=== PATIENT | male | born 1950 | race Caucasian/White ===

== ENCOUNTER → 2019-03-26 08:13 | Outpatient (BNVA) | payer BC, SELFPAY | PROVIDERS: Family Provider Nurse Practitioner Family; PCP Nurse Practitioner Family; Visit Provider Nurse Practitioner Family | DX: E87.1 Hypo-osmolality and hyponatremia (principal) | CPT/HCPCS: 84295 ==

== ENCOUNTER → 2019-04-05 07:48 | Outpatient (BNVA) | payer BC, SELFPAY | PROVIDERS: Family Provider Nurse Practitioner Family; PCP Nurse Practitioner Family; Visit Provider Anesthesiology | DX: M51.16 Intervertebral disc disorders with radiculopathy, lumbar region (principal); M48.061 Spinal stenosis, lumbar region without neurogenic claudication; M25.519 Pain in unspecified shoulder; M25.551 Pain in right hip | CPT/HCPCS: 62323; 77003; J1040; J2001; J3490 ==

== ENCOUNTER → 2019-05-03 12:40 | Outpatient (BNVA) | payer BC, SELFPAY | PROVIDERS: PCP Nurse Practitioner Family; Visit Provider Nurse Practitioner | DX: G89.29 Other chronic pain (principal); M54.41 Lumbago with sciatica, right side; Z79.891 Long term (current) use of opiate analgesic | CPT/HCPCS: 80053; 85025; 87493; 99212; 99213 ==

== ENCOUNTER → 2019-05-04 13:41 | Outpatient (BNVA) | payer BC, SELFPAY | PROVIDERS: Visit Provider Nurse Practitioner Family | DX: R19.7 Diarrhea, unspecified (principal); M48.061 Spinal stenosis, lumbar region without neurogenic claudication; M51.16 Intervertebral disc disorders with radiculopathy, lumbar region; I10 Essential (primary) hypertension; L30.9 Dermatitis, unspecified | CPT/HCPCS: 82270; 87505 ==

== ENCOUNTER 2019-05-18 12:59 | Outpatient (CLI) | payer BC, SELFPAY ==
[2019-05-18] MEDS: iohexol 300 mg/mL 50 mL Btl PO (13:56)
[2019-05-18] MEDS: iohexol 300 mg/mL 100 mL Btl IV (14:23)
--- NOTE | 2019-05-18 14:30 | CT_ITS ---
WS: [id number] CT ABDOMEN AND PELVIS WITH CONTRAST HISTORY: ABDOMINAL PAIN TECHNIQUE: Imaging performed of the abdomen and pelvis with IV contrast. Single phase imaging of the abdomen. Coronal and sagittal reformats are submitted. All CT scans at [facility] use at least one of these dose optimization techniques: automated exposure control; mA and/or kV adjustment per patient size (includes targeted exams where dose is matched to clinical indication); or iterativ e reconstruction. IV CONTRAST: Omnipaque 300; 95 mL IV. Oral contrast: Yes. DLP: 1224.16 mGycm COMPARISON: None available. Lower thorax: Lung bases are clear. Heart is normal size. Small hiatal hernia. Liver/biliary system: Normal size with no intrahepatic dilatation. Gallbladder: Normal. No gallstones or wall thickening. No pericholecystic fluid. Pancreas: Normal. Spleen: Normal. Adrenal glands: Normal. Right kidney: Normal. Left kidney: Normal. Aorta: Moderate calcification in aorta. No aneurysm. Lymphadenopathy: None. Free fluid: None. GI tract: Normal appendix. There is no constipation. No wall thickening or inflammatory changes. Ther e are a few diverticula in the descending and sigmoid colon with no acute diverticulitis. High densit y foci within the RIGHT colon may be medicinal tablets. Abdominal wall: Unremarkable abdominal wall. No hernia. Pelvis: Urinary bladder is well distended. There is mild diffuse thickening of the bladder wall but n o asymmetry. May be due to partial outlet obstruction. Prostate gland is only slightly enlarged. Bones: Moderate degenerative disc disease at L1-2, L3-4, L4-5. No fracture. Mild RIGHT convex curvatu re the lumbar spine. CT/CT abdomen pelvis w con* [id number] IMPRESSION: 1. No acute abdominal or pelvic abnormalities are identified. 2. Mild constipation. Mild distal diverticulosis without acute diverticulitis. 3. Partially calcified aorta.
== END 2019-05-18 13:00 | disposition home or self-care (01) ==
LOC: RADWPI 13:04
PROVIDERS: PCP Nurse Practitioner Family; Visit Provider Nurse Practitioner Family
DX: K59.00 Constipation, unspecified (principal); K57.90 Diverticulosis of intestine, part unspecified, without perforation or abscess without bleeding; I70.0 Atherosclerosis of aorta; R10.9 Unspecified abdominal pain
CPT/HCPCS: 74177; Q9967

== ENCOUNTER 2019-05-18 14:46 | Outpatient (CLI) | payer BC, SELFPAY ==
--- NOTE | 2019-05-18 15:15 | MR_ITS ---
WS: [id number] MRI LUMBAR SPINE NONCONTRAST TECHNIQUE: Sagittal T1, T2 and STIR imaging. Axial T1 and T2 imaging. CLINICAL INFORMATION: Numbness rt. foot followed by weakness in rt. leg COMPARISON: MRI August 23, 2017. FINDINGS: Mild lumbar curve. No acute compression. Multilevel degenerative disease with mild disc bulging throu ghout the lumbar spine. Prior postoperative changes left hemilaminectomy L4-5. S-shaped thoracolumbar scoliosis. Small disc protrusion T12-L1 with slight effacement of ventral thecal sac. Mild bilateral T12-L1 foraminal narrowing right greater than left. L1-L2: Mild disc bulging and osteophytic ridging. Mild central canal stenosis. Mild facet arthropathy . Moderate left and mild right foraminal narrowing. L2-L3: Mild annular bulging with slight effacement of ventral thecal sac. Moderate facet arthropathy. Spinal canal is patent. Foramen are patent. L3-L4: Mild disc bulging and osteophytic ridging with narrowing of the left subarticular recess. Mode rate facet arthropathy. Moderate left and no significant right foraminal narrowing. Mild central radha l stenosis. L4-L5: Small central disc osteophyte protrusion. Mild central canal stenosis. Narrowing of the subart icular recess bilaterally. Moderate facet arthropathy. Moderate right and mild left foraminal narrowi ng. L5-S1: L5 is partially sacralized. Spinal canal and foramen are patent. Visualized pelvic bony structures: Normal. Paravertebral soft tissues: Normal. MR/MR lumbar spine wo con* [id number] IMPRESSION: 1. Lumbar scoliosis. No acute compression fractures. 2. Mild central canal stenosis L1-2 and L3-4 unchanged. 3. Mild to moderate bony foraminal narrowing worse at left L1-2, left L3-4, an d right L4-5. 4. Narrowing of subarticular recess bilaterally L3-4 with central disc osteoph yte protrusion and mild central canal stenosis. 5. Stable disc osteophyte protrusion L4-5 with narrowing of the subarticular r ecess bilaterally and encroachment traversing L5 nerve roots is unchanged. 6. No significant interval changes since 2018
== END 2019-05-18 14:47 | disposition home or self-care (01) ==
LOC: RADSHAW 14:47
PROVIDERS: PCP Nurse Practitioner Family; Visit Provider Nurse Practitioner
DX: M54.41 Lumbago with sciatica, right side (principal); G89.29 Other chronic pain; M41.86 Other forms of scoliosis, lumbar region; M48.061 Spinal stenosis, lumbar region without neurogenic claudication; M25.78 Osteophyte, vertebrae; M51.26 Other intervertebral disc displacement, lumbar region
CPT/HCPCS: 72148

== ENCOUNTER 2019-06-18 08:05 | Outpatient (CLI) | payer BC, SELFPAY ==
--- NOTE | 2019-06-18 08:17 | XR_ITS ---
WS: [id number] LATERAL LUMBAR SPINE: 3 view. Lateral radiographs are performed in upright neutral, flexion and extension to the patient's toleranc e. HISTORY: Low back pain COMPARISON: 08/23/2017 Advanced degenerative disc disease at L3-4, L4-5 and L1-2. Endplate osteophytes. There is slight retr olisthesis of the lumbar vertebral bodies from L1 to L4. With flexion and extension no instability. S imilar findings as compared to the prior examination. XR/XR lumbar spine f/e only [id number] IMPRESSION: 1. Advanced degenerative spondylosis throughout the lumbar spine. 2. No lumbar spine instability.
--- NOTE | 2019-06-18 08:17 | MR_ITS ---
WS: [id number] MRI LUMBAR SPINE POSTCONTRAST HISTORY: Low back pain COMPARISON: Noncontrast lumbar spine 05/18/2019, 08/23/2017 TECHNIQUE: Sagittal and axial multisequence imaging is submitted. Postcontrast sequences only to be r ead in conjunction with the noncontrast from 05/18/2019. Prior LEFT hemilaminectomy defect at L4-5. S-shaped thoracolumbar scoliosis. Degenerative disc diseas e throughout the lumbar spine as indicated on the prior examination. No discitis or osteomyelitis. There is mild enhancement within the endplates throughout the lumbar sp ine, predominantly anterior and corresponds to areas of decreased signal on the T1 sequence. This cor responds to areas of edema and is probably reactive. No fluid or enhancement within the disc. At the L4-5 level is a LEFT hemilaminectomy defect. There is a small central disc protrusion and oste ophyte. No definite enhancement. Mild central and subarticular recess stenosis. Moderate RIGHT and mi ld LEFT foraminal stenosis. MR/MR lumbar spine w con [id number] IMPRESSION: 1. Status post LEFT hemilaminectomy defect at L4-5. There is a cyst or small c entral disc protrusion and osteophyte. No significant encroachment or narrowing . 2. Mild central and subarticular recess and bilateral foraminal stenosis at do lly osteophytes and ligamentum flavum disease. 3. No discitis or osteomyelitis.
== END 2019-06-18 08:06 | disposition home or self-care (01) ==
LOC: RADWPI 08:09
PROVIDERS: PCP Nurse Practitioner Family; Visit Provider Licensed Practical Nurse
DX: M54.5 Low back pain (principal); M47.816 Spondylosis without myelopathy or radiculopathy, lumbar region; M48.061 Spinal stenosis, lumbar region without neurogenic claudication
CPT/HCPCS: 72120; 72149; A9579

== ENCOUNTER → 2019-07-24 10:57 | Outpatient (BNVA) | payer BC, SELFPAY | PROVIDERS: PCP Nurse Practitioner Family; Visit Provider Nurse Practitioner Family | DX: R19.7 Diarrhea, unspecified (principal) | CPT/HCPCS: 85025 ==

== ENCOUNTER → 2019-09-13 13:26 | Outpatient (BNVA) | payer BC, SELFPAY | PROVIDERS: PCP Nurse Practitioner Family; Visit Provider Anesthesiology | DX: M51.16 Intervertebral disc disorders with radiculopathy, lumbar region (principal); M54.9 Dorsalgia, unspecified; M96.1 Postlaminectomy syndrome, not elsewhere classified; Z98.890 Other specified postprocedural states | CPT/HCPCS: 62323; J1040; J3490 ==

== ENCOUNTER → 2019-09-20 11:33 | Outpatient (BNVA) | payer BC, SELFPAY | PROVIDERS: PCP Nurse Practitioner Family; Visit Provider Nurse Practitioner Family | DX: R19.7 Diarrhea, unspecified (principal); F41.9 Anxiety disorder, unspecified; F32.9 Major depressive disorder, single episode, unspecified; G47.00 Insomnia, unspecified; I10 Essential (primary) hypertension; K57.92 Diverticulitis of intestine, part unspecified, without perforation or abscess without bleeding; E78.5 Hyperlipidemia, unspecified; Z68.29 Body mass index [BMI] 29.0-29.9, adult | CPT/HCPCS: 80053; 80061; 83036; 85025 ==

== ENCOUNTER → 2019-10-15 08:51 | Outpatient (BNVA) | payer BC, SELFPAY | PROVIDERS: PCP Nurse Practitioner Family; Visit Provider Internal Medicine | DX: E87.1 Hypo-osmolality and hyponatremia (principal); K52.9 Noninfective gastroenteritis and colitis, unspecified; I10 Essential (primary) hypertension | CPT/HCPCS: 99203 ==

== ENCOUNTER → 2019-10-17 08:01 | Outpatient (BNVA) | payer BC, SELFPAY | PROVIDERS: PCP Nurse Practitioner Family; Visit Provider Internal Medicine | DX: E87.1 Hypo-osmolality and hyponatremia (principal) | CPT/HCPCS: 80048; 82533; 84443 ==

== ENCOUNTER → 2019-10-24 08:23 | Outpatient (BNVA) | payer BC, SELFPAY | PROVIDERS: PCP Nurse Practitioner Family; Visit Provider Anesthesiology | DX: M51.16 Intervertebral disc disorders with radiculopathy, lumbar region (principal); M47.816 Spondylosis without myelopathy or radiculopathy, lumbar region; M48.061 Spinal stenosis, lumbar region without neurogenic claudication; M54.9 Dorsalgia, unspecified; M96.1 Postlaminectomy syndrome, not elsewhere classified; Z98.890 Other specified postprocedural states; Z79.891 Long term (current) use of opiate analgesic | CPT/HCPCS: 99212; 99213 ==

== ENCOUNTER → 2020-03-28 11:55 | Outpatient (BNVA) | payer BC, SELFPAY | PROVIDERS: PCP Nurse Practitioner Family; Visit Provider Nurse Practitioner Family | DX: E87.1 Hypo-osmolality and hyponatremia (principal); J32.9 Chronic sinusitis, unspecified; J01.00 Acute maxillary sinusitis, unspecified | CPT/HCPCS: 87071; 87880 ==

== ENCOUNTER → 2020-05-09 11:52 | Outpatient (BNVA) | payer BC, SELFPAY | PROVIDERS: PCP Nurse Practitioner Family; Visit Provider Nurse Practitioner Family | DX: I10 Essential (primary) hypertension (principal); Z13.6 Encounter for screening for cardiovascular disorders | CPT/HCPCS: 80053; 80061; 82947; 83036; 84443; 85025 ==

== ENCOUNTER → 2020-05-15 10:01 | Outpatient (BNVA) | payer BC, SELFPAY | PROVIDERS: PCP Nurse Practitioner Family; Visit Provider Anesthesiology | DX: M51.16 Intervertebral disc disorders with radiculopathy, lumbar region (principal); M51.36 Other intervertebral disc degeneration, lumbar region; M47.816 Spondylosis without myelopathy or radiculopathy, lumbar region; M48.061 Spinal stenosis, lumbar region without neurogenic claudication; M54.9 Dorsalgia, unspecified; M96.1 Postlaminectomy syndrome, not elsewhere classified; Z98.890 Other specified postprocedural states | CPT/HCPCS: 62323; J1040; J3490 ==

== ENCOUNTER → 2020-06-13 13:45 | Outpatient (BNVA) | payer BC, SELFPAY | PROVIDERS: PCP Nurse Practitioner Family; Visit Provider Anesthesiology | DX: M48.061 Spinal stenosis, lumbar region without neurogenic claudication (principal); M51.16 Intervertebral disc disorders with radiculopathy, lumbar region; M47.816 Spondylosis without myelopathy or radiculopathy, lumbar region; M51.36 Other intervertebral disc degeneration, lumbar region; M54.9 Dorsalgia, unspecified; M96.1 Postlaminectomy syndrome, not elsewhere classified; Z98.890 Other specified postprocedural states; Z79.891 Long term (current) use of opiate analgesic | CPT/HCPCS: 99212 ==

== ENCOUNTER → 2020-07-10 10:30 | Outpatient (BNVA) | payer BC, SELFPAY | PROVIDERS: PCP Nurse Practitioner Family; Visit Provider Nurse Practitioner Family | DX: R63.5 Abnormal weight gain (principal); I10 Essential (primary) hypertension | CPT/HCPCS: 80053; 82306; 82607; 84443; 85025 ==

== ENCOUNTER → 2020-08-28 11:27 | Outpatient (BNVA) | payer BC, SELFPAY | PROVIDERS: PCP Nurse Practitioner Family; Visit Provider Nurse Practitioner Family | DX: R11.0 Nausea (principal); R63.0 Anorexia; I10 Essential (primary) hypertension; Z68.32 Body mass index [BMI] 32.0-32.9, adult | CPT/HCPCS: 80053; 85025 ==

== ENCOUNTER 2020-09-26 09:29 | Outpatient (CLI) | payer BC, SELFPAY ==
--- NOTE | 2020-09-26 10:00 | NM_ITS ---
WS: [id number] NUCLEAR MEDICINE HIDA SCAN WITH GALLBLADDER EJECTION FRACTION HISTORY: R10.11 - Right upper quadrant pain COMPARISON: None available. TECHNIQUE: The patient was intravenously injected with 5.1 mCi of TC99m Mebrofenin. Immediate imaging over the right upper quadrant was followed by 5 minute image and additional images for a total of 60 minutes. Normal uptake of radiotracer throughout the liver. Activity identified in the gallbladder at 5 minutes and well distended by 60 minutes. Activity in the proximal small bowel was seen by 30 minutes. Good washout of the radiotracer from the liver by 60 minutes. The patient then drank 8 ounces of Ensure Plus. Ejection fraction at 60 minutes was 93%. Normal GB ej ection fraction is 35-75%. Post fatty meal symptoms: None. NM/NM hepatobiliary w phar* [id number] IMPRESSION: 1. Normal HIDA scan. 2. Normal gallbladder ejection fraction.
== END 2020-09-26 09:30 | disposition home or self-care (01) ==
LOC: RAD 09:34
PROVIDERS: PCP Nurse Practitioner Family; Visit Provider Nurse Practitioner Family
DX: R10.11 Right upper quadrant pain (principal)
CPT/HCPCS: 78227; A9537

== ENCOUNTER → 2020-10-30 09:57 | Outpatient (BNVA) | payer BC, SELFPAY | PROVIDERS: PCP Nurse Practitioner Family; Visit Provider Anesthesiology | DX: G89.29 Other chronic pain (principal); M48.061 Spinal stenosis, lumbar region without neurogenic claudication; M51.16 Intervertebral disc disorders with radiculopathy, lumbar region; M51.36 Other intervertebral disc degeneration, lumbar region; M96.1 Postlaminectomy syndrome, not elsewhere classified | CPT/HCPCS: 62323; J1040; J3490 ==

== ENCOUNTER 2020-12-16 08:28 | Outpatient (CLI) | payer BC, SELFPAY ==
--- NOTE | 2020-12-16 08:45 | MR_ITS ---
WS: [id number] MRI LUMBAR SPINE NONCONTRAST HISTORY: M54.5 - Low back pain COMPARISON: 06/18/2019 TECHNIQUE: Sagittal and axial multisequence imaging is submitted. 2 to 3 mm retrolisthesis of T12, L1 and L3. Advanced degenerative disc disease throughout the lumbar spine. Most significant narrowing at L3-4 and L4-5. Endplates T12, L1, L4 and L5. No acute fractures. Conus terminates normally at L1-2 disc level. T12-L1: RIGHT foraminal disc protrusion seen only on the sagittal sequence. L1-L2: Diffuse annular disc bulging and osteophytic ridging. Moderate bilateral facet joint hypertrop hy and ligamentum flavum hypertrophy. Mild central, bilateral subarticular and foraminal stenosis. Sl ightly greater stenosis on the LEFT. No progression since the prior study. L2-L3: Mild annular disc bulging and osteophytic ridging with mild ligamentum flavum and facet arthri tis. No significant stenosis. L3-L4: Diffuse annular disc bulging and osteophytic ridging. Moderate size LEFT paracentral disc prot rusion. Disc and osteophyte contributing to mild central stenosis with deformity of the LEFT lateral thecal sac. Moderate LEFT subarticular recess and foraminal narrowing. Mild RIGHT foraminal narrowing . L4-L5: Moderate annular disc bulge with a focal moderate size central disc protrusion contacting and slightly displacing the thecal sac. Mild contact on the traversing L5 nerve roots. There is also oste ophytic ridging with ligamentum flavum and facet arthritis. Facet arthritis greater on the RIGHT. Mod erate bilateral subarticular and RIGHT foraminal stenosis. Mild LEFT foraminal stenosis. No change. L5-S1: Mild facet joint arthritis. MR/MR lumbar spine wo con* [id number] IMPRESSION: 1. Mild progression of degenerative disc disease and spondylitic changes since 06/18/2019. 2. LEFT paracentral disc protrusion at L3-4 with additional disc and facet dis ease contributing to moderate LEFT subarticular foraminal stenosis. 3. Moderate size central disc protrusion at L4-5 with contact on the traversin g L5 nerve roots. Mild central stenosis at L4-5 with moderate bilateral subarti cular and RIGHT foraminal stenosis. 4. Mild central, bilateral subarticular foraminal stenosis at L1-2.
== END 2020-12-16 08:29 | disposition home or self-care (01) ==
PROVIDERS: PCP Nurse Practitioner Family; Visit Provider Nurse Practitioner Family
DX: G89.29 Other chronic pain (principal); M51.36 Other intervertebral disc degeneration, lumbar region; M51.26 Other intervertebral disc displacement, lumbar region
CPT/HCPCS: 72110; 72148

== ENCOUNTER → 2021-01-16 00:01 | Outpatient (BNVA) | payer BC, SELFPAY | PROVIDERS: PCP Nurse Practitioner Family; Visit Provider Orthopaedic Surgery | DX: Z20.822 Contact with and (suspected) exposure to COVID-19 (principal) | CPT/HCPCS: 87635 ==

== ENCOUNTER 2021-01-23 08:29 | Day surgery (SDC) | payer BC, SELFPAY ==
--- NOTE | 2021-01-20 11:25 | ECG_ITS ---
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 Measurements Intervals Lee Rate: 93 P: 60 IA: 160 QRS: -19 QRSD: 99 T: 21 QT: 328 QTc: 409 Interpretive Statements SINUS RHYTHM WITH OCCASIONAL VENTRICULAR PREMATURE COMPLEXES MINIMAL VOLTAGE CRITERIA FOR LVH, CONSIDER NORMAL VARIANT [MEETS CRITERIA IN ONE OF: R(aVL), S(V1), R(V5), R(V5/V6)+S(V1)] No previous ECG available for comparison Electronically Signed On 01-21-2021 7:38:25 ASSISTED LIVING CARE MANAGER by Sandy Estevez M.D. [id number]
[2021-01-20 11:44] VITALS: BMI 33.2
--- NOTE | 2021-01-20 11:58 | ANES.PREANE2 ---
Pre-Anesthetic Assessment Pre-Anesthetic Assessment: Height/Weight: Height 1.75 m Weight 102.058 kg Proposed Procedure: Operation Date: 01/23/21 09:35 Proposed Procedures p Lumbar Spine Decompression [id number] M48.062(Not Applicable) - Julian Byers, DO Was Beta Rosa taken within 24 hours: Yes Was Clonidine taken within 24 hours: N/A Social: Social History: No tobacco Exam: Pre-Anes Outpt Exam: alert, oriented x 3, clear to auscultation bilaterally and regular rate & rhythm Airway: Submandibular: WNL Cervical ROM: WNL MP: 2 Dentition: False History/ROS: No significant history except as noted and No significant complaints CV/HEM: CV/HEM: HTN GI: GI: GERD (Well-controlled.) Metabolic: Metabolic: Hyperlipidemia and Morbid obesity Comments: BMI 33 Anesthetic Plan: ASA status: 3 Anesthesia: Anesthesia Evaluation and General Risk of > 500 ml blood loss (7ml/kg in children): No PFSH Anesthesia PFSH: Medical History Chronic low back pain Degenerative disc disease, lumbar Diverticulosis DJD (degenerative joint disease), lumbar Hip pain, right History of colon polyps Hyperlipidemia Hypertension Internal hemorrhoids Intervertebral disc disorder with radiculopathy of lumbar region Opioid contract exists Shoulder pain Thoracogenic scoliosis Surgical History History of carpal tunnel surgery History of vasectomy Status post hemilaminotomy 05/21/2015 Dr. Jennifer Madden. Left L3-L4, L4-L5 hemilaminotomy, dissectomy/foraminotomy Family History Father Heart disease Social History Smoking and tobacco status: former smoker (25 years ) Second hand smoke exposure: No Alcohol intake: current Alcohol intake frequency: holidays/special occasions only Lives independently: Yes Household members: spouse Marital status: service: No Current occupational status: retired History of recent travel: No Current gender identity: Male Special danita needs: No Data Anesthesia Cardiac Studies: No Data to Display
[2021-01-23] VITALS (7 sets, daily range): BP systolic 141–158; BP diastolic 87–97; PULSE 68–94; RESP 15–20; TEMP 36.2–36.9; O2SAT 92–99
--- NOTE | 2021-01-23 | SCC_ITS ---
Procedure Done: 1. Right L3/4 laminectomy with partial facetectomy 2. Right L4/5 laminectomy with partial facetectomy 24.4 seconds of fluoroscopic guidance, for a cumulative dose of 18.00 mGy, was provided to Dr. Byers by the radiology department. C-arm images of the lumbar spine were saved for the patient's permanent record. [facility]
--- NOTE | 2021-01-23 | XR_ITS ---
WS: [id number] Lumbar spine, C-arm fluoroscopy, 01/23/2021 Clinical Data: lumbar decompression Comparison: None. Findings: Dr. Byers performed a lumbar decompression. XR/XR lumbar spine 2-3V* [id number] Impression: Lumbar decompression.
--- NOTE | 2021-01-23 09:13 | P.ANESUD_ITS ---
Pre-Anesthetic Update Pre-Anesthetic Assessment: Date of Surgery/Procedure: 01/23/21 Preop Natasha gnosis: Lumbar stenosis Proposed Procedure: Operation Date: 01/23/21 09:50 Proposed Procedures p Lumbar Spine Decompression [id number] M48.062(Not Applicable) - Julian Byers, DO Any changes to Pre-Anesthetic Assessment?: No Last Intake: Intake Last Liquid Date 01/22/21 Last Liquid Time 19:00 Last Solid Date 01/22/21 Last Solid Time 19:00 Vitals: Temperature 98.4 F 01/23/21 08:43 Temperature Source Tympanic 01/23/21 08:43 Pulse Rate 68 01/23/21 08:43 Pulse Rhythm 01/23/21 08:45 Pulse Strength 3+ Normal 01/23/21 08:45 Respiratory Rate 18 01/23/21 08:43 Blood Pressure 141/87 01/23/21 08:43 Blood Pressure Myla n 105 01/23/21 08:43 Pulse Oximetry 96 01/23/21 08:43 Oxygen Delivery Me thod 01/23/21 08:45 Exam: Pre-Anes Outpt Exam: alert, oriented x 3, clear to auscultation bilaterally and regular rate & rhythm Cardiac Studies: No Data to Display
[2021-01-23] MEDS: sodium chloride 0.9% 1,000 ML 30 ML IV (09:15)
--- NOTE | 2021-01-23 09:21 | P.HP_ITS ---
Providers/Chief Complaint Primary Care Provider: SHREE Ackerman Chief Complaint: lumbar decompession History of Present Illness Marcos Marino is a 70 year old male low back pain that radiates into his right hip with no known injury. He is here today with his . He states he has tried epidural injections over the last 3 years with the last injection on 10/30/20 lasting 3 weeks. He feels the last two injections increased his pain. He noted improvement in his pain after his spine surgery in 2016. He is unable to walk any distance without pain. Chief Complaint: low back Onset: years Duration: years Characteristics: stabbing pain Severity: 05/21 Location: low back Radiating symptoms: right hip Aggravating factors: walking, standing Alleviating factors: ibuprofen with minimal relief Neuro deficits: denies numbness, tingling, weakness, incontinence of bowel/bladder, saddle anesthesia. Prior tx: 05/21/15 L3-L4, L4-L5 hemilaminotomy/discectomy/foraminotomy surgery with Dr. Madden,lumbar epidrual injections with relief for 3 weeks last injection on 10/30/20. Review of Systems Narrative: General ROS: negative for weight changes, fever ENT ROS: negative for nasal congestion, drainage or bleeding, sore throat, dysphagia or ear pain Eyes: PERRL Hematological and Lymphatic ROS: negative for swollen glands or abnormal bleeding Endocrine ROS: negative for polyuria/polydpsia or new changes in weight Respiratory ROS: negative for cough, shortness of breath, or wheezing Cardiovascular ROS: negative for chest pain or dyspnea on exertion Gastrointestinal ROS: negative for reflux, abdominal pain, change in bowel habits, or black or bloody stools Musculoskeletal ROS: negative for back pain, neck pain, or joint pain or swelling except for current problem Neurological ROS: negative for TIA or stoke symptoms Skin: no rashes Medications/Allergies Home Medications Medication Instructions Recorded Confirmed Last Taken Type aspirin 81 mg tablet,delayed 81 mg PO DAILY tab 03/27/19 01/23/21 01/15/21 History release multivitamin 1 tab PO QAM 03/27/19 01/23/21 01/20/21 History triamcinolone acetonide 0.1 % 1 applic TOPICAL BID #80 gm 05/03/19 01/20/21 Unknown Rx topical cream diphenoxylate-atropine 2.5 1 tab PO TID PRN #30 tab 11/28/19 01/23/21 Unknown Rx mg-0.025 mg tablet metoprolol tartrate 50 mg tablet 50 mg PO BID #180 tab 08/20/20 01/23/21 01/23/21 Rx sodium chloride 1 gram tablet See Rx Instructions .ROUTE 09/29/20 01/23/21 01/22/21 Rx .COMPLEX #90 tab ondansetron HCl 4 mg tablet See Rx Instructions .ROUTE 11/19/20 01/20/21 Unknown Rx .COMPLEX #30 tab pantoprazole 40 mg tablet,delayed See Rx Instructions .ROUTE 11/19/20 01/23/21 Unknown Rx release .COMPLEX #30 tab budesonide 3 mg PO DAILY 01/20/21 01/23/21 01/23/21 History amlodipine [Norvasc] 10 mg PO DAILY 01/23/21 01/23/21 01/22/21 History atorvastatin 20 mg PO DAILY 01/23/21 01/23/21 01/22/21 History buspirone 10 mg PO DAILY 01/23/21 01/23/21 01/23/21 History lisinopril 40 mg PO DAILY 01/23/21 01/23/21 01/22/21 History Allergies Allergy/AdvReac Type Severity Reaction Status Date / Time No Known Allergies Allergy Verified 01/23/21 08:34 PFSH Acute PFSH: Medical History Chronic low back pain Degenerative disc disease, lumbar Diverticulosis DJD (degenerative joint disease), lumbar Hip pain, right History of colon polyps Hyperlipidemia Hypertension Internal hemorrhoids Intervertebral disc disorder with radiculopathy of lumbar region Opioid contract exists Shoulder pain Thoracogenic scoliosis Surgical History History of carpal tunnel surgery History of vasectomy Status post hemilaminotomy 05/21/2015 Dr. Jennifer Madden. Left L3-L4, L4-L5 hemilaminotomy, dissectomy/foraminotomy Family History Father Heart disease Social History Smoking and tobacco status: former smoker (25 years ) Second hand smoke exposure: No Alcohol intake: current Alcohol intake frequency: holidays/special occasions only Lives independently: Yes Household members: spouse Marital status: service: No Current occupational status: retired History of recent travel: No Current gender identity: Male Special danita needs: No Vitals/I&O/Wt Last Vital Signs Temp 98.4 F 01/23/21 08:43 Pulse 68 01/23/21 08:43 Resp 18 01/23/21 08:43 BP 141/87 01/23/21 08:43 Pulse Ox 96 01/23/21 08:43 Physical Exam Narrative: EXAM NARRATIVE: CONSTITUTIONAL: The patient is a normal appearing [] in no apparent distress. GENERAL: Patient in no acute distress. CARDIAC: Regular rate and rhythm. CHEST: Normal inspiratory effort, normal respiratory rate. ABDOMEN: Soft and nontender. SKIN: Clear, warm and intact. NEURO?PSYCH: The patient is alert and oriented to person, place and time. Sensorv /SILT Motor StrengthShoulder abduction C5 5/5Wrist extension C6 5/5Elbow extension C7 5/5Hand Graphic Design Intern C8 5/5Finger abduction T15/5 Radial/ Ulnar/ Median n intact LowerSensory (SILT)Motor StrengthHin flexion L2/3Ant/inner thigh 5/5Hip adduction L2/3 5/5Knee extension L4 Lat thigh, 5/5Toe dorsiflexion L5 5/5Ankle dorsiflexion L5/ C12Qlwzphj flexion S1 5/5 DTRBleeps 2+Triceps 2+Brachioradialis 2+Patellar 2+Achilles 2+ MUSCULOSKELETAL: [] UPPEREXTREMITIES: The patient had full active ROM in fingers, wrist, elbow, and shoulder. The patient demonstrated ability to fully flex/extend/abduct/adduct fingers, make ok sign, cross 2nd/3rd digits, extend 1st digit fully.. Radial pulse 2+, CR<2 seconds. LOWER EXTREMITIES: Pt has full, active ROM of toes, ankle, knee, and hip. Dorsalis pedis/posterior tibialis pulses 2+, CR<2 seconds. SPINE: Skin warm, dry, intact. Data : 01/23/21 08:59 A&P Assessment and plan (1) Lumbar stenosis with neurogenic claudication: Right L3/4 and L4/5 MIS decompression Status: Acute Attestations Medical Necessity Statement*: failed conservative tx Coding Level of Care Code Acute Planned Giving Officer for Chg Fwd Diagnoses Lumbar stenosis with neurogenic claudication M48.062
--- NOTE | 2021-01-23 09:23 | W.PM.OPSUD ---
Surgery/Procedure H&P Update DATE OF PROCEDURE: January 23, 2021 DATE H&P PERFORMED: 01/23/21 H&P UPDATE INFORMATION: I have reviewed H&P completed within last 30 days PREOP DIAGNOSIS: Lumbar stenosis PLANNED PROCEDURE: Operation Date: 01/23/21 09:50 Proposed Procedures p Lumbar Spine Decompression [id number] M48.062(Not Applicable) - Julian Byers DO
[2021-01-23 09:57] LABS: Anion Gap 13.7 (5-19); Blood Urea Nitrogen 12 mg/dL (8-23); Calcium 8.9 mg/dL (8.5-10.5); Carbon Dioxide 29 mmol/L (22-29); Chloride 91 mmol/L (98-107); Glomerular Filtration Rate 83.9 mL/min (90-130); Glucose 92 mg/dL (65-115); Osmolality Calculated 269 mOsm/kg (285-295); Potassium 3.7 mmol/L (3.5-5.1); Sodium 130 mmol/L (136-145)
--- NOTE | 2021-01-23 11:00 | P.OP_ITS ---
Operative Report Date of procedure: January 23, 2021 Pre-op Diagnosis: Lumbar stenosis with neurogenic claudication Post-op diagnosis: same Procedure Done: 1. Right L3/4 laminectomy with partial facetectomy 2. Right L4/5 laminectomy with partial facetectomy Surgeon: Julian Byers Ironing Machine Operator: Jose Alfredo Escobedo Ironing Machine Operator: The neurosurgical nurse practitioner, Jose Alfredo Escobedo, NEGAR was needed for his expertise under the microscope. He was important and necessary throughout the procedure to complete in a safe and timely manner. He assisted with patient positioning prepping and draping tissue retraction suctioning of the operative field protection of the dural sac and tissue closure Anesthesia: General Estimated blood loss (mL): 5 Condition: stable Disposition: PACU Procedure: Patient is brought to the operative suite. After undergoing anesthesia they are placed in the prone position. All areas of impingement are well padded. Patient is then prepped and draped in the normal sterile fashion. A skin incision is made over the L3/4 level. This is confirmed under c-arm guidance. A series of dilators are passed and the tubular retractor is docked on the L3 lamina. A bovie is used to clear the soft tissue off the lamina and the L 3/4 facet joint. A high speed alfonzo is then used to perform the laminectomy and take down the medial aspect of the L 3/4 facet joint. A kerrison rongeure was then used to take down the remaining lamina and smooth the edge of the laminectomy up to the point where the ligamentum flavum attaches. Attention was then brought to the medial aspect of the facet joint. The remai trudy medial aspect of the superior and inferior aspect of the facet joint were taken down with the kerrison from the pedicle of L3 to L 4. The facet joint had significant hypertrophy. Attention was then brought to the Ligamentum Flavum. The ligament was taken down from the lamina of L3 to L4 and out medially to the remaining facet joint. The ligament was thick. The dura was then exposed. The dura was in good repair. The L3 nerve was then traced with a curette out the L3/4 foramen and found to be adequately decompressed. The L4 nerve was traced with a curette around the L4 pedicle. The lateral recess was opened with a kerrison helping to further decompress the L4 nerve. A skin incision is made over the L4/5 level. This is confirmed under c-arm guidance. A series of dilators are passed and the tubular retractor is docked on the L4 lamina. A bovie is used to clear the soft tissue off the lamina and the L 4/5 facet joint. A high speed alfonzo is then used to perform the laminecto my and take down the medial aspect of the L 4/5 facet joint. A kerrison rongeure was then used to take down the remaining lamina and smooth the edge of the laminectomy up to the point where the ligamentum flavum attaches. Attention was then brought to the medial aspect of the facet joint. The remaining medial aspect of the superior and inferior aspect of the facet joint were taken down with the kerrison from the pedicle of L4 to L 5. The facet joint had significant hypertrophy. Attention was then brought to the Ligamentum Flavum. The ligament was taken down from the lamina of L4 to L5 and out medially to the remaining facet joint. The ligament was thick. The dura was then exposed. The dura was in good repair. The L4 nerve was then traced with a curette out the L4/5 foramen and found to be adequately decompressed. The L5 nerve was traced with a curette around the L5 pedicle. The lateral recess was opened with a kerrison helping to further decompress the L5 nerve. Wound is then irrigated copiously with saline and surgiflo is used to stop any bleeding. The tubular retractor is removed and the wound is closed with vicryl and monocryl suture. Glue is then used to protect the wound. A sterile dressing is then placed. Patient was then placed in the supine position and transferred to the PACU in stable condition.
[2021-01-23] MEDS: HYDROcodone-acetaminophen 5-325 mg Tablet 1 TAB PO (12:07)
== END 2021-01-23 12:18 | disposition home or self-care (01) ==
PROVIDERS: PCP Nurse Practitioner Family; Visit Provider Orthopaedic Surgery
PROC: (CPT 63005; principal; 2021-01-23 09:50)
DX: M48.062 Spinal stenosis, lumbar region with neurogenic claudication (principal); G89.29 Other chronic pain; I10 Essential (primary) hypertension; M54.50 Low back pain, unspecified; M51.36 Other intervertebral disc degeneration, lumbar region; Z79.82 Long term (current) use of aspirin
CPT/HCPCS: 63047; 63048; 72100; 76000; 80048; 93005; J0690; J1100; J2405; J2704; J2710; J3010; J3490; J7030

== ENCOUNTER → 2021-02-23 10:19 | Outpatient (BNVA) | payer BC, SELFPAY | PROVIDERS: PCP Nurse Practitioner Family; Visit Provider Nurse Practitioner Family | DX: I10 Essential (primary) hypertension (principal); K52.9 Noninfective gastroenteritis and colitis, unspecified; K50.90 Crohn's disease, unspecified, without complications; R79.89 Other specified abnormal findings of blood chemistry | CPT/HCPCS: 80053; 80061; 82607; 83036; 84439; 84443; 85025 ==

== ENCOUNTER 2021-03-10 10:59 | Outpatient (RCR) | payer BC, SELFPAY | END 2021-03-13 23:59 | disposition home or self-care (01) | LOC: TPT 10:59 | PROVIDERS: PCP Nurse Practitioner Family; Referring Provider Orthopaedic Surgery; Visit Provider Orthopaedic Surgery | DX: M48.061 Spinal stenosis, lumbar region without neurogenic claudication (principal) | CPT/HCPCS: 97110; 97163 ==

== ENCOUNTER 2021-03-14 06:00 | Outpatient (RCR) | payer BC, SELFPAY | END 2021-04-13 23:59 | disposition home or self-care (01) | LOC: TPT 06:00 | PROVIDERS: PCP Nurse Practitioner Family; Referring Provider Orthopaedic Surgery; Visit Provider Orthopaedic Surgery | DX: Z47.89 Encounter for other orthopedic aftercare (principal) | CPT/HCPCS: 97110 ==

== ENCOUNTER 2021-03-23 14:28 | Outpatient (CLI) | payer BC, SELFPAY ==
[2021-03-28 18:32] LABS: Pancreatic Elastase-1 472 mcg/g
== END 2021-03-23 14:29 | disposition home or self-care (01) ==
PROVIDERS: PCP Nurse Practitioner Family; Visit Provider Internal Medicine Gastroenterology
DX: K52.9 Noninfective gastroenteritis and colitis, unspecified (principal); K51.90 Ulcerative colitis, unspecified, without complications
CPT/HCPCS: 82710; 83520; 87506

== ENCOUNTER 2021-04-14 06:00 | Outpatient (RCR) | payer BC, SELFPAY | END 2021-04-24 23:59 | disposition home or self-care (01) | LOC: TPT 06:00 | PROVIDERS: PCP Nurse Practitioner Family; Referring Provider Orthopaedic Surgery; Visit Provider Orthopaedic Surgery | DX: M48.061 Spinal stenosis, lumbar region without neurogenic claudication (principal) | CPT/HCPCS: 97110; 97164 ==

== ENCOUNTER → 2021-09-30 15:05 | Outpatient (BNVA) | payer BC, SELFPAY | PROVIDERS: PCP Nurse Practitioner Family; Visit Provider Emergency Medicine | DX: M25.532 Pain in left wrist (principal); M19.042 Primary osteoarthritis, left hand | CPT/HCPCS: 73110 ==

== ENCOUNTER → 2021-10-01 11:49 | Outpatient (BNVA) | payer BC, SELFPAY | PROVIDERS: PCP Nurse Practitioner Family; Visit Provider Nurse Practitioner Family | DX: R79.89 Other specified abnormal findings of blood chemistry (principal); E78.5 Hyperlipidemia, unspecified; E87.1 Hypo-osmolality and hyponatremia; F41.9 Anxiety disorder, unspecified; F32.9 Major depressive disorder, single episode, unspecified; I10 Essential (primary) hypertension; M25.531 Pain in right wrist | CPT/HCPCS: 80053; 84550 ==

== ENCOUNTER → 2021-10-21 08:37 | Outpatient (BNVA) | payer BC, SELFPAY | PROVIDERS: PCP Nurse Practitioner Family; Visit Provider Nurse Practitioner Family | DX: M25.531 Pain in right wrist (principal); R73.9 Hyperglycemia, unspecified; R79.89 Other specified abnormal findings of blood chemistry; E87.1 Hypo-osmolality and hyponatremia; E78.5 Hyperlipidemia, unspecified; I10 Essential (primary) hypertension | CPT/HCPCS: 80053; 80061; 83036; 84439; 84443; 84550; 85025; G0103 ==

== ENCOUNTER → 2021-11-19 09:08 | Outpatient (BNVA) | payer BC, SELFPAY | PROVIDERS: PCP Nurse Practitioner Family; Visit Provider Family Medicine | DX: M48.062 Spinal stenosis, lumbar region with neurogenic claudication (principal); R79.89 Other specified abnormal findings of blood chemistry | CPT/HCPCS: 80053; 86705; 86706; 86709; 86803; 87340 ==

== ENCOUNTER → 2021-12-31 09:06 | Outpatient (BNVA) | payer BC, SELFPAY | PROVIDERS: PCP Nurse Practitioner Family; Visit Provider Nurse Practitioner Family | DX: E87.1 Hypo-osmolality and hyponatremia (principal) | CPT/HCPCS: 80048 ==

== ENCOUNTER → 2022-06-15 14:10 | Outpatient (BNVA) | payer BC, SELFPAY | PROVIDERS: PCP Nurse Practitioner Family; Visit Provider Physician Assistant | DX: M51.36 Other intervertebral disc degeneration, lumbar region (principal); M48.062 Spinal stenosis, lumbar region with neurogenic claudication | CPT/HCPCS: 72110 ==

== ENCOUNTER 2022-07-07 13:26 | Outpatient (CLI) | payer BC, SELFPAY ==
--- NOTE | 2022-07-07 13:45 | MR_ITS ---
WS: [id number] MRI LUMBAR SPINE NONCONTRAST HISTORY: fall COMPARISON: 12/16/2020 TECHNIQUE: Sagittal and axial multisequence imaging is submitted. Retrolisthesis of T12 and L1. No marrow edema or fracture. Advanced degenerative disc disease and spo ndylitic changes. No fracture. Marrow edema in the adjacent endplates of T12 and L1. Conus terminates normally at L1-2 disc level. T12-L1: Diffuse annular disc bulging and osteophytic ridging. Central, bilateral subarticular recess and foraminal stenosis. Similar to the prior study. L1-L2: Diffuse annular disc bulging and osteophytic ridging with facet arthritis. Greater facet joint arthritis on the LEFT. Mild central, bilateral subarticular recess and foraminal stenosis. L2-L3: Diffuse annular disc bulging slightly greater to the RIGHT. Ligamentum flavum and facet arthri tis. Mild central, bilateral subarticular recess and foraminal stenosis. L3-L4: Diffuse annular disc bulging with osteophytic ridging. LEFT paracentral disc protrusion contac ting and displacing the thecal sac. Mild central with moderate bilateral subarticular recess and fora shaggy stenosis. Greater contact on the traversing LEFT L4 nerve root. L4-L5: Marked annular disc bulging with osteophytic ridging and facet disease. Central disc protrusio n. Mild central with moderate bilateral subarticular recess and foraminal stenosis. L5-S1: Bilateral facet joint arthritis. No high-grade stenosis. Paravertebral soft tissues are unchanged. Atherosclerosis aorta. MR/MR lumbar spine wo con* [id number] IMPRESSION: 1. Mild progression of degenerative disc and facet disease throughout the lumb ar spine since 2020. 2. LEFT paracentral disc protrusion at L3-4 is reidentified. This protrusion c ontacts the traversing LEFT L4 nerve root. There is mild central with moderate bilateral subarticular recess and foraminal stenosis at L3-4 which is mildly pr ogressed. 3. Central disc protrusion at L4-5 with moderate bilateral subarticular recess and foraminal stenosis. Mild progression since the prior study. 4. Mild central, bilateral subarticular recess and foraminal stenosis at T12-L 1, L1-2 and L2-3. 5. No acute fracture. Small amount of marrow edema in the adjacent endplates o f T12 and L1.
== END 2022-07-07 13:27 | disposition home or self-care (01) ==
LOC: RAD 13:33
PROVIDERS: PCP Nurse Practitioner Family; Visit Provider Physician Assistant
DX: M48.062 Spinal stenosis, lumbar region with neurogenic claudication (principal); M47.816 Spondylosis without myelopathy or radiculopathy, lumbar region; M51.26 Other intervertebral disc displacement, lumbar region; W18.30XA Fall on same level, unspecified, initial encounter; Y93.9 Activity, unspecified; Y92.9 Unspecified place or not applicable; Y99.9 Unspecified external cause status
CPT/HCPCS: 72148

== ENCOUNTER → 2022-07-15 11:48 | Outpatient (BNVA) | payer BC, SELFPAY | PROVIDERS: PCP Nurse Practitioner Family; Visit Provider Nurse Practitioner Family | DX: R73.9 Hyperglycemia, unspecified (principal) | CPT/HCPCS: 80053; 80061; 81000; 82306; 82607; 83036; 83735; 84443; 85025; G0103 ==

== ENCOUNTER 2022-07-16 16:23 | Observation (INO) | payer BC, SELFPAY ==
[2022-07-16] VITALS (7 sets, daily range): BP systolic 120–150; BP diastolic 77–103; PULSE 61–77; RESP 18; TEMP 36.7; O2SAT 94–97; BMI 31.8
--- NOTE | 2022-07-16 19:31 | USR_ITS ---
PROCEDURE INFORMATION: Exam: US Abdomen, Limited; Right Upper Quadrant Exam date and time: 07/16/2022 9:40 PM Age: 71 years old Clinical indication: Abdominal pain; Acute; Additional info: Ruq, PT is jaundiced, eval ruq and epigastric TECHNIQUE: Imaging protocol: Real time ultrasound of the abdomen with image documentation. Limited exam focused on the right upper quadrant. COMPARISON: US abdomen limited [id number] 01/20/2017 7:26 AM FINDINGS: Liver: Liver is 19 cm, echogenic. No focal liver mass is noted. Gallbladder: The gallbladder contains sludge. It also contains a tiny 9 mm polyp. No gallbladder wall thickening. Biliary ducts: No evidence of intrahepatic biliary dilation. No CBD dilation. Pancreas: The pancreas is not well seen due to overlying bowel gas. It shows no focal abnormality, however. Right kidney: Unremarkable. No solid renal mass or hydronephrosis. Intraperitoneal space: Ubfy-ve-hdiuines free fluid. US/US abdomen limited [id number] IMPRESSION: 1. Gallbladder sludge and a subcentimeter polyp with no strong sonographic evidence of cholelithiasis or cholecystitis. 2. Large and fatty liver. 3. Ubbq-es-eysadbmx ascites.
--- NOTE | 2022-07-16 19:52 | W.ED.RECABL ---
HPI - Recheck/Abnormal Lab/Rx General: Chief Complaint: Recheck/Abnormal Lab/Rx Stated Complaint: abnormal labs Time Seen by Provider: 07/16/22 18:40 Source: patient and family Mode of arrival: ambulatory (With cane) Limitations: no limitations History of Present Illness: Patient presents emergency department today accompanied by his for evaluation treatment of abnormal labs. Patient states he was at his primary care doctor yesterday for his normal yearly examination. He had been having various symptoms-primarily fatigue and concentrated urine that was brought up yesterday. Patient's chart review also indicates he had been having lower blood pressure readings with some lightheadedness and he began weaning himself off of his blood pressure medications. Patient states as of yesterday, his primary care doctor encouraged him to take half of a metoprolol pill in the morning and at night-he is to hold his other blood pressure medications. Patient also has not had his levothyroxine since January. He states there was some sort of mixup at the pharmacy and he received 1 month of the medication back in December but has not had any since. Patient states he was told he had various abnormal labs but, they were very concerned regarding his liver tests and wanted him to come to the emergency department. states the patient does go through times of binge drinking. She reports he will drink heavily for a few months at a time. Patient reports when he drinks, he will have 15-18 beers a day during these times. Patient has not had a binging episode for approximately 3 weeks. Patient reports random vomiting without specific abdominal pains. He reports feeling bloated and has had hardly any appetite for quite some time. He has not noticed any skin rash or skin itching. He has not noticed any change in his stooling but, feels like his urination is extremely concentrated, malodorous, and is urinating quite frequently at night, but not very often through the day. Review of Systems General: Reports: 10 or more systems reviewed and unremarkable except in HPI and below PFSH ED PFSH: Medical History Chronic low back pain Degenerative disc disease, lumbar Diverticulosis DJD (degenerative joint disease), lumbar Hip pain, right History of colon polyps Hyperlipidemia Hypertension Internal hemorrhoids Intervertebral disc disorder with radiculopathy of lumbar region Motion sickness Opioid contract exists Shoulder pain Thoracogenic scoliosis Surgical History History of carpal tunnel surgery History of vasectomy Status post hemilaminotomy 05/21/2015 Dr. Jennifer Madden. Left L3-L4, L4-L5 hemilaminotomy, dissectomy/foraminotomy Family History Father Heart disease Social History Smoking and tobacco status: former smoker Second hand smoke exposure: No Alcohol intake: current Alcohol intake frequency: holidays/special occasions only Substance/Drug Use: never Caregiver/support person: Yes (spouse) Lives independently: Yes Household members: spouse Marital status: service: No Current occupational status: retired Current gender identity: Male Special danita needs: No Physical Exam Const: COMMON NORMALS: no acute distress, patient oriented x3 and alert HENMT: COMMON NORMALS: normocephalic, atraumatic, hearing grossly normal bilaterally and moist oral mucous membranes HEAD & SCALP: normocephalic and atraumatic Eye: COMMON NORMALS: Equal, round and reactive pupils present and EOMs intact bilaterally PUPIL: Yes Equal, round and reactive pupils present OTHER: Patient has yellowing of the conjunctivea bilaterally Neck/C-Spine: COMMON NORMALS: full ROM and no JVD Lymph: LYMPHATIC: no lymphadenopathy noted Resp: COMMON NORMALS: normal respiratory effort, No retractions, No use of accessory muscles and clear to auscultation bilaterally AUSCULTATION: clear to auscultation bilaterally Cardio: COMMON NORMALS: no JVD, regular rate and regular rhythm RATE: regular rate RHYTHM: regular rhythm GI: OTHER: Abdomen appears bloated and is somewhat firm but, nontender on palpation in the right upper quadrant or the epigastric region. Quiet bowel sounds throughout. : COMMON NORMALS: Yes no CVA tenderness BLADDER/KIDNEY EXAM: Yes no CVA tenderness Back/Pelvis: COMMON NORMALS: no CVA tenderness, no thoracic nor lumbar tenderness and thoraco-lumbar ROM normal Extremity: COMMON NORMALS: normal to inspection, full ROM and capillary refill normal Neuro: COMMON NORMALS: patient oriented x3 SENSORIUM/ORIENTATION: Yes alert Psych: COMMON NORMALS: mental status grossly normal, Normal thought process present, cooperative, normal affect and activity/motor behavior normal THOUGHT PROCESS: Normal thought process present Skin: COMMON NORMALS: no rashes or lesions noted and no wounds NARRATIVE SKIN EXAM: Patient has obvious yellowing of the head and face-patient is shaved bald and scalp is visible. GENERAL SKIN EXAM: no rashes or lesions noted Course Vital Signs: Vital signs: Vital Signs Temperature 98.0 F 07/16/22 16:47 Pulse Rate 61 07/17/22 00:11 Respiratory Rate 18 07/17/22 00:11 Blood Pressure 160/98 07/17/22 00:11 Pulse Oximetry 96 07/17/22 00:11 Oxygen Delivery Me thod Room Air 07/17/22 00:11 MDM - Recheck/Abnormal Lab/Rx Medical Decision Making Patient presented to the emergency department today after being requested to present due to abnormal lab work from his primary care office yesterday. Patient has multiple abnormal labs however, the most concerning are his elevated bilirubin levels. I was able to tell patient was jaundiced upon while walking into his room however, patient and did not notice any yellowing over the last several weeks. Patient's abdomen is bloated but was nontender. Patient does not have any acute nausea or vomiting but has had random vomiting in the past. Patient has had some issues with his blood pressure and, while he was here has had some lower and some much higher blood pressure readings. However, they have seemed to even out and appears stable at this time. Patient's ultrasound and CT examination are concerning for enlarged and fatty liver with noticeable ascites. He does have what could be gallbladder sludge but, no signs of any biliary dilatation. I did discuss the case with Dr. Beckford throughout the patient's evaluation. At this point, due to the elevated bilirubin levels and ascites, patient would benefit from inpatient evaluation. Dr. Beckford reached out to the hospitalist services (Dr Puentes) who agreed to visit the patient at bedside and admit here. Patient was notified of his results and our concerns including the recommendation for inpatient admission. Patient and agreed. We will defer care to hospitalist services at this time for further evaluation and intervention. Differential Diagnosis Unlikely encounter for medication refill (Elevated LFTs, elevated bilirubin, cholecystitis, pancreatic mass, pancreatitis, multiple abnormal laboratory tests) Lab Data 07/16/22 18:59 07/16/22 18:59 Radiology Impressions Abdomen Ultrasound 07/16/22 19:31 IMPRESSION: 1. Gallbladder sludge and a subcentimeter polyp with no strong sonographic evidence of cholelithiasis or cholecystitis. 2. Large and fatty liver. 3. Tzug-pc-kpjyzthb ascites. Abdomen/Pelvis CT 07/16/22 22:16 IMPRESSION: 1. Large and fatty liver with mild ascites throughout. 2. No evidence of biliary dilation. 3. No small bowel obstruction, abscess or free air. 4. Numerous chronic findings above. Tiny gallstone versus gallbladder polyp or sludge. Laboratory Results WBC 12.2 10^3/uL (4.0-10.0) H 07/16/22 18:59 RBC 4.02 10^6/uL (4.1-5.3) L 07/16/22 18:59 Hgb 13.7 g/dL (11.7-16.6) 07/16/22 18:59 Hct 39.9 % (42.0-52.0) L 07/16/22 18:59 MCV 99.3 fl (80-94) H 07/16/22 18:59 MCH 34.1 pg (28.0-34.0) H 07/16/22 18:59 MCHC 34.3 g/dL (30.0-36.0) 07/16/22 18:59 RDW 16.1 % (12.1-15.1) H 07/16/22 18:59 Plt Count 359 10^3/cmm (130-400) 07/16/22 18:59 MPV 10.7 fL (7.4-10.4) H 07/16/22 18:59 Neut % (Auto) 74.0 % 07/16/22 18:59 Lymph % (Auto) 13.1 % 07/16/22 18:59 [place] % (Auto) 8.5 % 07/16/22 18:59 Eos % (Auto) 1.7 % 07/16/22 18:59 Baso % (Auto) 0.8 % 07/16/22 18:59 Neut # (Auto) 9.00 10^3/uL (1.8-7.7) H 07/16/22 18:59 Lymph # (Auto) 1.6 10^3/uL (0.8-4.8) 07/16/22 18:59 [place] # (Auto) 1.0 10^3/uL (0.2-0.9) H 07/16/22 18:59 Eos # (Auto) 0.2 10^3/uL (0.0-0.8) 07/16/22 18:59 Baso # (Auto) 0.1 10^3/uL (0.0-0.1) 07/16/22 18:59 Nucleated RBC % (auto) 0 % 07/16/22 18:59 Nucleated RBCs # 0.0 /100WBC 07/16/22 18:59 ESR 16 mm/hr (0-10) H 07/16/22 18:59 PT 15.10 SECONDS (12.1-14.9) H 07/16/22 20:13 INR 1.15 (0.8-1.2) 07/16/22 20:13 Sodium 127 mmol/L (136-145) L 07/16/22 18:59 Potassium 4.1 mmol/L (3.5-5.1) 07/16/22 18:59 Chloride 88 mmol/L (98-107) L 07/16/22 18:59 Carbon Dioxide 31 mmol/L (22-29) H 07/16/22 18:59 Anion Gap 12.1 (5-19) 07/16/22 18:59 BUN 11 mg/dL (8-23) 07/16/22 18:59 Creatinine 0.6 mg/dL (0.7-1.2) L 07/16/22 18:59 GFR Calculation 133.6 mL/min (90-130) H 07/16/22 18:59 Glucose 97 mg/dL (65-115) 07/16/22 18:59 Calculated Osmolality 263 mOsm/kg (285-295) L 07/16/22 18:59 Calcium 8.1 mg/dL (8.5-10.5) L 07/16/22 18:59 Total Bilirubin 5.4 mg/dL (0.15-1.2) H 07/16/22 18:59 AST 139 U/L (0-40) H 07/16/22 18:59 ALT 72 U/L (0-41) H 07/16/22 18:59 Alkaline Phosphatase 369 U/L (40-130) H 07/16/22 18:59 C-Reactive Protein 73.6 mg/L (0.0-4.9) H 07/16/22 18:59 Total Protein 5.9 g/dL (6.6-8.7) L 07/16/22 18:59 Albumin 3.0 g/dL (3.5-5.2) L 07/16/22 18:59 Globulin 2.9 g/dL (1.3-4.6) 07/16/22 18:59 Lipase 12 U/L (13-60) L 07/16/22 18:59 Free T4 1.52 ng/dL (0.82-1.77) 07/16/22 18:59 Urine Color Val (Yellow) 07/16/22 19:37 Urine Appearance Clear (CLEAR) 07/16/22 19:37 Urine pH 6 (5-7) 07/16/22 19:37 Ur Specific [place] 1.015 (1.005-1.030) 07/16/22 19:37 Urine Protein Trace (Negative) 07/16/22 19:37 Urine Glucose (UA) Norm (Normal) 07/16/22 19:37 Urine Ketones 1+ (Negative) H 07/16/22 19:37 Urine Blood Neg (Negative) 07/16/22 19:37 Urine Nitrate Negative (Negative) 07/16/22 19:37 Urine Bilirubin 1+ (Negative) H 07/16/22 19:37 Urine Urobilinogen 12 mg/dL (Negative) H 07/16/22 19:37 Ur Leukocyte Esterase Trace (Negative) H 07/16/22 19:37 Urine RBC 0-4 /hpf (0-2) H 07/16/22 19:37 Urine WBC 5-10 /hpf (0-5) H 07/16/22 19:37 Ur Squamous Epith Cells 0-4 /hpf (0-5) H 07/16/22 19:37 Amorphous Sediment Not Reportable 07/16/22 19:37 Urine Bacteria Trace /hpf (NONE) 07/16/22 19:37 Urine Mucus 4+ /hpf 07/16/22 19:37 Acetaminophen < 5.0 ug/mL (10-30) L 07/16/22 23:41 Ethyl Alcohol < 10 mg/dL (0-10) 07/16/22 23:41 Hepatitis A IgM Ab Non-reactive (Nonreactive) 07/16/22 18:59 Hep Bs Antigen Non-reactive (Nonreactive) 07/16/22 18:59 Hep Bs Antibody 3.5 (11.5-1000) L 07/16/22 18:59 Hep B Core Total Ab Non-reactive (Nonreactive) 07/16/22 18:59 Hepatitis C Antibody Non-reactive (Nonreactive) 07/16/22 18:59 Discharge Plan Discharge Patient Disposition: Admitted As Inpatient Clinical Impression: Elevated LFTs, Ascites, Elevated bilirubin, Jaundice, Fatty infiltration of liver, Hepatomegaly Condition: Stable Coding Level of Care Code ED Staff Home Therapy Rn for Abe Nguyen
[2022-07-16 19:56] LABS: Basophils # 0.1 10^3/uL (0.0-0.1); Basophils % 0.8 %; Eosinophils # 0.2 10^3/uL (0.0-0.8); Eosinophils % 1.7 %; Hematocrit 39.9 % (42.0-52.0); Hemoglobin 13.7 g/dL (11.7-16.6); Lymphocytes # 1.6 10^3/uL (0.8-4.8); Lymphocytes % 13.1 %; Mean Corpuscular HGB Conc 34.3 g/dL (30.0-36.0); Mean Corpuscular Hemoglobin 34.1 pg (28.0-34.0); Mean Corpuscular Volume 99.3 fl (80-94); Mean Platelet Volume 10.7 fL (7.4-10.4); Monocytes % 8.5 %; Nucleated Red Blood Cells % 0 %; Platelet Count 359 10^3/cmm (130-400); Red Blood Count 4.02 10^6/uL (4.1-5.3); Red Cell Distribution Width 16.1 % (12.1-15.1); White Blood Count 12.2 10^3/uL (4.0-10.0)
[2022-07-16 20:05] LABS: Erythrocyte Sedimentation Rate 16 mm/hr (0-10)
[2022-07-16 20:15] LABS: Alanine Aminotransferase 72 U/L (0-41); Alkaline Phosphatase 369 U/L (40-130); Anion Gap 12.1 (5-19); Aspartate Amino Transferase 139 U/L (0-40); Blood Urea Nitrogen 11 mg/dL (8-23); C Reactive Protein 73.6 mg/L (0.0-4.9); Calcium 8.1 mg/dL (8.5-10.5); Carbon Dioxide 31 mmol/L (22-29); Chloride 88 mmol/L (98-107); Globulin 2.9 g/dL (1.3-4.6); Glomerular Filtration Rate 133.6 mL/min (90-130); Glucose 97 mg/dL (65-115); Lipase 12 U/L (13-60); Osmolality Calculated 263 mOsm/kg (285-295); Potassium 4.1 mmol/L (3.5-5.1); Sodium 127 mmol/L (136-145); Total Bilirubin 5.4 mg/dL (0.15-1.2); Total Protein 5.9 g/dL (6.6-8.7)
[2022-07-16 20:19] LABS: Add Urine Culture? No; Add Urine Microscopic? YES; Bacteria Urine TRACE /hpf; Bilirubin Urine 1+ (Negative); Blood Urine Neg (Negative); Glucose Urine UA Norm (Normal); Ketones Urine 1+ (Negative); Leukocyte Esterase Urine Trace (Negative); Mucus Urine 4+ /hpf; Nitrate Urine Negative (Negative); Protein Urine Trace (Negative); RBC Urine 0-4 /hpf (0-2); Specific Gravity, Urine 1.015 (1.005-1.030); Squamous Epithelial Cell Urine 0-4 /hpf (0-5); Urine Appearance Clear (CLEAR); Urine Color Amber (Yellow); Urobilinogen Urine 12 mg/dL (Negative); pH Urine 6 (5-7)
[2022-07-16 20:55] LABS: INR 1.15 (0.8-1.2)
[2022-07-16] MEDS: sodium chloride 0.9% 1,000 ML 999 ML IV (20:55)
[2022-07-16 21:45] LABS: Free T4 Free Thyroxine 1.52 ng/dL (0.82-1.77)
[2022-07-16 21:51] LABS: Hepatitis A Antibody IgM Non-Reactive (Nonreactive); Hepatitis B Core AB, Total Non-Reactive (Nonreactive); Hepatitis B Surface AB 3.5 (11.5-1000); Hepatitis B Surface Antigen Non-Reactive (Nonreactive); Hepatitis C Virus Antibody Non-Reactive (Nonreactive)
--- NOTE | 2022-07-16 22:16 | CTR_ITS ---
PROCEDURE INFORMATION: Exam: CT Abdomen And Pelvis With Contrast Exam date and time: 07/16/2022 10:41 PM Age: 71 years old Clinical indication: Other: Jaundice, elevated liver enzymes; Additional info: Jaundice, elevated bili, urobili, ast/alt, HX of alcohol TECHNIQUE: Imaging protocol: Computed tomography of the abdomen and pelvis with contrast. Radiation optimization: All CT scans at this facility use at least one of these dose optimization techniques: automated exposure control; mA and/or kV adjustment per patient size (includes targeted exams where dose is matched to clinical indication); or iterative reconstruction. Contrast material: OMNI 350; Contrast volume: 100 ml; Contrast route: INTRAVENOUS (IV); REPORTING DATA: Count of CT and Cardiac NM exams in prior 12 months: This patient has received 0 known CTs and 0 known cardiac nuclear medicine studies in the 12 months prior to the current study. COMPARISON: CT abdomen pelvis w con* [id number] 05/18/2019 2:20 PM RADIATION DOSE METRICS: Total DLP (mGy-cm): 1051.27 FINDINGS: Lungs: Mild areas of bilateral mid to lower lung atelectasis or scarring. Diaphragm: Very small hiatal hernia. Liver: Liver is large and fatty. Gallbladder and bile ducts: Tiny gallbladder stone or polyp on series 4, image 38 Pancreas: Atrophic pancreas with no enhancing mass. Spleen: The spleen is not enlarged. No suspicious enhancing mass is noted. Adrenal glands: Normal. No mass. Kidneys and ureters: No solid renal mass or hydronephrosis. Stomach and bowel: Moderate sigmoid diverticulosis. Appendix: No evidence of appendicitis. Intraperitoneal space: Mild free fluid. Mild diffuse mesenteric edema. Mild pelvic free fluid. Vasculature: Advanced diffuse vascular calcification noted. No AAA. Lymph nodes: No enlarged lymph nodes. Urinary bladder: Unremarkable as visualized. Reproductive: Prostate is large. Bones/joints: No acute fracture. Moderate spine DJD. Soft tissues: Partially assessed gynecomastia. CT/CT abdomen pelvis w con* [id number] IMPRESSION: 1. Large and fatty liver with mild ascites throughout. 2. No evidence of biliary dilation. 3. No small bowel obstruction, abscess or free air. 4. Numerous chronic findings above. Tiny gallstone versus gallbladder polyp or sludge.
[2022-07-16] MEDS: iohexol 350 mg/mL 500 mL Btl (per mL) IV (22:53)
[2022-07-16 23:58] LABS: Acetaminophen < 5.0 ug/mL (10-30); Alcohol Level < 10 mg/dL (0-10)
[2022-07-17] VITALS (9 sets, daily range): BP systolic 121–160; BP diastolic 84–98; PULSE 61–103; RESP 15–18; TEMP 36.5–36.9; O2SAT 93–96; BMI 31.7
--- NOTE | 2022-07-17 01:13 | PM.HP ---
Providers/Chief Complaint Primary Care Provider: SHREE Ackerman Chief Complaint: abnormal labs History of Present Illness Marcos Marino is a 71 year old male with a past medical history of hypothyroidism, hypertension, Crohn's disease, who presents to [facility] due to concerns for hyperbilirubinemia on his outpatient labs, and jaundiced appearance. Patient tells me that for the last few days he has felt tired and fatigued, no fevers, no chills. No abdominal pain, no diarrhea, he does report indigestion. No fevers, no chills, no weight loss. No night sweats. Denies any cough, no shortness of breath, no chest pain, no neck pain, headache, no blurry vision, no dysuria. Denies history of IV drug use, denies a history of hepatitis. Denies any recent stressors. He does report a history of alcoholism, binge drinking alcohol, he describes it as he will drink alcohol for 3 months and then quit for 6 months, and that 3 months he can drink up to 12 cans of beer a day, last time he did this was 3 weeks ago, no history of alcohol withdrawal, Review of Systems Const: Reports: fatigue and malaise; Denies: fever(s) or chills Eyes: Denies: change in vision Card: Denies: chest pain Resp: Denies: dyspnea GI: Denies: abdominal pain : Denies: flank pain or difficulty urinating Musc: Denies: neck pain Medications/Allergies Home Medications Medication Instructions Recorded Confirmed Last Taken Type aspirin 81 mg tablet,delayed 81 mg PO DAILY 03/27/19 07/15/22 01/15/21 History release multivitamin (Multiple Vitamins 1 tab PO QAM 03/27/19 07/15/22 01/20/21 History tablet) triamcinolone acetonide 0.1 % 1 applic topical BID #80 grams 10/01/21 07/15/22 Unknown Rx topical cream sodium chloride 1 gram tablet See Rx Instructions .Route 10/20/21 07/15/22 Unknown Rx .COMPLEX #90 tabs cyclobenzaprine 5 mg tablet 5 mg PO TID PRN muscle spasm #60 11/05/21 07/15/22 Unknown Rx tabs levothyroxine 25 mcg tablet 25 mcg PO DAILY #90 tabs 11/05/21 07/15/22 Unknown Rx atorvastatin 20 mg tablet See Rx Instructions .Route 02/08/22 07/15/22 Unknown Rx .COMPLEX #90 tabs lisinopril 40 mg tablet See Rx Instructions .Route 03/09/22 07/15/22 Unknown Rx .COMPLEX #90 tabs buspirone 10 mg tablet See Rx Instructions .Route 06/07/22 07/15/22 Unknown Rx .COMPLEX #60 tabs tramadol 50 mg tablet 50 mg PO Q8H PRN pain #42 tabs 07/13/22 07/15/22 Unknown Rx intraoperative neuromonitoring #1 ea 07/15/22 Unknown Rx amlodipine 5 mg tablet See Rx Instructions .Route 07/16/22 Unknown Rx .COMPLEX #90 tabs metoprolol tartrate 50 mg tablet See Rx Instructions .Route 07/16/22 Unknown Rx .COMPLEX #180 tabs Allergies Allergy/AdvReac Type Severity Reaction Status Date / Time No Known Allergies Allergy Verified 07/15/22 08:32 PFSH Acute PFSH: Medical History Chronic low back pain Degenerative disc disease, lumbar Diverticulosis DJD (degenerative joint disease), lumbar Hip pain, right History of colon polyps Hyperlipidemia Hypertension Internal hemorrhoids Intervertebral disc disorder with radiculopathy of lumbar region Motion sickness Opioid contract exists Shoulder pain Thoracogenic scoliosis Surgical History History of carpal tunnel surgery History of vasectomy Status post hemilaminotomy 05/21/2015 Dr. Jennifer Madden. Left L3-L4, L4-L5 hemilaminotomy, dissectomy/foraminotomy Family History Father Heart disease Social History Smoking and tobacco status: former smoker Second hand smoke exposure: No Alcohol intake: current Alcohol intake frequency: holidays/special occasions only Substance/Drug Use: never Caregiver/support person: Yes (spouse) Lives independently: Yes Household members: spouse Marital status: service: No Current occupational status: retired Current gender identity: Male Special danita needs: No Vitals/I&O/Wt Last Vital Signs Temp 98.0 F 07/16/22 16:47 Pulse 61 07/17/22 00:11 Resp 18 07/17/22 00:11 BP 160/98 07/17/22 00:11 Pulse Ox 96 07/17/22 00:11 O2 Del Method Room Air 07/17/22 00:11 Weight last 48 hrs Weight 97.976 kg Physical Exam Const: COMMON NORMALS: no acute distress and patient oriented x3 OTHER: Scleral icterus, jaundiced appearance HENMT: COMMON NORMALS: normocephalic HEAD & SCALP: normocephalic Eye: COMMON NORMALS: Equal, round and reactive pupils present and EOMs intact bilaterally Neck/C-Spine: COMMON NORMALS: no JVD Resp: COMMON NORMALS: normal respiratory effort, No retractions, No use of accessory muscles and clear to auscultation bilaterally AUSCULTATION: clear to auscultation bilaterally Cardio: COMMON NORMALS: no JVD, regular rate, regular rhythm, S1 normal heart sound present and S2 normal heart sound present RATE: regular rate RHYTHM: regular rhythm HEART SOUNDS: S1 normal heart sound present and S2 normal heart sound present GI: COMMON NORMALS: Normal to inspection, nondistended, normoactive bowel sounds present, Soft to palpation and non-tender PALPATION: Yes Soft to palpation and Yes No hepatosplenomegaly present : COMMON NORMALS: Yes no CVA tenderness Extremity: COMMON NORMALS: no calf tenderness and no pedal edema Neuro: COMMON NORMALS: patient oriented x3, CN's II-XII intact bilaterally, moves all extremities and no focal motor deficits Psych: COMMON NORMALS: mental status grossly normal Data 07/16/22 18:59 07/16/22 18:59 A&P Assessment and plan (1) Elevated bilirubin: (2) Jaundice: (3) Hyponatremia: (4) Elevated LFTs: Plan Patient with hyperbilirubinemia elevated alk phos, transaminitis -Does have history of alcoholism, certainly alcohol could be playing a role -CT scan, no intra or extrahepatic biliary dilatation, does have sludge in the gallbladder -No recent stressors -We will order GGT, fractionated bilirubin, monitor bilirubin trend -If bilirubin trend continues to increase, will do an MRCP for possible biliary stricture, or stone -We will hydrate him if it improves then certainly can discharge him home have him 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
[2022-07-17] MEDS: metoprolol tartrate 50 mg Tablet PO ×2 (02:17→09:07)
[2022-07-17] MEDS: enoxaparin 40 mg/0.4 mL Syringe SUBCUT (02:58)
[2022-07-17] MEDS: sodium chloride 0.9% 1,000 ML 75 ML IV (02:59)
[2022-07-17 03:48] LABS: Basophils # 0.1 10^3/uL (0.0-0.1); Basophils % 0.7 %; Eosinophils # 0.4 10^3/uL (0.0-0.8); Eosinophils % 2.9 %; Lymphocytes % 7.3 %; Mean Corpuscular HGB Conc 34.2 g/dL (30.0-36.0); Mean Corpuscular Volume 99.5 fl (80-94); Mean Platelet Volume 10.1 fL (7.4-10.4); Monocytes # 1.2 10^3/uL (0.2-0.9); Monocytes % 8.5 %; Neutrophils # 10.78 10^3/uL (1.8-7.7); Neutrophils % 79.1 %; Nucleated Red Blood Cells % 0 %; Platelet Count 305 10^3/cmm (130-400); Red Blood Count 3.82 10^6/uL (4.1-5.3); Red Cell Distribution Width 16.2 % (12.1-15.1); White Blood Count 13.6 10^3/uL (4.0-10.0)
[2022-07-17 04:04] LABS: Lactic Sepsis W/Reflex 1.7 mmol/L (0.5-2.2)
[2022-07-17 04:11] LABS: Alanine Aminotransferase 66 U/L (0-41); Albumin Level 2.6 g/dL (3.5-5.2); Alkaline Phosphatase 362 U/L (40-130); Anion Gap 10.4 (5-19); Aspartate Amino Transferase 140 U/L (0-40); Blood Urea Nitrogen 10 mg/dL (8-23); Calcium 7.9 mg/dL (8.5-10.5); Carbon Dioxide 29 mmol/L (22-29); Chloride 92 mmol/L (98-107); Globulin 2.2 g/dL (1.3-4.6); Glomerular Filtration Rate 111.8 mL/min (90-130); Glucose 116 mg/dL (65-115); Osmolality Calculated 266 mOsm/kg (285-295); Potassium 3.4 mmol/L (3.5-5.1); Sodium 128 mmol/L (136-145); Total Bilirubin 4.8 mg/dL (0.15-1.2); Total Protein 4.8 g/dL (6.6-8.7)
[2022-07-17 04:13] LABS: HIV 1 & 2 Antibody Non-Reactive (Non-Reactiv); HIV 1 & 2 Antigen Non-Reactive (Non-Reactiv); Procalcitonin 0.42 ng/mL (0-0.5)
[2022-07-17 04:24] LABS: Amylase 53 U/L (28-100); Chol HDL Ratio 10.24 mg/dL (1.0-5.00); Cholesterol 174 mg/dL (0-200); HDL Cholesterol 17 mg/dL (60-100); LDL Cholesterol Calculated 138 mg/dL (50-129); LDL HDL Ratio 8.12 RATIO (0.00-3.22); Total Bilirubin 4.8 mg/dL (0.15-1.2); Triglycerides 96 mg/dL (0-150)
[2022-07-17 04:48] LABS: Gamma Glutamyl Transferase 673 U/L (8-61)
[2022-07-17 06:09] LABS: Amphetamines Screen Urine Negative (Negative); Barbiturates Screen Urine Negative (Negative); Benzodiazepines Screen Urine Negative (Negative); Cocaine Screen Urine Negative (Negative); Opiate Screen Urine Negative (Negative); PCP Screen Urine Negative (Negative); THC Screen Urine Negative (Negative)
[2022-07-17] MEDS: BuSPIRONE 10 mg Tablet PO (09:06)
[2022-07-17] MEDS: aspirin 81 mg EC Tablet PO (09:07)
[2022-07-17] MEDS: amlodipine 5 mg Tablet PO (09:07)
[2022-07-17] MEDS: levothyroxine 25 mcg Tablet PO (09:07)
[2022-07-17 14:02] LABS: Alanine Aminotransferase 64 U/L (0-41); Albumin Level 2.6 g/dL (3.5-5.2); Alkaline Phosphatase 346 U/L (40-130); Anion Gap 10.7 (5-19); Aspartate Amino Transferase 129 U/L (0-40); Blood Urea Nitrogen 7 mg/dL (8-23); Calcium 7.7 mg/dL (8.5-10.5); Carbon Dioxide 29 mmol/L (22-29); Chloride 95 mmol/L (98-107); Globulin 2.9 g/dL (1.3-4.6); Glomerular Filtration Rate 133.6 mL/min (90-130); Glucose 115 mg/dL (65-115); Osmolality Calculated 271 mOsm/kg (285-295); Potassium 3.7 mmol/L (3.5-5.1); Sodium 131 mmol/L (136-145); Total Bilirubin 4.7 mg/dL (0.15-1.2); Total Protein 5.5 g/dL (6.6-8.7)
--- NOTE | 2022-07-17 14:19 | P.DS_ITS ---
Discharge Providers Date of Admission: 07/17/22 02:40 Date of Discharge: July 17, 2022 Attending Provider at Admission: Joseph Puentes MD Attending Provider at Discharge: Chidi Nunes MD Primary Care Provider: SHREE Ackerman Diagnoses at Discharge Discharge Diagnosis (1) Elevated bilirubin: Status: Acute (2) Jaundice: Status: Acute (3) Hyponatremia: Status: Acute (4) Elevated LFTs: Status: Acute Reason for Visit Reason for Visit: abnormal labs Brief History: Marcos Marino is a 71 year old male with a past medical history of hypothyroidism, hypertension, Crohn's disease, who presents to [facility] due to concerns for hyperbilirubinemia on his outpatient labs, and jaundiced appearance.? Patient tells me that for the last few days he has felt tired and fatigued, no fevers, no chills.? No abdominal pain, no diarrhea, he does report indigestion.? No fevers, no chills, no weight loss.? No night sweats.? Denies any cough, no shortness of breath, no chest pain, no neck pain, headache, no blurry vision, no dysuria.? Denies history of IV drug use, denies a history of hepatitis.? Denies any recent stressors.? He does report a history of alcoholism, binge drinking alcohol, he describes it as he will drink alcohol for 3 months and then quit for 6 months, and that 3 months he can drink up to 12 cans of beer a day, last time he did this was 3 weeks ago, no history of alcohol withdrawal, Hospital Course Hospital Course Admitted for elevated bilirubin and LFT's. pt has hx of alcohol use disorder, hypothyroidism, HTN, and crohns disease. was placed on IVF. Pt was able to tolerate diet well. no abdominal pain, blurry vision, confusion, SOB, CP, [place]. No Hx of hepatitis. LFT's slowly improved during hospital stay. Pt did not endourse any abdominal pain, nausea, emesis, diarrhea during hospital admission. states he feels fine. Initially decision was made to hold MRCP if values improved. Since they have improved pt desires to have this managed out patient. Agreed to refrain from alcohol use, fatty food intake and to f/u with PCP in 3 days for re peat blood work. 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 [facility] Physical Exam Const: COMMON NORMALS: no acute distress and patient oriented x3 OTHER: Scleral icterus, jaundiced appearance HENMT: COMMON NORMALS: normocephalic HEAD & SCALP: normocephalic Eye: COMMON NORMALS: Equal, round and reactive pupils present and EOMs intact bilaterally PUPIL: Yes Equal, round and reactive pupils present Neck/C-Spine: COMMON NORMALS: no JVD Resp: COMMON NORMALS: normal respiratory effort, No retractions, No use of accessory muscles and clear to auscultation bilaterally AUSCULTATION: clear to auscultation bilaterally Cardio: COMMON NORMALS: no JVD, regular rate, regular rhythm, S1 normal heart sound present and S2 normal heart sound present RATE: regular rate RHYTHM: regular rhythm HEART SOUNDS: S1 normal heart sound present and S2 normal heart sound present GI: COMMON NORMALS: Normal to inspection, nondistended, normoactive bowel sounds present, Soft to palpation, non-tender and No hepatosplenomegaly present PALPATION: Yes Soft to palpation and Yes No hepatosplenomegaly present : COMMON NORMALS: Yes no CVA tenderness BLADDER/KIDNEY EXAM: Yes no CVA tenderness Back/Pelvis: COMMON NORMALS: no CVA tenderness Extremity: COMMON NORMALS: no calf tenderness and no pedal edema Neuro: COMMON NORMALS: patient oriented x3, CN's II-XII intact bilaterally, moves all extremities and no focal motor deficits Psych: COMMON NORMALS: mental status grossly normal Discharge Data Studies Completed and Pending Completed Studies During Hospitalization Category Date Time Status CT abdomen pelvis w con* [id number] Stat Cat Scan 07/16/22 22:16 Completed US abdomen limited [id number] Stat Ultrasound 07/16/22 19:31 Completed Pending at discharge Category Date Time Status AMA [Mitochondrial AB Screen] Stat Lab 07/17/22 03:32 Received JAVIER Profile Rheumatology Stat Lab 07/17/22 03:32 Received Complete Blood Count w/Auto AM LABS Lab 07/18/22 04:00 Ordered Comprehensive Metabolic Panel AM LABS Lab 07/18/22 04:00 Ordered T3 Total Stat Lab 07/16/22 19:31 Ordered T4, Thyroxine, Total Stat Lab 07/16/22 19:31 Ordered Radiology Impressions Abdomen Ultrasound 07/16/22 19:31 IMPRESSION: 1. Gallbladder sludge and a subcentimeter polyp with no strong sonographic evidence of cholelithiasis or cholecystitis. 2. Large and fatty liver. 3. Mlic-hq-glawvpwe ascites. Abdomen/Pelvis CT 07/16/22 22:16 IMPRESSION: 1. Large and fatty liver with mild ascites throughout. 2. No evidence of biliary dilation. 3. No small bowel obstruction, abscess or free air. 4. Numerous chronic findings above. Tiny gallstone versus gallbladder polyp or sludge. Laboratory Results WBC 13.6 10^3/uL (4.0-10.0) H 07/17/22 03:32 RBC 3.82 10^6/uL (4.1-5.3) L 07/17/22 03:32 Hgb 13.0 g/dL (11.7-16.6) 07/17/22 03:32 Hct 38.0 % (42.0-52.0) L 07/17/22 03:32 MCV 99.5 fl (80-94) H 07/17/22 03:32 MCH 34.0 pg (28.0-34.0) 07/17/22 03:32 MCHC 34.2 g/dL (30.0-36.0) 07/17/22 03:32 RDW 16.2 % (12.1-15.1) H 07/17/22 03:32 Plt Count 305 10^3/cmm (130-400) 07/17/22 03:32 MPV 10.1 fL (7.4-10.4) 07/17/22 03:32 Neut % (Auto) 79.1 % 07/17/22 03:32 Lymph % (Auto) 7.3 % 07/17/22 03:32 [place] % (Auto) 8.5 % 07/17/22 03:32 Eos % (Auto) 2.9 % 07/17/22 03:32 Baso % (Auto) 0.7 % 07/17/22 03:32 Neut # (Auto) 10.78 10^3/uL (1.8-7.7) H 07/17/22 03:32 Lymph # (Auto) 1.0 10^3/uL (0.8-4.8) 07/17/22 03:32 [place] # (Auto) 1.2 10^3/uL (0.2-0.9) H 07/17/22 03:32 Eos # (Auto) 0.4 10^3/uL (0.0-0.8) 07/17/22 03:32 Baso # (Auto) 0.1 10^3/uL (0.0-0.1) 07/17/22 03:32 Nucleated RBC % (auto) 0 % 07/17/22 03:32 Nucleated RBCs # 0.0 /100WBC 07/17/22 03:32 ESR 16 mm/hr (0-10) H 07/16/22 18:59 PT 15.10 SECONDS (12.1-14.9) H 07/16/22 20:13 INR 1.15 (0.8-1.2) 07/16/22 20:13 Sodium 131 mmol/L (136-145) L 07/17/22 13:20 Potassium 3.7 mmol/L (3.5-5.1) 07/17/22 13:20 Chloride 95 mmol/L (98-107) L 07/17/22 13:20 Carbon Dioxide 29 mmol/L (22-29) 07/17/22 13:20 Anion Gap 10.7 (5-19) 07/17/22 13:20 BUN 7 mg/dL (8-23) L 07/17/22 13:20 Creatinine 0.6 mg/dL (0.7-1.2) L 07/17/22 13:20 GFR Calculation 133.6 mL/min (90-130) H 07/17/22 13:20 Glucose 115 mg/dL (65-115) 07/17/22 13:20 Calculated Osmolality 271 mOsm/kg (285-295) L 07/17/22 13:20 Lactic Acid 1.7 mmol/L (0.5-2.2) 07/17/22 03:32 Calcium 7.7 mg/dL (8.5-10.5) L 07/17/22 13:20 Total Bilirubin 4.7 mg/dL (0.15-1.2) H 07/17/22 13:20 Direct Bilirubin 3.80 mg/dL (0.00-0.30) H 07/17/22 03:32 Indirect Bilirubin 1.00 07/17/22 03:32 GGT 673 U/L (8-61) H 07/17/22 03:32 AST 129 U/L (0-40) H 07/17/22 13:20 ALT 64 U/L (0-41) H 07/17/22 13:20 Alkaline Phosphatase 346 U/L (40-130) H 07/17/22 13:20 C-Reactive Protein 73.6 mg/L (0.0-4.9) H 07/16/22 18:59 Total Protein 5.5 g/dL (6.6-8.7) L 07/17/22 13:20 Albumin 2.6 g/dL (3.5-5.2) L 07/17/22 13:20 Globulin 2.9 g/dL (1.3-4.6) 07/17/22 13:20 Triglycerides 96 mg/dL (0-150) 07/17/22 03:32 Cholesterol 174 mg/dL (0-200) 07/17/22 03:32 LDL Cholesterol, Calc 138 mg/dL (50-129) H 07/17/22 03:32 HDL Cholesterol 17 mg/dL (60-100) L 07/17/22 03:32 LDL/HDL Ratio 8.12 RATIO (0.00-3.22) H 07/17/22 03:32 Cholesterol/HDL Ratio 10.24 mg/dL (1.0-5.00) H 07/17/22 03:32 Amylase 53 U/L (28-100) 07/17/22 03:32 Lipase 12 U/L (13-60) L 07/16/22 18:59 Procalcitonin 0.42 ng/mL (0-0.5) 07/17/22 03:32 TSH 11.20 uIU/mL (0.27-4.20) H 07/17/22 03:32 Free T4 1.52 ng/dL (0.82-1.77) 07/16/22 18:59 Urine Color Val (Yellow) 07/16/22 19:37 Urine Appearance Clear (CLEAR) 07/16/22 19:37 Urine pH 6 (5-7) 07/16/22 19:37 Ur Specific [place] 1.015 (1.005-1.030) 07/16/22 19:37 Urine Protein Trace (Negative) 07/16/22 19:37 Urine Glucose (UA) Norm (Normal) 07/16/22 19:37 Urine Ketones 1+ (Negative) H 07/16/22 19:37 Urine Blood Neg (Negative) 07/16/22 19:37 Urine Nitrate Negative (Negative) 07/16/22 19:37 Urine Bilirubin 1+ (Negative) H 07/16/22 19:37 Urine Urobilinogen 12 mg/dL (Negative) H 07/16/22 19:37 Ur Leukocyte Esterase Trace (Negative) H 07/16/22 19:37 Urine RBC 0-4 /hpf (0-2) H 07/16/22 19:37 Urine WBC 5-10 /hpf (0-5) H 07/16/22 19:37 Ur Squamous Epith Cells 0-4 /hpf (0-5) H 07/16/22 19:37 Amorphous Sediment Not Reportable 07/16/22 19:37 Urine Bacteria Trace /hpf (NONE) 07/16/22 19:37 Urine Mucus 4+ /hpf 07/16/22 19:37 Urine Opiates Screen Negative ng/mL (Negative) 07/17/22 Unknown Acetaminophen < 5.0 ug/mL (10-30) L 07/16/22 23:41 Ur Barbiturates Screen Negative ng/mL (Negative) 07/17/22 Unknown Ur Phencyclidine Scrn Negative ng/mL (Negative) 07/17/22 Unknown Ur Amphetamines Screen Negative ng/mL (Negative) 07/17/22 Unknown U Benzodiazepines Scrn Negative ng/mL (Negative) 07/17/22 Unknown Urine Cocaine Screen Negative ng/mL (Negative) 07/17/22 Unknown U Marijuana (THC) Screen Negative ng/mL (Negative) 07/17/22 Unknown Ethyl Alcohol < 10 mg/dL (0-10) 07/16/22 23:41 Hepatitis A IgM Ab Non-reactive (Nonreactive) 07/16/22 18:59 Hep Bs Antigen Non-reactive (Nonreactive) 07/16/22 18:59 Hep Bs Antibody 3.5 (11.5-1000) L 07/16/22 18:59 Hep B Core Total Ab Non-reactive (Nonreactive) 07/16/22 18:59 Hepatitis C Antibody Non-reactive (Nonreactive) 07/16/22 18:59 HIV 1&2 Ab & HIV 1 Ag Non-reactive (Non-Reactiv) 07/17/22 03:32 HIV 1&2 Antibody Non-reactive (Non-Reactiv) 07/17/22 03:32 Vitals Last Vital Signs Temp 97.8 F 07/17/22 12:00 Pulse 76 07/17/22 12:00 Resp 15 07/17/22 12:00 BP 144/87 07/17/22 08:06 Pulse Ox 94 07/17/22 12:00 O2 Del Method Room Air 07/17/22 12:00 Discharge Plan Discharge Patient Disposition: Home Condition: Stable Prescriptions: New amlodipine 5 mg Tablet 5 mg PO DAILY Qty: 30 0RF metoprolol tartrate 50 mg Tablet 50 mg PO BID Qty: 60 0RF Continued aspirin 81 mg tablet,delayed release (DR/EC) 81 mg PO DAILY multivitamin [Multiple Vitamins] Tablet 1 tab PO QAM triamcinolone acetonide 0.1 % cream 1 applic TOPICAL BID Qty: 80 0RF cyclobenzaprine 5 mg tablet 5 mg PO TID PRN (Reason: muscle spasm) Qty: 60 1RF Rx Instructions: one tab by mouth every 8 hours as needed for muscle spasm levothyroxine 25 mcg tablet 25 mcg PO DAILY Qty: 90 0RF tramadol 50 mg tablet 50 mg PO Q8H PRN (Reason: pain) Qty: 42 0RF sodium chloride 1 gram tablet See Rx Instructions .ROUTE .COMPLEX Qty: 90 0RF Dose Instruction: Take 1 tablet by mouth once daily Rx Instructions: Take 1 tablet by mouth once daily atorvastatin 20 mg tablet See Rx Instructions .ROUTE .COMPLEX Qty: 90 1RF Dose Instruction: Take 1 tablet by mouth once daily Rx Instructions: Take 1 tablet by mouth once daily buspirone 10 mg tablet See Rx Instructions .ROUTE .COMPLEX Qty: 60 0RF Dose Instruction: Take 1 tablet by mouth twice daily Rx Instructions: Take 1 tablet by mouth twice daily Discontinued (DME) intraoperative neuromonitoring See Rx Instructions .ROUTE .MEDSUPPLY Qty: 1 0RF Rx Instructions: As directed metoprolol tartrate 50 mg tablet 25 mg PO BID Discharge Orders: Discharge Order (Routine); Ordered 07/17/22 Ordered By: Chidi Nunes Referrals: Radha Desai FNP [Primary Care Provider] - 1-3 days (f/u LFT's and bilibrubin will need [facility] hepatology) Discharge Diet: Cardiac Discharge Activity: Resume usual activity Patient Instructions: Opioid Safety Discharge Attestations Time Spent in Discharge Care*: greater than 30 min Quality Metrics Clinical Quality Measures [ No reported AMI, CVA or VTE this stay] Coding Level of Care Code 02987 Diagnoses Elevated bilirubin R17 Jaundice R17 Hyponatremia E87.1 Elevated LFTs R79.89
[2022-07-20 00:30] LABS: T4 Total 8.9 mcg/dL (4.9-10.5)
[2022-07-20 00:54] LABS: T3 Total 90 ng/dL (76-181)
[2022-07-20 14:29] LABS: ANA SCREEN, IFA NEGATIVE (NEGATIVE)
[2022-07-20 16:49] LABS: CENTROMERE B ANTIBODY <1.0 NEG AI (<1.0 NEG); JO-1 ANTIBODY <1.0 NEG AI (<1.0 NEG); RNP ANTIBODY <1.0 NEG AI (<1.0 NEG); SCL-70 ANTIBODY <1.0 NEG AI (<1.0 NEG); SJOGREN'S ANTIBODY (SS-A) <1.0 NEG AI (<1.0 NEG); SM ANTIBODY <1.0 NEG AI (<1.0 NEG); SS-B <1.0 NEG AI (<1.0 NEG)
[2022-07-20 17:10] LABS: THYROID PEROXIDASE ANTIBODIES 55 IU/mL (<9)
[2022-07-21 13:19] LABS: COMPLEMENT COMPONENT C3C 188 mg/dL (82-185); COMPLEMENT COMPONENT C4C 43 mg/dL (15-53)
[2022-07-21 14:24] LABS: COMPLEMENT, TOTAL (CH50) 33 U/mL (31-60)
[2022-07-22 14:44] LABS: DNA AB (DS) CRITHIDIA,IFA NEGATIVE (NEGATIVE)
== END 2022-07-17 15:15 | disposition home or self-care (01) ==
LOC: ER 07-17 00:22 → MEDSURG 07-17 06:36
PROVIDERS: Emergency Medicine; Admitting Provider Family Medicine; Emergency Provider Physician Assistant; PCP Nurse Practitioner Family; Visit Provider Family Medicine
DX: R18.8 Other ascites (principal); K76.0 Fatty (change of) liver, not elsewhere classified; E80.6 Other disorders of bilirubin metabolism; E87.1 Hypo-osmolality and hyponatremia; R74.01 Elevation of levels of liver transaminase levels; R79.89 Other specified abnormal findings of blood chemistry; I10 Essential (primary) hypertension; E78.5 Hyperlipidemia, unspecified; E03.9 Hypothyroidism, unspecified; Z79.899 Other long term (current) drug therapy; Z79.82 Long term (current) use of aspirin; Z87.891 Personal history of nicotine dependence
CPT/HCPCS: 36415; 74177; 76705; 80053; 80061; 80306; 80307; 81001; 82150; 82247; 82248; 82977; 83516; 83605; 83690; 84145; 84436; 84439; 84443; 84480; 85025; 85610; 85651; 86140; 86160; 86162; 86235; 86255; 86376; 86705; 86706; 86709; 86803; 87340; 87806; 94664; 96372; 99285; G0378; J1650; J7030; Q9967

== ENCOUNTER → 2022-07-19 11:20 | Outpatient (BNVA) | payer BC, SELFPAY | PROVIDERS: PCP Nurse Practitioner Family; Visit Provider Nurse Practitioner Family | DX: R17 Unspecified jaundice (principal) | CPT/HCPCS: 80053; 82247; 82248; 85025 ==

== ENCOUNTER → 2022-08-03 12:42 | Outpatient (BNVA) | payer BC, SELFPAY | PROVIDERS: PCP Nurse Practitioner Family; Visit Provider Nurse Practitioner Family | DX: R17 Unspecified jaundice (principal) | CPT/HCPCS: 80048; 80076; 85025 ==

== ENCOUNTER → 2022-09-13 11:02 | Outpatient (BNVA) | payer BC, SELFPAY | PROVIDERS: PCP Nurse Practitioner Family; Visit Provider Nurse Practitioner Family | DX: R79.89 Other specified abnormal findings of blood chemistry (principal); E03.9 Hypothyroidism, unspecified | CPT/HCPCS: 80053; 84443; 85025 ==

== ENCOUNTER → 2022-09-30 10:20 | Outpatient (BNVA) | payer BC, SELFPAY | PROVIDERS: PCP Nurse Practitioner Family; Visit Provider Nurse Practitioner Family | DX: I10 Essential (primary) hypertension (principal) | CPT/HCPCS: 80053; 80061; 81000; 85025 ==

== ENCOUNTER 2022-11-01 13:52 | Inpatient (IN) | payer BC, SELFPAY ==
[2022-10-29 11:41] VITALS: BMI 30.4
[2022-11-01] VITALS (23 sets, daily range): BP systolic 103–129; BP diastolic 66–92; PULSE 63–97; RESP 14–18; TEMP 35.8–36.1; O2SAT 98–100
--- NOTE | 2022-11-01 | XR_ITS ---
WS: [id number] EXAMINATION: XR lumbar spine 2-3V* [id number] L-SPINE : Postoperative extensive spinal fusion. REASON FOR EXAM: OR pic. T10 to the pelvis instrumented fusion COMPARISON: None available. ORDER DATE: 11/01/2022 12:00 AM FINDINGS: Surgical instrumentation for spinal fusion is demonstrated with continuous melisa and pedicle screws ext ending from the T9 level through the upper sacrum with trans sacroiliac joint screws bilaterally also present. There appears to be normal vertebral alignment. IMPRESSION: Postoperative spinal fusion change as noted above.
[2022-11-01] MEDS: sodium chloride 0.9% 1,000 ML 30 ML IV (09:35)
[2022-11-01] MEDS: methadone 10 mg Tablet PO (09:35)
[2022-11-01] MEDS: ceFAZolin 2,000 MG in sodium chloride 0.9% (plus) 50 ML 100 MG IV ×2 (10:05→17:59)
[2022-11-01] MEDS: heparin, porcine 1,000 unit/mL INJ 10 mL 6000 UNIT XX (10:40)
[2022-11-01] MEDS: vancomycin 1,000 MG SDV 1000 MG (10:40)
[2022-11-01] MEDS: lidocaine-epi 1% 20 mL INJ (10:40)
--- NOTE | 2022-11-01 11:08 | ANES.PREANE2 ---
Pre-Anesthetic Assessment Height/Weight: Height 1.73 m Weight 90.718 kg Temp Pulse Resp BP Pulse Ox O2 Del Method 97.0 F L 63 18 125/83 99 Room Air 11/01/22 09:19 11/01/22 09:19 11/01/22 09:19 11/01/22 09:19 11/01/22 09:19 11/01/22 09:19 Preop Diagnosis: DDD lumbar, lumbar stenosis with neurogenic claudication Operation Date: 11/01/22 10:20 Proposed Procedures p B13-[place] si joint fusion, L5/S1 PLIF and decompression 3-s1,T10 90590,L1 10248,L2 39605, L3 63216,L4 19780, L5/S1 04606,cage 97326, instrumentation 92719, Si joint fusion 45151, lumbo pelvis fixation 21120, Lumbar stenosis with neurogenic claudication M48.062(Not Applicable) - Julian Byers, Familial anesthetic complications: none Was Beta Rosa taken within 24 hours: N/A Was Clonidine taken within 24 hours: N/A Last intake: Intake Last Liquid Date 10/31/22 Last Liquid Time 22:30 Last Solid Date 10/31/22 Last Solid Time 20:00 Social No alcohol and No tobacco Exam alert, oriented x 3, clear to auscultation bilaterally and regular rate & rhythm Airway Submandibular: within normal limits Cervical ROM: within normal limits Mallampati: Class I Dentition: false GI Crohn's Metabolic Morbid Obesity and Thyroid Disease [facility] [place] Lower Back Pain and Osteoarthritis/DJD Neuropsych Anxiety and Depression Anesthetic Plan ASA status: 3 Anesthesia: General Other: Discussed a.line and transfusion Medications/Allergies Home Medications Medication Instructions Recorded Confirmed Last Taken Type aspirin 81 mg tablet,delayed 81 mg PO DAILY 03/27/19 10/29/22 10/24/22 History release multivitamin (Multiple Vitamins 1 tab PO QAM 03/27/19 11/01/22 10/31/22 History tablet) triamcinolone acetonide 0.1 % 1 applic topical BID #80 grams 10/01/21 11/01/22 Unknown Rx topical cream cyclobenzaprine 5 mg tablet 5 mg PO TID PRN muscle spasm #60 11/05/21 11/01/22 3 Weeks Ago Rx tabs ~10/11/22 ondansetron 4 mg disintegrating See Rx Instructions .Route 08/12/22 11/01/22 1 Week Ago Rx tablet .COMPLEX #30 tabs ~10/25/22 buspirone 10 mg tablet See Rx Instructions .Route 09/30/22 11/01/22 10/31/22 Rx .COMPLEX #180 tabs levothyroxine 50 mcg tablet 50 mcg PO DAILY #90 tabs 09/30/22 11/01/22 11/01/22 Rx metoprolol tartrate 50 mg tablet 50 mg PO BID #180 tabs 09/30/22 11/01/22 11/01/22 Rx ezetimibe 10 mg tablet (Zetia) 10 mg PO DAILY #90 tabs 10/05/22 10/29/22 10/29/22 Rx Intraoperative Neurophysiological #1 ea 10/25/22 10/25/22 Unknown Rx Testing sodium chloride 1,000 mg soluble See Rx Instructions .Route 10/25/22 11/01/22 10/31/22 Rx tablet .COMPLEX #90 tabs lisinopril 40 mg tablet 40 mg PO DAILY 10/29/22 11/01/22 10/31/22 History Allergies Allergy/AdvReac Type Severity Reaction Status Date / Time tramadol Allergy Intermediate ADR-delirious, Verified 10/29/22 11:37 shakes, fainting Current Medications Generic Name Dose Route Start Last Admin Trade Name Freq PRN Reason Stop Dose Admin Sodium Chloride 1,000 mls @ 30 mls/hr 11/01/22 09:15 11/01/22 09:35 Sodium Chloride 0.9% IV 11/02/22 09:14 30 mls/hr .Q24H TEREZA Administration PFSH Anesthesia Medical History Chronic low back pain Degenerative disc disease, lumbar Diverticulosis DJD (degenerative joint disease), lumbar Hip pain, right History of colon polyps Hyperlipidemia Hypertension Hyponatremia Internal hemorrhoids Intervertebral disc disorder with radiculopathy of lumbar region Motion sickness Opioid contract exists Shoulder pain Thoracogenic scoliosis Surgical History History of carpal tunnel surgery History of vasectomy Status post hemilaminotomy 05/21/2015 Dr. Jennifer Madden. Left L3-L4, L4-L5 hemilaminotomy, dissectomy/foraminotomy Family History Father Heart disease Denies family history of Clotting disorder Anesthesia complication Bleeding disorder Social History Smoking and tobacco status: former smoker Quit status (tobacco): has quit using tobacco Former quit date comment: more than 25 years ago Second hand smoke exposure: No Alcohol intake: former Former alcohol use details: none for 6 weeks Substance/Drug Use: current Substance/Drug use frequency: few times a month Other substance/drug use details: uses this for pain Caregiver/support person: Yes (spouse) Lives independently: Yes Household members: spouse Marital status: service: No Current occupational status: retired Current gender identity: Male Special danita needs: No Data Anesthesia Cardiac Studies: No Data to Display
[2022-11-01 12:55] LABS: Hematocrit 38.8 % (42.0-52.0); Hemoglobin 12.8 g/dL (11.7-16.6)
[2022-11-01 13:48] LABS: Hematocrit 34.2 % (42.0-52.0); Hemoglobin 11.3 g/dL (11.7-16.6)
--- NOTE | 2022-11-01 14:39 | P.OP_ITS ---
Operative Report Date of procedure: November 01, 2022 Pre-op diagnosis: Preop Diagnosis DDD lumbar, lumbar stenosis with neurogenic claudication Post-op diagnosis: same Procedure done: 1.? T10 to pelvis posterior fusion 2. T10 to S1 instrumentation 3. Lumbopelvic instrumentation 4. Right open SI joint fusion 5. Left open SI joint fusion 6. L3/4 laminectmy with partial facetectomies 7. L4/5 laminectomy with partial facetectomy 8. L5/S1 laminectomy with partial factectomy 9. computer navigation/ stereotactic of spine 10. Bone marrow aspirate right iiac crest 11. Use of autograft 12. use of allograft Surgeon: Julian Byers Senior Training Specialist: Jose Alfredo Escobedo Senior Training Specialist: The machine operator assistant, Jose Alfredo Escobedo, PAC was needed for his expertise under the microscope. He was important and necessary throughout the procedure to complete in a safe and timely manner. He assisted with patient positioning prepping and draping tissue retraction suctioning of the operative field protection of the dural sac and tissue closure Estimated blood loss (mL): 2,500 Procedure: 1.? T10 to pelvis posterior fusion 2. T10 to S1 instrumentation 3. Lumbopelvic instrumentation 4. Right open SI joint fusion 5. Left open SI joint fusion 6. L3/4 laminectmy with partial facetectomies 7. L4/5 laminectomy with partial facetectomy 8. L5/S1 laminectomy with partial factectomy 9. computer navigation/ stereotactic of spine 10. Bone marrow aspirate right iiac crest 11. Use of autograft 12. use of allograft Patient is brought to the operative suite.? After undergoing anesthesia, the patient had neuro monitoring attached.? Patient was then placed in the prone position on the Cullen table.? All areas of impingement were well-padded.? Patient was then prepped and draped in the normal sterile fashion.? ?Skin incision was then made over the [id number].? Subperiosteal dissection was made out to the transverse processes of T10, T11, T12, L1, L2, L3 and L4 and L5 and out to the sacral ala's and dissecting out the sacroiliac joints.? The [employer] bone marrow aspirate kit was used to aspirate bone marrow aspirate from the right iliac crest.? This was done by using the sharp probe to open up the bone.? Aspiration was performed and then the blunt probe was then used to dissect down to through the bone tunnel.? An aspirating well drawn back a millimeter approximately 20 cc of bone marrow aspirate was used.? And mixed with the allograft and autograft bone that will be used. Extension was brought to placing the pins for the computer navigation fiducial.? This was done by placing 2 iliac crest pins in the right side.? These pins were later removed within the case.? Skin incision made in 2 pins were placed fiducial was attached to these 2 pins.? And then the C-arm was brought in and spun around the patient and the information from the C-arm was then loaded into the computer through the fiducials.? And later used to place the pedicle screws. The technique for placing the pedicle screws was to use a drill followed by the gearshift probe linked to computer navigation.? Followed by the ball probe to feel the superior inferior medial lateral dukes of the pedicles.? Then placement of the screws linked to computer navigation.? Was done at each pedicle.? Screws were placed at T10 bilaterally, T11 bilaterally, T12 bilaterally, L1 bilaterally, L2 bilaterally, L 3 bilaterally and L4? bilaterally, L5 bilaterally and S1 bilaterally. Extension was brought to placing the iliac screws.? This was done by using the gearshift linked to computer navigation gearshift was placed just distal to the S1 foramen and lateral.? Was driven through the sacral ala across the iliosacral joint and into the iliac crest.? This was done bilaterally.? And then a 80 mm 9.5 mm iliac screw was placed on the left and a 80 mm 9.5 mm iliac screw was placed on the right. Next attention was brought to doing the open SI joint fusions on both the right and the left side.? This was done by identifying the SI joint scraping out the SI joint and packing it with bone graft as well as passing a wire across to the iliac joint that has bone graft capabilities the wire was then drilled and bone graft was packed into this hole and then the screw which is in sacroiliac screw was brought across the joint fusing the joint.? This was done on both the right and the left sides. Bone graft was placed into the SI joint prior to placing the screw. Next attention was brought to performing the laminectomy of L3.? This was done using the high-speed bur Kerrisons and curettes.? Once the lamina was removed and then attention was brought to performing a Rightpartial facetectomy .? This was done again using the high-speed bur curettes and Kerrisons.? The ligamentum flavum was taken down bilaterally from L3 to L4.? ? ? The L4 nerve was decompressed as it passed around the L4 pedicle.?? The L3 nerve was identified as it traversed through the L3/4 foramen.? ? Next attention was brought to performing the laminectomy ofL4.? This was done using the high-speed bur Kerrisons and curettes.? Once the lamina was removed and then attention was brought to performing a Rightpartial facetectomy .? This was done again using the high-speed bur curettes and Kerrisons.? The ligamentum flavum was taken down bilaterally from L4 to L5.? ? ? The L5 nerve was decompressed as it passed around the L5 pedicle.?? The L4 nerve was identified as it traversed through the L4/5 foramen.? ? Next attention was brought to performing the laminectomy ofL5.? This was done using the high-speed bur Kerrisons and curettes.? Once the lamina was removed a nd then attention was brought to performing a Rightpartial facetectomy .? This was done again using the high-speed bur curettes and Kerrisons.? The ligamentum flavum was taken down bilaterally from L5 to S1.? ? ? The S1 nerve was decompressed as it passed around the S1 pedicle.?? The L5 nerve was identified as it traversed through the L5/S1 foramen.? ? Attention was then brought to attaching the rods to the screws placed in the T10 bilaterally, T11 bilaterally, T12 bilaterally, L1 bilaterally, L2 bilaterally, L3 bilaterally, L4 bilaterally L5 bilaterally S1 bilaterally.? The melisa was also connected to the screws providing the lumbopelvic aspect of the lumbopelvic fixation.? Caps were torqued into position. Locking the construct in place. Wound was copiously irrigated and then attention was brought to decorticating the facets and transverse processes laterally.? Bone that was taken down from the lamina was used along with osteoamp fibers and sponges were packed into the lateral gutters along the facet joints.? This was done bilaterally. Wound was then closed in a layered fashion starting with the thoracolumbar fascia.? 0-vicryl was used the sub cutaneous tissue was closed with 2-0 vicryl and skin with 4-0 monocryl.? Glue was then used to seal the skin and a steril dressing was applied.? Patient was then placed in the supine position. The endotracheal tube was removed and patient was transferred to the PACU in stable condition.
--- NOTE | 2022-11-01 15:43 | PC.NURSE ---
To room at 1512, on vent, not following commands, PERRL, Levo being pushed by MECHANICAL INTEGRITY ENGINEER. No blood to exterior of dressing.
--- NOTE | 2022-11-01 16:05 | PC.NURSE ---
Norepineprine drip quickly titrated to 16 mcg/min. Patient was on push dose pressors from [facility] and transitioned to drip on in the ICU. Blood pressure did not stabilized until uptitration to 16 mcg/min. Dr. Rivas and Dr. Byers notified.
[2022-11-01 16:44] LABS: ABG PCO2 47.4 mmHg (35-45); ABG PH Result 7.21 (7.35-7.45); Alveolar-Arterial Oxygen Gradi 63.9 mmHg (5-10); Base Excess ABG -8.7 mmol/L (-2.0-2.0); Blood Gas Operator Identificat GD; Blood Gas Sample Site Not specified; Blood Gas Sample Type Arterial; Blood Gas Tidal Volume 0.45; Carboxyhemoglobin 1.2 %THgb (0.4-20.1); HCO3 ABG 18.8 mmol/L (22-26); HGB O2 Sat 98.2 % (95-100); Ionized Calcium Level - ABG 1.2 mmol/L (1.1-1.4); Methemoglobin 0.5 % (0.4-1.5); Oxygen Device VENT; Oxygen Saturation ABG 99.8; Total Hemoglobin 9.5 g/dL (14-18)
--- NOTE | 2022-11-01 17:12 | PC.NURSE ---
No belongings brought from surgery.
[2022-11-01] MEDS: dexmedetomidine 400 MCG in sodium chloride 0.9% (100 ml) 100 ML IV (17:38)
--- NOTE | 2022-11-01 17:43 | P.CONIM_ITS ---
Providers/Reason For Consult Consulting Physician/Specialty*: Aggie Rivas MD/ Hospitalist Reason for Consult*: Hypotension post op Requesting Physician: Julian Byers DO Attending Physician: Julian Byers DO Primary Care Provider: SHREE Ackerman History of Present Illness History of Present Illness Marcos Marino is a 71 year old male with a past medical history of hypothyroidism, hypertension, Crohn's disease, who underwent elective T10-L5 S1 laminectomy with partial facetectomy and posterior fusion earlier today with Dr. Byers. He had an estimated blood loss of 2500 cc in the operating room. He developed hypotension and required several pushes of phenylephrine in the operating room. Upon arrival in the ICU he was noted to be hypotensive, started on norepinephrine and subsequently required a second pressor addition with vasopressin. Stat H&H was ordered which showed a hemoglobin drop to 9 from 12 preoperatively. He was left intubated postoperatively due to poor GCS and mentation. ABG Showed pH of 7.21/CO2 47.4/PO2 161/bicarb of 18.8 on FiO2 of 100% and PEEP of 5. Since arrival in the ICU patient has been more alert and awake, he is able to follow all commands. Comfortable on the ventilator currently. O2 requirements have been weaned down, repeat gas is due at 7 PM today. He has received 5 L of IV crystalloids thus far. Review of Systems General: Reports: 10 or more systems reviewed and unremarkable except in HPI and below Const: Denies: fever(s), chills or body aches Eyes: Denies: change in vision, blurry vision or photophobia ENMT: Reports: hoarseness; Denies: throat pain, enlarged tonsils, odynophagia or nasal congestion Card: Denies: chest pain, palpitations, irregular heart rhythm, edema, swelling of feet/ankles, lightheadedness, pre-syncope, dyspnea on exertion or orthopnea Resp: Denies: dyspnea, productive cough, non-productive cough, wheezing, stridor, pain on inspiration, change in phlegm color, hemoptysis or chest congestion GI: Denies: abdominal pain, nausea, vomiting, hematemesis, coffee ground geo sis, dysphagia, heartburn, diarrhea, constipation, GI cramping, change in stool character, hematochezia or melena : Denies: flank pain, dysuria, urinary frequency, urinary urgency, urinary hesitancy or hematuria Musc: Denies: neck pain, back pain, extremity pain, joint swelling, joint warmth or deformity Neuro: Denies: headache(s), numbness in extremities, weakness in extremities, sensory changes, difficulty walking, frequent falls, dizziness, vertigo, behavioral changes, Slurred speech present or seizure-like activity Psych: Denies: anxiety, depression, suicidal ideation or homicidal ideation Endo: Denies: polyuria, polydipsia, tired all the time, cold intolerance or hot flashes Scott/Lymph: Denies: easy bruising or easy bleeding Medications/Allergies Home Medications Medication Instructions Recorded Confirmed Last Taken Type aspirin 81 mg tablet,delayed 81 mg PO DAILY 03/27/19 10/29/22 10/24/22 History release multivitamin (Multiple Vitamins 1 tab PO QAM 03/27/19 11/01/22 10/31/22 History tablet) triamcinolone acetonide 0.1 % 1 applic topical BID #80 grams 10/01/21 11/01/22 Unknown Rx topical cream cyclobenzaprine 5 mg tablet 5 mg PO TID PRN muscle spasm #60 11/05/21 11/01/22 3 Weeks Ago Rx tabs ~10/11/22 ondansetron 4 mg disintegrating See Rx Instructions .Route 08/12/22 11/01/22 1 Week Ago Rx tablet .COMPLEX #30 tabs ~10/25/22 buspirone 10 mg tablet See Rx Instructions .Route 09/30/22 11/01/22 10/31/22 Rx .COMPLEX #180 tabs levothyroxine 50 mcg tablet 50 mcg PO DAILY #90 tabs 09/30/22 11/01/22 11/01/22 Rx metoprolol tartrate 50 mg tablet 50 mg PO BID #180 tabs 09/30/22 11/01/22 11/01/22 Rx ezetimibe 10 mg tablet (Zetia) 10 mg PO DAILY #90 tabs 10/05/22 10/29/22 10/29/22 Rx Intraoperative Neurophysiological #1 ea 10/25/22 10/25/22 Unknown Rx Testing sodium chloride 1,000 mg soluble See Rx Instructions .Route 10/25/22 11/01/22 10/31/22 Rx tablet .COMPLEX #90 tabs lisinopril 40 mg tablet 40 mg PO DAILY 10/29/22 11/01/22 10/31/22 History Allergies Allergy/AdvReac Type Severity Reaction Status Date / Time tramadol Allergy Intermediate ADR-delirious, Verified 10/29/22 11:37 shakes, fainting Current Medications Generic Name Dose Route Start Last Admin Trade Name Arnulfoq PRN Reason Stop Dose Admin Norepinephrine Bitartrate 4 mg 254 mls @ 0 mls/hr 11/01/22 15:45 11/01/22 17:38 / Dextrose IV 18 mcg/min .Q0M TEREZA 68.58 mls/hr Titration Protocol Per Protocol Vasopressin 100 unit/ Sodium 100 mls @ 0 mls/hr 11/01/22 16:00 11/01/22 17:38 Chloride IV 0.06 unit/min .Q0M TEREZA 3.6 mls/hr Titration Protocol Per Protocol Dexmedetomidine HCl 400 mcg/ 104 mls @ 0 mls/hr 11/01/22 17:15 11/01/22 17:38 Sodium Chloride IV 0.1 mcg/kg/hr .Q0M TEREZA 2.36 mls/hr Administration Protocol Per Protocol PFSH Acute PFSH: Medical History Chronic low back pain Degenerative disc disease, lumbar Diverticulosis DJD (degenerative joint disease), lumbar Hip pain, right History of colon polyps Hyperlipidemia Hypertension Hyponatremia Internal hemorrhoids Intervertebral disc disorder with radiculopathy of lumbar region Motion sickness Opioid contract exists Shoulder pain Thoracogenic scoliosis Surgical History History of carpal tunnel surgery History of vasectomy Status post hemilaminotomy 05/21/2015 Dr. Jennifer Madden. Left L3-L4, L4-L5 hemilaminotomy, dissectomy/foraminotomy Family History Father Heart disease Denies family history of Clotting disorder Anesthesia complication Bleeding disorder Social History Smoking and tobacco status: former smoker Quit status (tobacco): has quit using tobacco Former quit date comment: more than 25 years ago Second hand smoke exposure: No Alcohol intake: former Former alcohol use details: none for 6 weeks Substance/Drug Use: current Substance/Drug use frequency: few times a month Other substance/drug use details: uses this for pain Caregiver/support person: Yes (spouse) Lives independently: Yes Household members: spouse Marital status: service: No Current occupational status: retired Current gender identity: Male Special danita needs: No Vitals/I&O/Wt Last Vital Signs Temp 97.0 F L 11/01/22 09:19 Pulse 63 11/01/22 09:19 Resp 16 11/01/22 17:02 BP 125/83 11/01/22 09:19 Pulse Ox 98 11/01/22 17:02 O2 Del Method Room Air 11/01/22 09:19 FiO2 60 11/01/22 17:02 11/01/22 11/01/22 11/01/22 06:59 14:59 22:59 Intake Total 50 / 50 99.548 / 149.548 Output Total 300 / 300 Balance 50 / 50 -200.452 / -150.452 Physical Exam Narrative: General: No acute distress, currently vented HEENT: PERRLA, pupils bilaterally equal and reactive, pallors not present Chest: Normal vesicular breath sounds, no added sounds, equal good air entry bilaterally CVS: S1-S2 regular, no murmurs, no tachycardia, no gallops, no rubs Abdomen: Soft, nontender, no organomegaly, bowel sounds present Neuro: following commands when awake Urinary Catheter Management: Fuller: Cath Placed During This Visit: yes Urinary Catheter Date of Insertion: 11/01/22 Urinary Catheter Time of Insertion: 10:30 Data 11/01/22 16:30 A&P Assessment and plan (1) Status post lumbar laminectomy: (2) Hypotension: (3) Shock circulatory: (4) Acute blood loss anemia: (5) Metabolic acidosis: Plan 71-year-old male status post elective surgery today as described above with postop course complicated by acute blood loss anemia and circulatory shock. Currently patient is noted to be hypotensive for which he is on pressor support with Levophed and vasopressin. ABG is suggestive of acute metabolic acidosis, pH at 18.8 on ABG. Awaiting CMP at this time. Check stat lactate H&H check postoperatively at 9, hemoglobin dropped from 12-9, which may be a reason for his current circulatory shock. Recheck hemoglobin in 2 hours and then check every 4 hours. Patient also has a past medical history of known orthostatic hypotension and per his blood pressure tends to fluctuate however has recently been normotensive in the past few weeks leading up to surgery. Wean down FiO2 as patient is starting to wake up. It appears she was left intubated postoperatively due to poor GCS. At this time patient is awake and alert following commands. He is on 100% FiO2, PO2 on ABG at 161. FiO2 has been weaned down to 40%. We will repeat blood gas in 2 hours after making this change and attempt to extubate if possible Tonight. precedex infusion as goal to possibly extubate, if does not tolerate, then proceed with fentanyl and versed infusion Stress dose steroids with hyrocortisone 100mg iv q6h No rahses or hives to suggest anaphylactic reaction Unlikely sepsis, he is afebrile, received periop ppx appropriately stop toradol given blood loss hold metoprolol further orders dependent on clinical progress Consult Attestations Medical Necessity Statement: per admitting note Critical Care Time: The high probability of a clinically significant, sudden or life threatening deterioration of the patient's [cardiovascular, respiratory, circulatory] system(s) required my full and direct attention, intervention and personal m anagement. The critical care time is as shown. This time is in addition to time spent performing any reported procedures but includes the following: [x] Data and vital sign review and interpretation [x] Patient assessment, examination and intervention [x] Documentation [x] Medication orders and management Critical Care Time (min): 45 Coding Level of Care Code Acute Code for Chg Fwd Diagnoses Status post lumbar laminectomy Z98.890 Hypotension I95.9 Shock circulatory R57.9 Acute blood loss anemia D62 Metabolic acidosis E87.20
--- NOTE | 2022-11-01 17:49 | ANE.PACU2 ---
Inpatient post-anesthesia follow up: Airway intact: Yes (ETT) Vital signs: Temperature 97.0 F Pulse Rate 63 Respiratory Rate 16 Blood Pressure 125/83 Pulse Oximetry 98 Oxygen Delivery Me thod Room Air Oxygen Flow Rate Fraction of Inspir ed Oxygen 60 Hydration adequate: No Nausea and vomiting: No Pain level: 1 Mental status: Altered Additional Comments: Patient slow to wake up, hypotensive (related to volume/blood loss)--left intubated to ICU. Patient requiring pressors to maintain BP, H/H slowly falling.
[2022-11-01] MEDS: sodium bicarbonate 50 MEQ in sodium chloride 0.45% 1,000 ML 100 MEQ IV (18:07)
[2022-11-01] MEDS: hydrocortisone 100 mg/2 mL SDV IVP (18:28)
[2022-11-01 18:29] LABS: ABG PCO2 41.2 mmHg (35-45); ABG PH Result 7.23 (7.35-7.45); Arterial Blood Gas Hematocrit 28.6 % (42-52); Base Excess ABG -9.9 mmol/L (-2.0-2.0); Blood Gas Operator Identificat GD; Blood Gas Sample Site Not specified; Blood Gas Sample Type Arterial; Blood Gas Tidal Volume 0.45; HCO3 ABG 17.1 mmol/L (22-26); Oxygen Device VENT
[2022-11-01 18:39] LABS: Basophils % 0.2 %; Eosinophils % 0.1 %; Hematocrit 28.8 % (42.0-52.0); Lymphocytes # 1.2 10^3/uL (0.8-4.8); Lymphocytes % 7.2 %; Mean Corpuscular HGB Conc 31.3 g/dL (30.0-36.0); Mean Corpuscular Hemoglobin 29.9 pg (28.0-34.0); Mean Corpuscular Volume 95.7 fl (80-94); Mean Platelet Volume 10.7 fL (7.4-10.4); Monocytes # 0.7 10^3/uL (0.2-0.9); Monocytes % 3.8 %; Neutrophils # 14.91 10^3/uL (1.8-7.7); Neutrophils % 87.8 %; Nucleated Red Blood Cells % 0 %; Platelet Count 229 10^3/cmm (130-400); Red Blood Count 3.01 10^6/uL (4.1-5.3); Red Cell Distribution Width 13.4 % (12.1-15.1)
[2022-11-01 19:04] LABS: Alanine Aminotransferase 26 U/L (0-41); Alkaline Phosphatase 84 U/L (40-130); Anion Gap 16.8 (5-19); Aspartate Amino Transferase 40 U/L (0-40); Blood Urea Nitrogen 15 mg/dL (8-23); Calcium 7.7 mg/dL (8.5-10.5); Carbon Dioxide 16 mmol/L (22-29); Chloride 109 mmol/L (98-107); Globulin 1.8 g/dL (1.3-4.6); Glomerular Filtration Rate 66.4 mL/min (90-130); Glucose 213 mg/dL (65-115); Osmolality Calculated 291 mOsm/kg (285-295); Potassium 4.8 mmol/L (3.5-5.1); Sodium 137 mmol/L (136-145); Total Bilirubin 0.4 mg/dL (0.15-1.2); Total Protein 4.8 g/dL (6.6-8.7)
--- NOTE | 2022-11-01 19:11 | PC.NURSE ---
Patient requiring 1:1 RN care when coming back from OR. Patient's blood pressure dropping to 50/40s per Art line with good wave form. Patient requiring Levo and Vaso drip directly from OR. Patient initially wound not wake up to pain. Patient now following all commands and moving all extremities. Patient does have horizontal nystagmus (Dr. Rivas notifed).
[2022-11-01] MEDS: norepinephrine 8 MG in dextrose 5 % 500 ML 68.58 MG IV (19:39)
--- NOTE | 2022-11-01 21:25 | XRR_ITS ---
PROCEDURE INFORMATION: Exam: XR Chest Exam date and time: 11/01/2022 9:48 PM Age: 71 years old Clinical indication: Device placement; Picc; Additional info: Picc line verification TECHNIQUE: Imaging protocol: Radiologic exam of the chest. Views: 1 view. COMPARISON: CT abdomen pelvis w con* [id number] 07/16/2022 10:41 PM FINDINGS: Tubes, catheters and devices: There is an endotracheal tube present, with distal tip 3 cm above the mehrdad. Right-sided PICC line with distal tip overlying SVC. Lungs: Low lung volumes are demonstrated. This causes crowding of the lung markings. Bibasilar atelectasis noted. Upper lungs appear clear. Pleural spaces: No pleural effusion. No pneumothorax. Heart/Mediastinum: No cardiomegaly. Bones/joints: Unremarkable. XR/XR chest 1V portable [id number] IMPRESSION: 1. There is an endotracheal tube present, with distal tip 3 cm above the mehrdad. 2. Right-sided PICC line with distal tip overlying SVC. 3. Low lung volumes are demonstrated. This causes crowding of the lung markings. 4. Bibasilar atelectasis noted. Upper lungs appear clear.
--- NOTE | 2022-11-01 21:49 | PC.NURSE ---
Consulted by house charge for picc placement. Consent obtained by myself and the patient. All risk and benefits discussed. Risk included dvt and infection. RUE scanned with US and brachial vein was the best option. Vein was straight, 4 mm, and free of visible clot. Pt draped in usual sterile fashion. Using real time US lidocaine injected, vein accessed, and picc floated position. Chest xray obtained and waiting confirmation. NO bleeding no hematoma. EBL less then 5 ml. Blood drawn.. Pt arm circumfernce is 32 cm at 10 cm above the ac fossa.
[2022-11-01 22:02] LABS: Lactate (Lactic Acid level) 6.3 mmol/L (0.5-2.2)
[2022-11-02] VITALS (51 sets, daily range): BP systolic 79–137; BP diastolic 54–82; PULSE 56–102; RESP 16–66; TEMP 34.4–36.6; O2SAT 84–100
[2022-11-02] MEDS: hydrocortisone 100 mg/2 mL SDV IVP ×4 (00:21→17:53)
[2022-11-02 00:24] LABS: Hematocrit 28.5 % (42.0-52.0); Hemoglobin 9.2 g/dL (11.7-16.6)
[2022-11-02] MEDS: ondansetron 2 mg/ML SDV 2 mL 4 MG IVP (00:55)
[2022-11-02] MEDS: dexmedetomidine 400 MCG in sodium chloride 0.9% (100 ml) 100 ML 16.51 MCG IV (01:32)
[2022-11-02] MEDS: ceFAZolin 2,000 MG in sodium chloride 0.9% (plus) 50 ML 100 MG IV (01:57)
[2022-11-02] MEDS: norepinephrine 8 MG in dextrose 5 % 500 ML 53.34 MG IV (04:22)
[2022-11-02 05:02] LABS: Basophils # 0.1 10^3/uL (0.0-0.1); Basophils % 0.2 %; Hematocrit 27.5 % (42.0-52.0); Hemoglobin 8.7 g/dL (11.7-16.6); Lymphocytes # 1.7 10^3/uL (0.8-4.8); Lymphocytes % 7.3 %; Mean Corpuscular HGB Conc 31.6 g/dL (30.0-36.0); Mean Corpuscular Hemoglobin 30.1 pg (28.0-34.0); Mean Corpuscular Volume 95.2 fl (80-94); Mean Platelet Volume 11.1 fL (7.4-10.4); Monocytes # 1.3 10^3/uL (0.2-0.9); Monocytes % 5.6 %; Neutrophils # 19.88 10^3/uL (1.8-7.7); Neutrophils % 86.1 %; Nucleated Red Blood Cells % 0 %; Platelet Count 233 10^3/cmm (130-400); Red Blood Count 2.89 10^6/uL (4.1-5.3); Red Cell Distribution Width 13.1 % (12.1-15.1); White Blood Count 23.1 10^3/uL (4.0-10.0)
[2022-11-02 05:27] LABS: Alanine Aminotransferase 34 U/L (0-41); Albumin Level 3.3 g/dL (3.5-5.2); Alkaline Phosphatase 81 U/L (40-130); Anion Gap 20.5 (5-19); Aspartate Amino Transferase 62 U/L (0-40); Blood Urea Nitrogen 20 mg/dL (8-23); Calcium 7.8 mg/dL (8.5-10.5); Carbon Dioxide 16 mmol/L (22-29); Chloride 103 mmol/L (98-107); Globulin 1.9 g/dL (1.3-4.6); Glomerular Filtration Rate 50.2 mL/min (90-130); Glucose 258 mg/dL (65-115); Osmolality Calculated 289 mOsm/kg (285-295); Potassium 5.5 mmol/L (3.5-5.1); Sodium 134 mmol/L (136-145); Total Bilirubin 0.3 mg/dL (0.15-1.2); Total Protein 5.2 g/dL (6.6-8.7)
[2022-11-02 05:36] LABS: Lactate (Lactic Acid level) 8.1 mmol/L (0.5-2.2)
[2022-11-02 07:26] LABS: ABG PCO2 36.7 mmHg (35-45); ABG PH Result 7.19 (7.35-7.45); Base Excess ABG -13.2 mmol/L (-2.0-2.0); Blood Gas Operator Identificat CAK; Blood Gas Sample Site ALINE; Blood Gas Sample Type Arterial; Blood Gas Tidal Volume 0.45; Oxygen Device VENT
--- NOTE | 2022-11-02 07:33 | P.PN_ITS ---
Subjective Subjective: POD 1 Patient remains intubated. Follows commands. Family is present. Vitals/I&O/Wt Last Vital Signs Temp 97.6 F 11/02/22 05:00 Pulse 56 L 11/02/22 06:00 Resp 16 11/02/22 06:00 BP 91/60 11/02/22 06:00 Pulse Ox 99 11/02/22 06:00 O2 Del Method Mechanical Ventilation 11/02/22 06:00 FiO2 50 11/02/22 06:00 11/01/22 11/02/22 11/02/22 22:59 06:59 14:59 Intake Total 326.973 / 376.973 857.498 / 1234.471 Output Total 575 / 575 300 / 875 Balance -248.027 / -198.027 557.498 / 359.471 Physical Exam Narrative: Patient presents alert and oriented x3 with a good general appearance normal mood and affect. Normal coordination normal stability. Mild tenderness around the incisional site with the incision appears clean and dry with Hemovac present . no signs of erythema or drainage. No signs of infection. Patient denies any fevers or chills. 5/5 motor strength both lower extremities with negative straight leg raise bilaterally. Calves are supple no medial thigh tenderness. Pulses are 2+ at the dorsalis pedis and posterior tibial region. Good capillary refill throughout normal sensation light touch both lower extremities. Urinary Catheter Management: Fuller: Cath Placed During This Visit: yes Reason for Continuing Indwelling Catheter: Accurate Measurement of Urinary Output in Critically Ill Patients Urinary Catheter Date of Insertion: 11/01/22 Urinary Catheter Time of Insertion: 10:30 Data 11/02/22 04:38 11/02/22 04:38 Micro: Microbiology 11/02/22 00:00 Blood Culture - Preliminary Blood SPECIMEN COLLECTED 11/02/22 00:00 Blood Culture - Preliminary Blood SPECIMEN COLLECTED A&P Assessment and plan (1) Acute blood loss anemia: Discussed with the family the surgical blood loss. Patient remains hypotensive. We will defer to the medical team for medical management. Patient had a fair amount of blood loss from the surgery. Increased risk of bleeding therefore will continue SCDs for mechanical DVT prophylaxis. Hemovac drain was taken to gravity to slow the blood loss. Abdominal binder for compression. (2) S/P spinal fusion: Attestations Medical Necessity Statement*: Defer to medical team Coding Level of Care Code Acute Code for Chg Fwd Diagnoses Acute blood loss anemia D62 S/P spinal fusion Z98.1
[2022-11-02] MEDS: dexmedetomidine 400 MCG in sodium chloride 0.9% (100 ml) 100 ML 21.23 MCG IV (07:39)
[2022-11-02] MEDS: vancomycin 1,500 MG/300 ML PIGGYBACK 200 MG IV (08:17)
[2022-11-02 08:32] LABS: Anion Gap 19.1 (5-19); Blood Urea Nitrogen 21 mg/dL (8-23); Calcium 7.2 mg/dL (8.5-10.5); Carbon Dioxide 15 mmol/L (22-29); Chloride 100 mmol/L (98-107); Glomerular Filtration Rate 50.2 mL/min (90-130); Glucose 425 mg/dL (65-115); Osmolality Calculated 289 mOsm/kg (285-295); Potassium 5.1 mmol/L (3.5-5.1); Sodium 129 mmol/L (136-145)
[2022-11-02] MEDS: sodium bicarbonate 150 MEQ in dextrose 5% 1,000 ML 100 MEQ IV ×2 (08:38→21:06)
[2022-11-02 08:57] LABS: Lactic Sepsis W/Reflex 6.8 mmol/L (0.5-2.2)
--- NOTE | 2022-11-02 09:14 | XR_ITS ---
WS: [id number] CHEST XRAY TECHNIQUE: Portable chest. CLINICAL INFORMATION: evaluate for pneumonia COMPARISON: 11/01/2022 FINDINGS: Endotracheal tube with tip above the mehrdad. RIGHT PICC line with tip in the SVC. Shallow i nspiration. Distended stomach in the LEFT upper quadrant. Slight lucency under the RIGHT hemidiaphrag m may represent interposed bowel. Free air less likely. Heart: Cardiomegaly. Lungs: Slight bibasilar atelectasis. Lungs are otherwise well aerated. Mild pulmonary vascular conges tion. Bones: Partially visualized postoperative changes lower thoracic and lumbar spine. IMPRESSION: 1. Endotracheal tube with tip above the mehrdad. 2. Air distended stomach in the LEFT upper quadrant. 3. Slight lucency under the RIGHT hemidiaphragm may represent interposed bowel. Free air less likely . This can be further evaluated with CT abdomen/pelvis if indicated. 4. RIGHT PICC line with tip in the SVC. 5. Recent postoperative changes thoracolumbar fusion. Discussed with Aggie Rivas MD at 11/02/2022 10:22 AM.
[2022-11-02 09:39] LABS: Glucose Point of Care 248 mg/dL (70-110)
[2022-11-02] MEDS: insulin lispro 100 unit/1 mL SUBCUT ×5 (09:52→22:20)
[2022-11-02] MEDS: piperacillin-tazobactam 3.375 GM in sodium chloride 0.9% (plus) 50 ML IV ×2 (09:52→17:52)
[2022-11-02 10:00] LABS: Reflex Lactate Order REFLEX LACTIC ORDERD
--- NOTE | 2022-11-02 10:43 | CT_ITS ---
WS: [id number] CT ABDOMEN PELVIS TECHNIQUE: Noncontrast CT of the abdomen and pelvis with coronal and sagittal reformatted images. CLINICAL INFORMATION: evaluate for free air/perfortaion COMPARISON: None. DLP: 1091.[address] scans at [facility] use at least one of these dose optimization techniques: automated e xposure control; mA and/or kV adjustment per patient size (includes targeted exams where dose is matc hed to clinical indication); or iterative reconstruction. FINDINGS: Enteric tube with tip in the stomach. Small bilateral pleural effusions with compressive atelectasis in the lung bases. No free air or bowel perforation. Diffuse transmural wall thickening involving the cecum and RIGHT ascending colon extending into the transverse colon. This involves the hepatic flexu re and splenic flexure. Descending colon has a more normal appearance. More normal-appearing sigmoid colon. Few sigmoid diverticuli. Findings can be seen with infectious inflammatory or ischemic colitis . Fuller catheter. Air-fluid level in the bladder. No significant free fluid in the abdomen or pelvis. N ormal noncontrast liver. Atrophic gallbladder with a few tiny calculi. Fatty atrophy of the pancreas. Adrenal glands are normal. No hydronephrosis in either kidney. Aortic calcification. Normal caliber abdominal aorta. Recent postoperative changes extensive thoracolumbar fusion. Laminectomy defects in the lower lumbar spine. Postoperative changes in the RIGHT lower back and subcutaneous soft tissues. IMPRESSION: 1. Small bilateral pleural effusion with compressive atelectasis in the lung bases. 2. Enteric tube with tip in the stomach. 3. Diffuse wall thickening involving the cecum, ascending colon and transverse colon extending to th e splenic flexure can be seen with infectious, inflammatory or ischemic colitis. LEFT descending colo n has a more normal appearance. No free air or pneumatosis. 4. Fuller catheter in place. 5. Recent extensive postoperative changes pedicle screw fixation lower thoracic and lumbar spine. Message LEFT for Aggie Rivas MD at 11/02/2022 1:57 PM.
[2022-11-02 11:27] LABS: Lactic Acid level (Lactate) 6.5 mmol/L (0.5-2.2)
--- NOTE | 2022-11-02 11:29 | XR_ITS ---
WS: [id number] EXAMINATION: XR chest 1V portable [id number] REASON FOR EXAM: OG tube placement COMPARISON: 11/02/2022 ORDER DATE: 11/02/2022 11:34 AM TECHNIQUE: A single, portable frontal chest x-ray was obtained. X-RAY FINDINGS: FINDINGS: Endotracheal tube with tip above the mehrdad. RIGHT PICC line with tip in the SVC. Shallow inspiration. Enteric tube satisfactorily positioned in the gastric body. Heart: Cardiomegaly. Lungs: Slight bibasilar atelectasis. Lungs are otherwise well aerated. Mild pulmonary vascular congestion. Bones: Partially visualized postoperative changes lower thoracic and lumbar spine. IMPRESSION: 1. Endotracheal tube with tip above the mehrdad. 2. Recently placed enteric tube terminates in the mid gastric body in satisfactory position. 3. Slight lucency under the RIGHT hemidiaphragm may represent interposed bowel. Free air less likely. This can be further evaluated with CT abdomen/pelvis if indicated. 4. RIGHT PICC line with tip in the SVC. 5. Recent postoperative changes thoracolumbar fusion.
--- NOTE | 2022-11-02 11:30 | PC.NURSE ---
OG placed, no complications. Unable to chart assessment at this time due to being in chart.
[2022-11-02 14:30] LABS: Glucose Point of Care 305 mg/dL (70-110)
[2022-11-02 14:47] LABS: Basophils % 0.1 %; Hematocrit 22.4 % (37-53); Lymphocytes # 1.4 10^3/uL (0.8-4.8); Lymphocytes % 7.5 %; Mean Corpuscular HGB Conc 31.7 g/dL (30-55); Mean Corpuscular Hemoglobin 29.8 pg (27-33); Mean Corpuscular Volume 94.1 fl (82-101); Monocytes # 1.2 10^3/uL (0.2-0.9); Monocytes % 6.6 %; Neutrophils # 15.99 10^3/uL (1.8-7.7); Neutrophils % 85.4 %; Nucleated Red Blood Cells % 0 %; Platelet Count 179 10^3/cmm (157-399); Red Blood Count 2.38 10^6/uL (3.85-5.65); Red Cell Distribution Width 13.2 % (12.1-15.1); White Blood Count 18.73 10^3/uL (3.29-11.43)
--- NOTE | 2022-11-02 15:04 | USCV_ITS ---
Marcos Marino Age: 71 Gender: M : 1950 Exam Date: 11/02/2022 16:26 Ordering Phys: Aggie Rivas MD Technologist: NANDINI [place] [facility] [place]: EVAL FOR RWMA BP: 112 / 70 HR: Rhythm: Sinus Technical Quality: Very technically difficult study MEASUREMENTS (Male / Female) Normal Values 2D ECHO LA Width 2.6 cm LA Height 5.1 cm RA Width 2.0 cm RA Height 4.2 cm DOPPLER AV Peak Velocity 203.0 cm/s Right Atrial Pressure 8.0 mmHg FINDINGS Left Ventricle Possibly normal LV size and ejection fraction. Right Ventricle Appears to be of normal size Right Atrium Could not be visualized well Left Atrium Possibly of normal size Mitral Valve Could not be delineated well Aortic Valve Could not be delineated well Tricuspid Valve Could not be delineated well Pulmonic Valve Could not be delineated well Pericardium No pericardial effusion. Aorta Normal aortic annulus size. IVC Inferior vena cava not visualized. CONCLUSIONS Technically difficult study because of the poor ultrasonic windows. Patient is on a vent. Possibly normal LV size and ejection fraction. Possibly normal chamber sizes No pericardial effusion The valve morphology could not be delineated well Dr Stephanie Jarvis MD [facility] (Electronically Signed) Final Date: 02 November 2022 20:50 S
[2022-11-02 15:07] LABS: Alanine Aminotransferase 32 U/L (0-41); Albumin Level 2.8 g/dL (3.5-5.2); Alkaline Phosphatase 68 U/L (40-130); Anion Gap 14.1 (5-19); Aspartate Amino Transferase 49 U/L (0-40); Blood Urea Nitrogen 19 mg/dL (8-23); Calcium 7.1 mg/dL (8.5-10.5); Carbon Dioxide 18 mmol/L (22-29); Chloride 95 mmol/L (98-107); Globulin 1.6 g/dL (1.3-4.6); Osmolality Calculated 284 mOsm/kg (285-295); Potassium 4.1 mmol/L (3.5-5.1); Sodium 123 mmol/L (136-145); Total Bilirubin 0.3 mg/dL (0.15-1.2); Total Protein 4.4 g/dL (6.6-8.7)
[2022-11-02 15:13] LABS: Glucose 554 mg/dL (65-115); Lactate (Lactic Acid level) 4.8 mmol/L (0.5-2.2)
[2022-11-02 15:49] LABS: Troponin T (5th) Once 27 ng/L (0-15)
[2022-11-02 15:52] LABS: ABG PCO2 41.8 mmHg (35-45); Arterial Blood Gas Hematocrit 24.5 % (42-52); Base Excess ABG -5.4 mmol/L (-2.0-2.0); Blood Gas Allen Test Pos; Blood Gas Operator Identificat CAK; Blood Gas Sample Site Radial, right; Blood Gas Sample Type Arterial; Blood Gas Tidal Volume 0.45; HCO3 ABG 20.6 mmol/L (22-26); Oxygen Device VENT; PO2 ABG 68.2 mmHg (80.0-100.0)
[2022-11-02 15:58] LABS: Thyroid Stimulating Hormone 1.15 uIU/mL (0.27-4.20)
[2022-11-02] MEDS: norepinephrine 8 MG in dextrose 5 % 500 ML 45.72 MG IV (16:12)
[2022-11-02] MEDS: sodium chloride 1 gm Tablet PO (16:12)
--- NOTE | 2022-11-02 16:16 | P.CONIM_ITS ---
Providers/Reason For Consult Consulting Physician/Specialty*: General Surgery Reason for Consult*: Ischemic colitis Attending Physician: Julian Byers DO Primary Care Provider: SHREE Ackerman History of Present Illness History of Present Illness Marcos Marino is a 71 year old male who is admitted to the intensive care unit of our hospital due to acute blood loss anemia, hypokalemia and acidosis after spine surgery done yesterday. Per primary team report patient had about 2500 cc of blood loss during his operation, he remained intubated and hypotensive after surgery, requiring Levophed to maintain his blood pressure. Medical ICU team has been working on active resuscitation with blood transfusion and IV fluids, during work-up he was noted to be acidotic with a pH of 7.1-7.2 and he had a lactate level of 6, which later trended down to 4.8. Due to these findings there was a high index of suspicion for possible ischemic colitis and a CT scan of the abdomen and pelvis was done, the same show evidence of colitis affecting the cecum ascending colon and transverse colon up to the splenic flexure. No evidence of free air or any other changes concerning for perforation. I was asked to evaluate the patient due to this finding. On my interview, patient was sedated so he could not tolerate to my assessment, I discussed the case with the family members at the bedside. They have noted that patient has a history of colitis with possible Crohn's disease. Review of Systems Narrative: Review of systems deferred due to patient clinical condition. Medications/Allergies Home Medications Medication Instructions Recorded Confirmed Last Taken Type aspirin 81 mg tablet,delayed 81 mg PO DAILY 03/27/19 10/29/22 10/24/22 History release multivitamin (Multiple Vitamins 1 tab PO QAM 03/27/19 11/01/22 10/31/22 History tablet) triamcinolone acetonide 0.1 % 1 applic topical BID #80 grams 10/01/21 11/01/22 Unknown Rx topical cream cyclobenzaprine 5 mg tablet 5 mg PO TID PRN muscle spasm #60 11/05/21 11/01/22 3 Weeks Ago Rx tabs ~10/11/22 ondansetron 4 mg disintegrating See Rx Instructions .Route 08/12/22 11/01/22 1 Week Ago Rx tablet .COMPLEX #30 tabs ~10/25/22 buspirone 10 mg tablet See Rx Instructions .Route 09/30/22 11/01/22 10/31/22 Rx .COMPLEX #180 tabs levothyroxine 50 mcg tablet 50 mcg PO DAILY #90 tabs 09/30/22 11/01/22 11/01/22 Rx metoprolol tartrate 50 mg tablet 50 mg PO BID #180 tabs 09/30/22 11/01/22 11/01/22 Rx ezetimibe 10 mg tablet (Zetia) 10 mg PO DAILY #90 tabs 10/05/22 10/29/22 10/29/22 Rx Intraoperative Neurophysiological #1 ea 10/25/22 10/25/22 Unknown Rx Testing sodium chloride 1,000 mg soluble See Rx Instructions .Route 10/25/22 11/01/22 10/31/22 Rx tablet .COMPLEX #90 tabs lisinopril 40 mg tablet 40 mg PO DAILY 10/29/22 11/01/22 10/31/22 History Allergies Allergy/AdvReac Type Severity Reaction Status Date / Time tramadol Allergy Intermediate ADR-delirious, Verified 10/29/22 11:37 shakes, fainting Current Medications Generic Name Dose Route Start Last Admin Trade Name Freq PRN Reason Stop Dose Admin Buspirone HCl 10 mg 11/01/22 18:00 11/02/22 09:33 Buspirone 10 Mg Tablet PO Not Given BID TEREZA Docusate Sodium 100 mg 11/01/22 18:00 11/02/22 09:33 Docusate Sodium 100 Mg Capsule PO Not Given BID TEREZA Ezetimibe 10 mg 11/02/22 09:00 11/02/22 09:33 Ezetimibe 10 Mg Tablet PO Not Given DAILY TEREZA Hydrocortisone Sodium Succinate 100 mg 11/01/22 18:00 11/02/22 12:03 Hydrocortisone 100 Mg/2 Ml Sdv IVP 100 mg Q6H TEREZA Administration Midazolam HCl 100 mg/ Sodium 100 mls @ 0 mls/hr 11/01/22 16:00 11/02/22 13:51 Chloride IV 1 mg/hr .Q0M TEREZA 1 mls/hr Titration Protocol Per Protocol Fentanyl 1,000 mcg/ Sodium 100 mls @ 0 mls/hr 11/01/22 16:00 11/02/22 13:38 Chloride IV 100 mcg/hr .Q0M TEREZA 10 mls/hr Administration Protocol Per Protocol Vasopressin 100 unit/ Sodium 100 mls @ 0 mls/hr 11/01/22 16:00 11/02/22 06:16 Chloride IV 0 unit/min .Q0M TEREZA 0 mls/hr Titration Protocol Per Protocol Dexmedetomidine HCl 400 mcg/ 104 mls @ 0 mls/hr 11/01/22 17:15 11/02/22 10:46 Sodium Chloride IV 0 mcg/kg/hr .Q0M TEREZA 0 mls/hr Titration Protocol Per Protocol Norepinephrine Bitartrate 8 mg 508 mls @ 0 mls/hr 11/01/22 18:45 11/02/22 16:12 / Dextrose IV 12 mcg/min .Q0M TEREZA 45.72 mls/hr Administration Protocol Per Protocol Vancomycin/PEG/NADA/Lysine/Water 1,500 mg in 300 mls @ 200 mls/hr 11/02/22 08: 00 11/02/22 10:46 Vancocin IV Infused Q24H TEREZA Infusion Sodium Bicarbonate 150 meq/ 1,150 mls @ 100 mls/hr 11/02/22 08:30 11/02/22 08:38 Dextrose IV 100 mls/hr .[id number] TEREZA Administration Piperacillin Sod/Tazobactam 50 mls @ 12.5 mls/hr 11/02/22 09:30 11/02/22 11:33 Sod 3.375 gm/ Sodium Chloride IV Infused Q8H TEREZA Infusion Protocol As Directed Insulin Human Lispro 0 unit 11/02/22 12:00 11/02/22 12:03 Insulin Lispro 100 Unit/1 Ml SUBCUT 10 unit WM&BEDTIME TEREZA Administration Protocol Insulin Human Lispro 0 unit 11/02/22 09:30 11/02/22 15:35 Insulin Lispro 100 Unit/1 Ml SUBCUT 10 unit Q6H [facility] Administration Protocol Levothyroxine Sodium 50 mcg 11/02/22 09:00 11/02/22 09:33 Levothyroxine 50 Mcg Tablet PO Not Given DAILY [facility] Lisinopril 40 mg 11/02/22 09:00 11/02/22 09:33 Lisinopril 20 Mg Tablet PO Not Given DAILY [facility] Metoprolol Tartrate 50 mg 11/01/22 18:00 11/01/22 17:52 Metoprolol Tartrate 50 Mg Tablet PO Not Given BID [facility] Multivitamins Therapeutic 1 tab 11/02/22 06:00 11/02/22 06:02 Multivitamin Therapeutic Tablet PO Not Given QAM [facility] Ondansetron HCl 4 mg 11/01/22 14:14 11/02/22 00:55 Ondansetron 2 Mg/Ml Sdv 2 Ml IVP 4 mg Q6H PRN Administration NAUSEA AND VOMITING Sodium Chloride 1 gm 11/02/22 16:00 11/02/22 16:12 Sodium Chloride 1 Gm Tablet PO 1 gm DAILY TEREZA Administration Triamcinolone Acetonide 1 applic 11/01/22 18:00 11/02/22 09:50 Triamcinolone 0.1% Cream 15 Gm TOPICAL Not Given BID TEREZA PFSH Acute PFSH: Medical History Chronic low back pain Degenerative disc disease, lumbar Diverticulosis DJD (degenerative joint disease), lumbar Hip pain, right History of colon polyps Hyperlipidemia Hypertension Hyponatremia Internal hemorrhoids Intervertebral disc disorder with radiculopathy of lumbar region Motion sickness Opioid contract exists Shoulder pain Thoracogenic scoliosis Surgical History History of carpal tunnel surgery History of vasectomy Status post hemilaminotomy 05/21/2015 Dr. Jennifer Madden. Left L3-L4, L4-L5 hemilaminotomy, dissectomy/foraminotomy Family History Father Heart disease Denies family history of Clotting disorder Anesthesia complication Bleeding disorder Social History Smoking and tobacco status: former smoker Quit status (tobacco): has quit using tobacco Former quit date comment: more than 25 years ago Second hand smoke exposure: No Alcohol intake: former Former alcohol use details: none for 6 weeks Substance/Drug Use: current Substance/Drug use frequency: few times a month Other substance/drug use details: uses this for pain Caregiver/support person: Yes (spouse) Lives independently: Yes Household members: spouse Marital status: service: No Current occupational status: retired Current gender identity: Male Special danita needs: No Vitals/I&O/Wt Last Vital Signs Temp 94.0 F L 11/02/22 14:50 Pulse 90 11/02/22 14:00 Resp 16 11/02/22 13:31 BP 109/66 11/02/22 13:00 Pulse Ox 92 11/02/22 13:31 O2 Del Method Mechanical Ventilation 11/02/22 13:00 FiO2 35 11/02/22 13:31 11/02/22 11/02/22 11/02/22 06:59 14:59 22:59 Intake Total 857.498 / 4389.313 7515.221 / 1633.221 359.156 / 1992.377 Output Total 300 / 875 900 / 900 Balance 557.498 / 330.761 8414.221 / 1633.221 -540.844 / 1092.377 Physical Exam Narrative: Patient is intubated, sedated, RASS score of -2 Cardiovascular: Hypotensive, tachycardic, requiring Levophed to maintain MAP above 65 Respiratory: Intubated and mechanically ventilated GI: Abdomen is soft, no evidence of peritoneal signs, no evidence of guarding Urinary Catheter Management: Fuller: Cath Placed During This Visit: yes Reason for Continuing Indwelling Catheter: Accurate Measurement of Urinary O utput in Critically Ill Patients Urinary Catheter Date of Insertion: 11/01/22 Urinary Catheter Time of Insertion: 10:30 Data 11/02/22 14:35 11/02/22 14:35 Micro: Microbiology 11/01/22 15:20 Gram Stain - Final Sputum - Endotracheal Tube Aspirate Sputum Culture - Preliminary 11/02/22 00:00 Blood Culture - Preliminary Blood SPECIMEN COLLECTED 11/02/22 00:00 Blood Culture - Preliminary Blood SPECIMEN COLLECTED A&P Assessment and plan (1) Metabolic acidosis: (2) Acute blood loss anemia: (3) Shock circulatory: (4) Colitis: Plan After a complete history, physical examination and review of all available clinical data the following is my assessment. Colitis seen on CT scan of the ab domen, may have been because due to ischemia, due to the abundant blood loss during surgical procedure, requiring subsequent vasopressor and aggressive resuscitation. After my personal review of imaging I do not see any concerning findings that may suggest transmural necrosis. At this point, I think the most appropriate course is to continue aggressive nonsurgical management with resuscitation, correction of acid-base disturbances, ventilatory support and maximal medical management. No further imaging is necessary at this moment, we can continue to monitor patient clinical condition abdominal exam, arterial blood gas and lactate level should be done every 6-8 hours to ensure adequate progression and improvement of the acidosis and elevated lactate. If there is worsening on the clinical condition, it may indicate the need for a CT of the abdomen. I have discussed with the family the findings, I have answered any questions that they had in a satisfactory fashion, I have explained also that in case of clinical worsening there is a chance that the patient may require colectomy, which would be a lifesaving operation at the time, with a high chance for morbidity and mortality. I will continue to see the patient on a daily basis until his acute episode resolves. In the interim we should continue bowel rest with n.p.o. and once patient is recovering advancement of diet should be as low. ?No acute surgical intervention indicated at this time ? Continue trending lactate level and ABG every 6-8 hours ? Continue aggressive resuscitation with blood products, minimize use of cryst alloids to prevent fluid overload ? General surgery will continue to monitor abdominal exam ? In case of worsening of clinical status, CTA of the abdomen will be indicated ? All other care per medical ICU team Coding Level of Care Code 97137 Diagnoses Metabolic acidosis E87.20 Acute blood loss anemia D62 Shock circulatory R57.9 Colitis K52.9
--- NOTE | 2022-11-02 16:31 | PM.PN ---
Subjective Subjective: Patient was seen multiple times during course of the day. Overnight his lactate continued to be elevated, ranging between 6-8. This morning chest x-ray was performed to evaluate for any interval development of pneumonias. While the study was negative for any consolidation there was concern for potential air under the diaphragm for which reason CT of the abdomen pelvis was performed in follow-up. Study also to look for possibility of ischemic colitis given persisting metabolic acidosis pressor demand and elevated lactate. CT of the abdomen and pelvis shows colitis involving ascending transverse colon and the cecum. Suspect this is real ischemic colitis related to significant prolonged hypotension. Interval development also of acute kidney injury with creatinine trending up to 1.4. ABG this morning shows persistent metabolic acidosis with pH of 7.19. Due to persistence of metabolic abnormalities patient was left intubated. NGT inserted to low intermittent suction. Antibiotic coverage broadened from perioperative cefazolin to piperacillin/tazobactam and vancomycin. Blood cultures were drawn overnight, currently pending at this time. Interval development also of leukocytosis. Afebrile currently. Continues to be on Levophed, however requirement is now down to 12 mics. He has been able to be titrated off of vasopressin. Off of sedation patient is awake, alert, following commands. Medications: Reviewed: Yes Vitals/I&O/Wt Last Vital Signs Temp 94.0 F L 11/02/22 14:50 Pulse 90 11/02/22 14:00 Resp 16 11/02/22 16:22 BP 109/66 11/02/22 13:00 Pulse Ox 93 11/02/22 16:22 O2 Del Method Mechanical Ventilation 11/02/22 13:00 FiO2 36 11/02/22 16:22 11/02/22 11/02/22 11/02/22 06:59 14:59 22:59 Intake Total 857.498 / 1865.603 2537.221 / 1633.221 399.462 / 2032.683 Output Total 300 / 875 900 / 900 Balance 557.498 / 169.856 7246.221 / 1633.221 -500.538 / 1132.683 Physical Exam Narrative: General: Intubated, when seen he was on fentanyl and Precedex was still awake but comfortable. He was able to follow commands and respond yes or no to questions by waving and blinking his eyes. HEENT: PERRLA, pupils bilaterally equal and reactive, pallors not present Chest: Normal vesicular breath sounds, no added sounds, equal good air entry bilaterally CVS: S1-S2 regular, no murmurs, no tachycardia, no gallops, no rubs Abdomen: Soft, nondistended, bowel sounds are present. No focal tenderness. Neuro: No focal deficits grossly, however limited assessment given that patient is intubated and sedated Urinary Catheter Management: Fuller: Cath Placed During This Visit: yes Reason for Continuing Indwelling Catheter: Accurate Measurement of Urinary Output in Critically Ill Patients Urinary Catheter Date of Insertion: 11/01/22 Urinary Catheter Time of Insertion: 10:30 Data 11/02/22 14:35 11/02/22 14:35 Micro: Microbiology 11/01/22 15:20 Gram Stain - Final Sputum - Endotracheal Tube Aspirate Sputum Culture - Preliminary 11/02/22 00:00 Blood Culture - Preliminary Blood SPECIMEN COLLECTED 11/02/22 00:00 Blood Culture - Preliminary Blood SPECIMEN COLLECTED A&P Assessment and plan (1) Hypotension: (2) Shock circulatory: (3) Status post lumbar laminectomy: (4) Acute blood loss anemia: (5) Metabolic acidosis: (6) Colitis: (7) ZACK (acute kidney injury): Plan 71-year-old male status post elective lumbar laminectomy on 11/01 with course complicated by acute blood loss estimated to be ~2500 cc, circulatory shock, acute kidney injury and ischemic colitis. #Circulatory shock Most likely related to acute blood loss and resulting hypotension from volume loss. Hemoglobin this morning was down to 8.7, on repeat check this afternoon is down to 7.1. 1 unit of packed red blood cell transfusion has been ordered. Recheck H&H posttransfusion. CT of the abdomen and pelvis today showed evidence of colitis, likely ischemic colitis. Lower possibility of septic shock as the primary inciting factor given that patient was asymptomatic prior to admission, rapid onset of symptoms after acute blood loss and timeline of events. Currently he is on broadened antibiotic coverage with piperacillin/tazobactam and vancomycin due to discovery of ischemic colitis on CAT scan and persistently elevated lactate. He has received 5 L of IV fluid bolus yesterday. Currently on sodium bicarbonate infusion at 100 cc/h. Currently on pressor support with Levophed at 12 mics, down from Levophed 20 and vasopressin 0.6 yesterday. Cut back on stress dose steroids and wean off eventually Patient has not been on any outpatient steroids, low suspicion for adrenal insufficiency. Check TSH Critical care consult to assist with medical management including vent management #Acute blood loss anemia Hemoglobin down to 7.1 today Transfusion with 1 packed red blood cell #Acute kidney injury Suspected ATN from hypotension. Hold all potential nephrotoxins including lisinopril. Volume resuscitation as above Trend creatinine and urine output #Metabolic acidosis Related to tissue hypoperfusion #Colitis on CT abdomen pelvis Suspect this to be ischemic colitis given hypotension yesterday and overall clinical chain of events. IV hydration as above, supportive management N.p.o. for bowel rest NGT in place General surgery consult #Ongoing need for maintaining mechanical ventilation due to multiple metabolic abnormalities, ongoing need for high-dose pressors. Goal to optimize medical management prior to extubation. #DVT prophylaxis: SCDs PUD prophylaxis: Protonix Full code Attestations Medical Necessity Statement*: Per admitting note Critical Care Time: The high probability of a clinically significant, sudden or life threatening deterioration of the patient's [circulatory, respiratory, infectious] system(s) required my full and direct attention, intervention and personal management. The critical care time is as shown. This time is in addition to time spent performing any reported procedures but includes the following: [x] Data and vital sign review and interpretation [x] Patient assessment, examination and intervention [x] Documentation [x] Medication orders and management Critical Care Time (min): 60 Coding Level of Care Code Acute Code for Chg Fwd Diagnoses Hypotension I95.9 Shock circulatory R57.9 Status post lumbar laminectomy Z98.890 Acute blood loss anemia D62 Metabolic acidosis E87.20 Colitis K52.9 ZACK (acute kidney injury) N17.9
[2022-11-02 17:16] LABS: Glucose Point of Care 312 mg/dL (70-110)
[2022-11-02 17:16] LABS: Glucose Point of Care 289 mg/dL (70-110)
[2022-11-02] MEDS: BuSPIRONE 10 mg Tablet PO (17:52)
[2022-11-02] MEDS: docusate sodium 100 mg Capsule PO (17:52)
--- NOTE | 2022-11-02 21:07 | P.CONIM_ITS ---
Providers/Reason For Consult Consulting Physician/Specialty*: Juvenal Mercado MD/ Pulmonary Critical Care Reason for Consult*: To help with the extubation Requesting Physician: Dr. Aggie Rivas Attending Physician: Julian Byers DO Primary Care Provider: SHREE Ackerman History of Present Illness History of Present Illness Marcos Marino is a 71 year old male with a past medical history of hypothyroidism, hypertension, Crohn's disease, who underwent elective T10-L5 S1 laminectomy with partial facetectomy and posterior fusion with Dr. Byers on 11/01/2022. He had an estimated blood loss of 2500 cc in the operating room.? He developed hypotension and required several pushes of phenylephrine in the operating room.? He was transferred to the ICU he was noted to be hypotensive, started on norepinephrine and subsequently required a second pressor addition with vasopressin.? Stat H&H was ordered which showed a hemoglobin drop to 9 from 12 preoperatively.? He was left intubated postoperatively due to poor GCS and mentation. Lab work showed metabolic acidosis with a pH as low as 7.18 and lactic acid as high as 8. Since arrival in the ICU patient has been more alert and awake, he is able to follow all commands.? Comfortable on the ventilator currently.? O2 requirements have been weaned down FiO2 35% Pulmonary critical care consult requested for evaluating for extubation. -Seen patient at bedside-currently sedated with fentanyl 75 and Versed 2 mg -He is still requiring Levophed 14 mcg/hour (down from 20 mcg yesterday)And is off vasopressin. -ABG showed pH 7.19; lactic acid 8.1; bicarb 15-clearly metabolic acidosis -CT abdomen pelvis showed diffuse wall thickening involving the cecum ascending colon and transverse colon extending to the splenic flexure. Findings suspicious with infectious, inflammatory or ischemic colitis -Patient has good urine output with creatinine 1.4 in the morning was later corrected to 1.2 -MARGUERITE drain output from surgical site overnight showed 400 cc Review of Systems General: Reports: 10 or more systems reviewed and unremarkable except in HPI and below Medications/Allergies Home Medications Medication Instructions Recorded Confirmed Last Taken Type aspirin 81 mg tablet,delayed 81 mg PO DAILY 03/27/19 10/29/22 10/24/22 History release multivitamin (Multiple Vitamins 1 tab PO QAM 03/27/19 11/01/22 10/31/22 History tablet) triamcinolone acetonide 0.1 % 1 applic topical BID #80 grams 10/01/21 11/01/22 Unknown Rx topical cream cyclobenzaprine 5 mg tablet 5 mg PO TID PRN muscle spasm #60 11/05/21 11/01/22 3 Weeks Ago Rx tabs ~10/11/22 ondansetron 4 mg disintegrating See Rx Instructions .Route 08/12/22 11/01/22 1 Week Ago Rx tablet .COMPLEX #30 tabs ~10/25/22 buspirone 10 mg tablet See Rx Instructions .Route 09/30/22 11/01/22 10/31/22 Rx .COMPLEX #180 tabs levothyroxine 50 mcg tablet 50 mcg PO DAILY #90 tabs 09/30/22 11/01/22 11/01/22 Rx metoprolol tartrate 50 mg tablet 50 mg PO BID #180 tabs 09/30/22 11/01/22 11/01/22 Rx ezetimibe 10 mg tablet (Zetia) 10 mg PO DAILY #90 tabs 10/05/22 10/29/22 10/29/22 Rx Intraoperative Neurophysiological #1 ea 10/25/22 10/25/22 Unknown Rx Testing sodium chloride 1,000 mg soluble See Rx Instructions .Route 10/25/22 11/01/22 10/31/22 Rx tablet .COMPLEX #90 tabs lisinopril 40 mg tablet 40 mg PO DAILY 10/29/22 11/01/22 10/31/22 History Allergies Allergy/AdvReac Type Severity Reaction Status Date / Time tramadol Allergy Intermediate ADR-delirious, Verified 10/29/22 11:37 shakes, fainting Current Medications Generic Name Dose Route Start Last Admin Trade Name Kd PRN Reason Stop Dose Admin Buspirone HCl 10 mg 11/01/22 18:00 11/02/22 17:52 Buspirone 10 Mg Tablet PO 10 mg BID TEREZA Administration Docusate Sodium 100 mg 11/01/22 18:00 11/02/22 17:52 Docusate Sodium 100 Mg Capsule PO 100 mg BID TEREZA Administration Ezetimibe 10 mg 11/02/22 09:00 11/02/22 09:33 Ezetimibe 10 Mg Tablet PO Not Given DAILY TEREZA Hydrocortisone Sodium Succinate 100 mg 11/02/22 17:00 11/02/22 17:53 Hydrocortisone 100 Mg/2 Ml Sdv IVP 100 mg Q12H TEREZA Administration Midazolam HCl 100 mg/ Sodium 100 mls @ 0 mls/hr 11/01/22 16:00 11/02/22 16:25 Chloride IV 2 mg/hr .Q0M TEREZA 2 mls/hr Titration Protocol Per Protocol Fentanyl 1,000 mcg/ Sodium 100 mls @ 0 mls/hr 11/01/22 16:00 11/02/22 16:25 Chloride IV 75 mcg/hr .Q0M TEREZA 7.5 mls/hr Titration Protocol Per Protocol Vasopressin 100 unit/ Sodium 100 mls @ 0 mls/hr 11/01/22 16:00 11/02/22 06:16 Chloride IV 0 unit/min .Q0M TEREZA 0 mls/hr Titration Protocol Per Protocol Dexmedetomidine HCl 400 mcg/ 104 mls @ 0 mls/hr 11/01/22 17:15 11/02/22 10:46 Sodium Chloride IV 0 mcg/kg/hr .Q0M TEREZA 0 mls/hr Titration Protocol Per Protocol Norepinephrine Bitartrate 8 mg 508 mls @ 0 mls/hr 11/01/22 18:45 11/02/22 16: 25 / Dextrose IV 14 mcg/min .Q0M TEREZA 53.34 mls/hr Titration Protocol Per Protocol Vancomycin/PEG/NADA/Lysine/Water 1,500 mg in 300 mls @ 200 mls/hr 11/02/22 08:00 11/02/22 10:46 Vancocin IV Infused Q24H TEREZA Infusion Sodium Bicarbonate 150 meq/ 1,150 mls @ 100 mls/hr 11/02/22 08:30 11/02/22 21:06 Dextrose IV 100 mls/hr .[id number] TEREZA Administration Piperacillin Sod/Tazobactam 50 mls @ 12.5 mls/hr 11/02/22 09:30 11/02/22 17:52 Sod 3.375 gm/ Sodium Chloride IV 12.5 mls/hr Q8H TEREZA Administration Protocol As Directed Insulin Human Lispro 0 unit 11/02/22 12:00 11/02/22 17:54 Insulin Lispro 100 Unit/1 Ml SUBCUT 12 unit WM&BEDTIME TEREZA Administration Protocol Insulin Human Lispro 0 unit 11/02/22 09:30 11/02/22 15:35 Insulin Lispro 100 Unit/1 Ml SUBCUT 10 unit Q6H TEREZA Administration Protocol Levothyroxine Sodium 50 mcg 11/02/22 09:00 11/02/22 09:33 Levothyroxine 50 Mcg Tablet PO Not Given DAILY TEREZA Metoprolol Tartrate 50 mg 11/01/22 18:00 11/01/22 17:52 Metoprolol Tartrate 50 Mg Tablet PO Not Given BID TEREZA Multivitamins Therapeutic 1 tab 11/02/22 06:00 11/02/22 06:02 Multivitamin Therapeutic Tablet PO Not Given QAM TEREZA Ondansetron HCl 4 mg 11/01/22 14:14 11/02/22 00:55 Ondansetron 2 Mg/Ml Sdv 2 Ml IVP 4 mg Q6H PRN Administration NAUSEA AND VOMITING Sodium Chloride 1 gm 11/02/22 16:00 11/02/22 16:12 Sodium Chloride 1 Gm Tablet PO 1 gm DAILY TEREZA Administration Triamcinolone Acetonide 1 applic 11/01/22 18:00 11/02/22 17:06 Triamcinolone 0.1% Cream 15 Gm TOPICAL Not Given BID TEREZA PFSH Acute PFSH: Medical History Chronic low back pain Degenerative disc disease, lumbar Diverticulosis DJD (degenerative joint disease), lumbar Hip pain, right History of colon polyps Hyperlipidemia Hypertension Hyponatremia Internal hemorrhoids Intervertebral disc disorder with radiculopathy of lumbar region Motion sickness Opioid contract exists Shoulder pain Thoracogenic scoliosis Surgical History History of carpal tunnel surgery History of vasectomy Status post hemilaminotomy 05/21/2015 Dr. Jennifer Madden. Left L3-L4, L4-L5 hemilaminotomy, dissectomy/foraminotomy Family History Father Heart disease Denies family history of Clotting disorder Anesthesia complication Bleeding disorder Social History Smoking and tobacco status: former smoker Quit status (tobacco): has quit using tobacco Former quit date comment: more than 25 years ago Second hand smoke exposure: No Alcohol intake: former Former alcohol use details: none for 6 weeks Substance/Drug Use: current Substance/Drug use frequency: few times a month Other substance/drug use details: uses this for pain Caregiver/support person: Yes (spouse) Lives independently: Yes Household members: spouse Marital status: service: No Current occupational status: retired Current gender identity: Male Special danita needs: No Vitals/I&O/Wt Last Vital Signs Temp 96.5 F L 11/02/22 18:30 Pulse 87 11/02/22 18:30 Resp 16 11/02/22 18:30 BP 117/65 11/02/22 18:30 Pulse Ox 95 11/02/22 18:30 O2 Del Method Mechanical Ventilation 11/02/22 18:30 FiO2 35 11/02/22 18:30 11/02/22 11/02/22 11/02/22 06:59 14:59 22:59 Intake Total 857.498 / 3712.376 8712.221 / 5643.376 5652.462 / 3432.683 Output Total 300 / 875 1750 / 1750 Balance 557.498 / 691.303 0798.221 / 1633.221 49.462 / 1682.683 Physical Exam Narrative: PHYSICAL EXAM: General: lying in bed, sedated and intubated. HEENT:NCAT, PERRLA, EOMI Neck: Supple Lungs: Clear, Heart: s1/s2, RRR Abd: soft, NT, ND, BS + Normoactive Extremities: No edema OFFICE PROFESSIONAL: sedated and limited OFFICE PROFESSIONAL exam possible. SKIN: no rash Urinary Catheter Management: Fuller: Cath Placed During This Visit: yes Reason for Continuing Indwelling Catheter: Accurate Measurement of Urinary Output in Critically Ill Patients Urinary Catheter Date of Insertion: 11/01/22 Urinary Catheter Time of Insertion: 10:30 Data 11/03/22 10:21 11/03/22 10:21 Other Labs: Laboratory Results WBC 20.29 10^3/uL (3.29-11.43) H 11/03/22 10:21 RBC 2.37 10^6/uL (3.85-5.65) L 11/03/22 10:21 Hgb 7.30 g/dL (11.27-16.99) L 11/03/22 10:21 Hct 21.7 % (37-53) L 11/03/22 10:21 MCV 91.6 fl (82-101) 11/03/22 10:21 MCH 30.8 pg (27-33) 11/03/22 10:21 MCHC 33.6 g/dL (30-55) 11/03/22 10:21 RDW 14.5 % (12.1-15.1) 11/03/22 10:21 Plt Count 141 10^3/cmm (157-399) L 11/03/22 10:21 MPV 11.1 fL (7.4-10.4) H 11/03/22 10:21 Neut % (Auto) 83.4 % 11/03/22 10:21 Lymph % (Auto) 7.5 % 11/03/22 10:21 [place] % (Auto) 7.7 % 11/03/22 10:21 Eos % (Auto) 0.0 % 11/03/22 10:21 Baso % (Auto) 0.1 % 11/03/22 10:21 Neut # (Auto) 16.91 10^3/uL (1.8-7.7) H 11/03/22 10:21 Lymph # (Auto) 1.5 10^3/uL (0.8-4.8) 11/03/22 10:21 [place] # (Auto) 1.6 10^3/uL (0.2-0.9) H 11/03/22 10:21 Eos # (Auto) 0.0 10^3/uL (0.0-0.8) 11/03/22 10:21 Baso # (Auto) 0.0 10^3/uL (0.0-0.1) 11/03/22 10:21 Nucleated RBC % (auto) 0 % 11/03/22 10:21 Nucleated RBCs # 0.0 /100WBC 11/03/22 10:21 Specimen Type Arterial 11/03/22 08:24 Sample Site Radial, left 11/03/22 08:24 ABG pH 7.50 (7.35-7.45) H 11/03/22 08:24 ABG pCO2 39.6 mmHg (35-45) 11/03/22 08:24 ABG pO2 78.1 mmHg (80.0-100.0) L 11/03/22 08:24 ABG HCO3 31.1 mmol/L (22-26) H 11/03/22 08:24 ABG O2 Saturation 97.3 11/03/22 08:24 ABG Base Excess 7.3 mmol/L (-2.0-2.0) H 11/03/22 08:24 [place] Test Pos 11/03/22 08:24 A-a O2 Gradient 16.0 mmHg (5-10) H 11/03/22 08:24 Hematocrit 25.9 % (42-52) L 11/03/22 08:24 Hgb O2 Saturation 96.1 % (95-100) 11/03/22 08:24 Carboxyhemoglobin 1.2 %THgb (0.4-20.1) 11/03/22 08:24 Methemoglobin 0.1 % (0.4-1.5) L 11/03/22 08:24 Total Hemoglobin 8.5 g/dL (14-18) L 11/03/22 08:24 Sodium 137.0 mmol/L (131-143) 11/03/22 08:24 Potassium 3.8 mmol/L (3.5-5.0) 11/03/22 08:24 Glucose 191.0 mg/dL (70-115) H 11/03/22 08:24 Ionized Calcium 1.1 mmol/L (1.1-1.4) 11/03/22 08:24 O2 Delivery Device Vent 11/03/22 08:24 FiO2 35.0 % 11/03/22 08:24 Tidal Volume 0.45 11/03/22 08:24 PEEP 5.0 cmH20 11/03/22 08:24 Pillow Filler ID Cak 11/03/22 08:24 Sodium 128 mmol/L (136-145) L 11/03/22 10:21 Potassium 3.5 mmol/L (3.5-5.1) 11/03/22 10:21 Chloride 94 mmol/L (98-107) L 11/03/22 10:21 Carbon Dioxide 26 mmol/L (22-29) 11/03/22 10:21 Anion Gap 11.5 (5-19) 11/03/22 10:21 BUN 16 mg/dL (8-23) 11/03/22 10:21 Creatinine 0.9 mg/dL (0.7-1.2) 11/03/22 10:21 GFR Calculation 83.7 mL/min (90-130) L 11/03/22 10:21 Glucose 387 mg/dL (65-115) H 11/03/22 10:21 POC Glucose 154 mg/dL (70-110) H 11/03/22 08:08 Calculated Osmolality 283 mOsm/kg (285-295) L 11/03/22 10:21 Lactic Acid 6.8 mmol/L (0.5-2.2) H* 11/02/22 08:07 Lactic Acid (Sepsis) 6.5 mmol/L (0.5-2.2) H* 11/02/22 10:57 Lactate 3.0 mmol/L (0.5-2.2) H 11/03/22 10:21 Calcium 6.9 mg/dL (8.5-10.5) L 11/03/22 10:21 Total Bilirubin 0.6 mg/dL (0.15-1.2) 11/03/22 10:21 AST 36 U/L (0-40) 11/03/22 10:21 ALT 27 U/L (0-41) 11/03/22 10:21 Alkaline Phosphatase 60 U/L (40-130) 11/03/22 10:21 Troponin T Gen 5 ng/L 27 ng/L (0-15) H 11/02/22 14:35 Total Protein 4.1 g/dL (6.6-8.7) L 11/03/22 10:21 Albumin 2.3 g/dL (3.5-5.2) L 11/03/22 10:21 Globulin 1.8 g/dL (1.3-4.6) 11/03/22 10:21 TSH 1.15 uIU/mL (0.27-4.20) 11/02/22 14:35 Blood Type A Positive 11/01/22 09:35 Rho(D) Type Positive 11/01/22 09:35 Antibody Screen Negative 11/01/22 09:35 Crossmatch See Detail 11/01/22 09:35 Micro: Microbiology 11/01/22 15:20 Gram Stain - Final Sputum - Endotracheal Tube Aspirate Sputum Culture - Preliminary 11/02/22 00:00 Blood Culture - Preliminary Blood SPECIMEN COLLECTED 11/02/22 00:00 Blood Culture - Preliminary Blood SPECIMEN COLLECTED A&P Assessment and plan (1) Shock circulatory: (2) Acute blood loss anemia: (3) ZACK (acute kidney injury): (4) S/P spinal fusion: (5) Metabolic acidosis: Plan 71 year old male with a past medical history of hypothyroidism, hypertension, Crohn's disease, who underwent elective T10-L5 S1 laminectomy with partial fa cetectomy and posterior fusion on 11/01/2022. #Circulatory shock secondary toBlood loss post laminectomy 11/01/2022 -Currently requiring Levophed 14 mcg -Drop in H&H to 7.10/-s/p 1 PRBC today -ABG suggestive of metabolic acidosis with pH 7.19;;Lactic acid 8, bicarb 15 - S tarted on bicarb drip - #Ventilator management -He was left intubated postoperatively due to poor GCS and mentation. -Currently patient is on minimal vent settings with FiO2 35%-oxygenation is good. ABG showed metabolic acidosis -Chest x-ray no acute changes -CT abdomen pelvis showed Small bilateral pleural effusions -Today we will transfuse blood-And Once underlying acidosis is corrected-we will plan to extubate #Acute kidney injury-likely secondary to hypovolemia due to blood loss -However creatinine seem to stabilize -We will continue pressor support to maintain MAP more than 65 and prevent further renal injury -We will monitor urine output and electrolytes #Concern for ischemic colitis causing metabolic acidosis -CT abdomen pelvis showed diffuse wall thickening involving cecum, ascending colon and transverse colon extending to splenic flexure-less descending colon has more normal appearance-most consistent with ischemic colitis in the setting of significant blood volume loss -General surgery consulted and currently recommended to monitor -There is no evidence of any bloody stool #S/p spinal fusion surgery 11/01/2022 -Followed by Dr. Byers spine surgeon -Patient is on [place]; currently on fentanyl for sedation as well as pain #Leukocytosis -Patient started on vancomycin and Zosyn -Blood cultures pending ICU CHECKLIST: Problem list updated Verbal orders reviewed and signed Code Status: Full code Disposition: ICU Critically ill:Yes MD discussed with: Hospitalist, RN, RT Analgesia: Fentanyl Glycemic Control: Insulin Nutrition: N.p.o. Restraint Renewal (within 24 hrs): Yes Ulcer Prophylaxis: PPI Chemical Thromboprophylaxis: Prophylaxis: None as patient has bleeding Mechanical Thromboprophylaxis: SCDs Need for Fuller catheter: Yes for urine output Critical Care Time (No Overlap): 82 min Consult Attestations Medical Necessity Statement: Needs close ICU monitoring for ongoing blood loss, ventilator management Time Spent in Patient Care: Greater than 35 minutes (>than 50% of time spent in counselling and/or direct pt care on unit) . Critical Care Time: This patient has a high probability of clinically significant, sudden or life threatening deterioration of the patient's (Hematologic, respiratory, renal,) systems required my full, direct attention, the highest level of physician preparedness for urgent intervention and personal management. I managed/supervised life or organ supporting interventions that required frequent physician assessment. I devoted my full attention in the ICU to the direct care of this patient for the period of time indicated above. Time I spent with family or surrogate(s) is included only if the patient was incapable of providing necessary information or participating in decision making. This time includes the following services provided: Telemetry review Mechanical Ventilation Hemodynamic interpretation, assessment and management Review and interpretation of CXR Review and interpretation of lab values Review and interpretation of microbiologic data and culture results Review of medications and administration Review and interpretation of Nutrition requirements and management Discussion of management with other consultants and services Clinical update to family members [x] Data and vital sign review and interpretation [x] Patient assessment, examination and intervention [x] Documentation [x] Medication orders and management Time spent for teaching as well as performing procedures are billed separately and is not included in this note Critical Care Time (min): 82 Coding Level of Care Code 26209 Diagnoses Shock circulatory R57.9 Acute blood loss anemia D62 ZACK (acute kidney injury) N17.9 S/P spinal fusion Z98.1 Metabolic acidosis E87.20 Time Spent (min) 82
[2022-11-02 21:36] LABS: Basophils % 0.1 %; Hematocrit 25.1 % (37-53); Lymphocytes # 1.3 10^3/uL (0.8-4.8); Lymphocytes % 6.2 %; Mean Corpuscular HGB Conc 33.9 g/dL (30-55); Mean Corpuscular Volume 91.6 fl (82-101); Mean Platelet Volume 10.9 fL (7.4-10.4); Monocytes # 1.5 10^3/uL (0.2-0.9); Monocytes % 7.1 %; Neutrophils # 17.43 10^3/uL (1.8-7.7); Neutrophils % 85.9 %; Nucleated Red Blood Cells % 0 %; Platelet Count 188 10^3/cmm (157-399); Red Blood Count 2.74 10^6/uL (3.85-5.65); Red Cell Distribution Width 13.2 % (12.1-15.1); White Blood Count 20.31 10^3/uL (3.29-11.43)
[2022-11-02 21:54] LABS: Lactate (Lactic Acid level) 3.1 mmol/L (0.5-2.2)
[2022-11-02 21:57] LABS: Alanine Aminotransferase 31 U/L (0-41); Albumin Level 2.9 g/dL (3.5-5.2); Alkaline Phosphatase 72 U/L (40-130); Anion Gap 13.1 (5-19); Aspartate Amino Transferase 52 U/L (0-40); Blood Urea Nitrogen 21 mg/dL (8-23); Calcium 7.6 mg/dL (8.5-10.5); Carbon Dioxide 25 mmol/L (22-29); Chloride 102 mmol/L (98-107); Globulin 1.7 g/dL (1.3-4.6); Glomerular Filtration Rate 66.4 mL/min (90-130); Glucose 240 mg/dL (65-115); Osmolality Calculated 293 mOsm/kg (285-295); Potassium 4.1 mmol/L (3.5-5.1); Sodium 136 mmol/L (136-145); Total Bilirubin 0.8 mg/dL (0.15-1.2); Total Protein 4.6 g/dL (6.6-8.7)
[2022-11-02 22:20] LABS: Glucose Point of Care 207 mg/dL (70-110)
[2022-11-03] VITALS (59 sets, daily range): BP systolic 90–148; BP diastolic 52–81; PULSE 66–116; RESP 8–24; TEMP 36.3–36.9; O2SAT 70–99
[2022-11-03] MEDS: piperacillin-tazobactam 3.375 GM in sodium chloride 0.9% (plus) 50 ML IV ×3 (01:57→17:03)
[2022-11-03] MEDS: norepinephrine 8 MG in dextrose 5 % 500 ML 53.34 MG IV (02:21)
[2022-11-03 03:11] LABS: Glucose Point of Care 173 mg/dL (70-110)
[2022-11-03] MEDS: insulin lispro 100 unit/1 mL SUBCUT ×3 (03:26→13:02)
[2022-11-03] MEDS: multivitamin therapeutic Tablet 1 TAB PO (05:17)
[2022-11-03] MEDS: hydrocortisone 100 mg/2 mL SDV IVP (05:17)
[2022-11-03 05:26] LABS: Basophils % 0.1 %; Hematocrit 23.4 % (37-53); Lymphocytes # 1.8 10^3/uL (0.8-4.8); Lymphocytes % 7.9 %; Mean Corpuscular HGB Conc 34.2 g/dL (30-55); Mean Corpuscular Hemoglobin 30.1 pg (27-33); Mean Platelet Volume 11.4 fL (7.4-10.4); Monocytes # 2.4 10^3/uL (0.2-0.9); Monocytes % 10.4 %; Neutrophils # 18.34 10^3/uL (1.8-7.7); Neutrophils % 80.7 %; Nucleated Red Blood Cells % 0 %; Platelet Count 175 10^3/cmm (157-399); Red Blood Count 2.66 10^6/uL (3.85-5.65); Red Cell Distribution Width 13.9 % (12.1-15.1); White Blood Count 22.75 10^3/uL (3.29-11.43)
[2022-11-03 06:01] LABS: Lactate (Lactic Acid level) 2.7 mmol/L (0.5-2.2)
[2022-11-03 06:02] LABS: Alanine Aminotransferase 30 U/L (0-41); Albumin Level 2.8 g/dL (3.5-5.2); Alkaline Phosphatase 70 U/L (40-130); Aspartate Amino Transferase 48 U/L (0-40); Blood Urea Nitrogen 20 mg/dL (8-23); Calcium 7.7 mg/dL (8.5-10.5); Carbon Dioxide 28 mmol/L (22-29); Chloride 101 mmol/L (98-107); Globulin 1.8 g/dL (1.3-4.6); Glomerular Filtration Rate 66.4 mL/min (90-130); Glucose 169 mg/dL (65-115); Osmolality Calculated 291 mOsm/kg (285-295); Sodium 137 mmol/L (136-145); Total Bilirubin 0.7 mg/dL (0.15-1.2); Total Protein 4.6 g/dL (6.6-8.7)
--- NOTE | 2022-11-03 07:17 | PM.PN ---
Subjective Subjective: POD 2 Pt remains intubated. Vitals/I&O/Wt Last Vital Signs Temp 96.5 F L 11/02/22 18:30 Pulse 90 11/03/22 06:00 Resp 16 11/03/22 04:19 BP 119/63 11/03/22 06:00 Pulse Ox 96 11/03/22 06:00 O2 Del Method Mechanical Ventilation 11/02/22 18:30 FiO2 35 11/03/22 04:19 11/02/22 11/03/22 11/03/22 22:59 06:59 14:59 Intake Total 1799.462 / 3432.683 685.361 / 4118.044 Output Total 2024 / 2024 750 / 2775 Balance -225.538 / 1407.683 -64.639 / 1343.044 Physical Exam Narrative: Pt intubated. Hemovac intact with husain cath present. Feet warm with good cap refill. SCDs present. Inciision C/D Urinary Catheter Management: Husain: Cath Placed During This Visit: yes Reason for Continuing Indwelling Catheter: Accurate Measurement of Urinary Output in Critically Ill Patients Urinary Catheter Date of Insertion: 11/01/22 Urinary Catheter Time of Insertion: 10:30 Data 11/03/22 04:15 11/03/22 04:15 Micro: Microbiology 11/02/22 00:00 Blood Culture - Preliminary Blood NEGATIVE TO DATE 11/02/22 00:00 Blood Culture - Preliminary Blood NEGATIVE TO DATE 11/01/22 15:20 Gram Stain - Final Sputum - Endotracheal Tube Aspirate Sputum Culture - Preliminary A&P Assessment and plan (1) S/P spinal fusion: I released the ABD binder while supine. DC hemovac drain. High risk of bleeding and will continue SCDs for DVT Prophylaxis. (2) Acute blood loss anemia: Attestations Medical Necessity Statement*: Defer to Medical Team Coding Level of Care Code Acute Code for Chg Fwd Diagnoses S/P spinal fusion Z98.1 Acute blood loss anemia D62
[2022-11-03 08:13] LABS: Glucose Point of Care 154 mg/dL (70-110)
--- NOTE | 2022-11-03 08:17 | XR_ITS ---
WS: [id number] EXAMINATION: XR chest 1V portable 72016 REASON FOR EXAM: Follow up COMPARISON: 11/02/2022 ORDER DATE: 11/03/2022 8:26 AM TECHNIQUE: A single, portable frontal chest x-ray was obtained. X-RAY FINDINGS: FINDINGS: Endotracheal tube with tip above the mehrdad. RIGHT PICC line with tip in the SVC. Shallow inspiration. Enteric tube satisfactorily positioned in the gastric body. Heart: Cardiomegaly. Lungs: Unchanged mild left atelectasis. Lungs are otherwise well aerated. Resolution of most of the p ulmonary vascular congestion. Bones: Partially visualized postoperative changes lower thoracic and lumbar spine. IMPRESSION: 1. Near complete resolution of residual pulmonary vascular congestion compared with previous 2.. Residual mild left basal atelectasis
[2022-11-03 08:36] LABS: ABG PCO2 39.6 mmHg (35-45); Arterial Blood Gas Hematocrit 25.9 % (42-52); Base Excess ABG 7.3 mmol/L (-2.0-2.0); Blood Gas Allen Test Pos; Blood Gas Operator Identificat CAK; Blood Gas Sample Site Radial, left; Blood Gas Sample Type Arterial; Blood Gas Tidal Volume 0.45; Carboxyhemoglobin 1.2 %THgb (0.4-20.1); HCO3 ABG 31.1 mmol/L (22-26); HGB O2 Sat 96.1 % (95-100); Ionized Calcium Level - ABG 1.1 mmol/L (1.1-1.4); Methemoglobin 0.1 % (0.4-1.5); Oxygen Device VENT; Oxygen Saturation ABG 97.3; PO2 ABG 78.1 mmHg (80.0-100.0); Potassium Level - ABG 3.8 mmol/L (3.5-5.0); Total Hemoglobin 8.5 g/dL (14-18)
[2022-11-03] MEDS: pantoprazole 40 mg SDV IVP (08:39)
[2022-11-03] MEDS: sodium chloride 1 gm Tablet PO (08:40)
[2022-11-03] MEDS: levothyroxine 50 mcg Tablet PO (08:40)
[2022-11-03] MEDS: ezetimibe 10 mg Tablet PO (08:40)
[2022-11-03] MEDS: BuSPIRONE 10 mg Tablet PO ×2 (08:40→18:12)
[2022-11-03] MEDS: vancomycin 1,500 MG/300 ML PIGGYBACK 200 MG IV (08:41)
[2022-11-03 10:29] LABS: Basophils % 0.1 %; Hematocrit 21.7 % (37-53); Lymphocytes # 1.5 10^3/uL (0.8-4.8); Lymphocytes % 7.5 %; Mean Corpuscular HGB Conc 33.6 g/dL (30-55); Mean Corpuscular Hemoglobin 30.8 pg (27-33); Mean Corpuscular Volume 91.6 fl (82-101); Mean Platelet Volume 11.1 fL (7.4-10.4); Monocytes # 1.6 10^3/uL (0.2-0.9); Monocytes % 7.7 %; Neutrophils # 16.91 10^3/uL (1.8-7.7); Neutrophils % 83.4 %; Nucleated Red Blood Cells % 0 %; Platelet Count 141 10^3/cmm (157-399); Red Blood Count 2.37 10^6/uL (3.85-5.65); Red Cell Distribution Width 14.5 % (12.1-15.1); White Blood Count 20.29 10^3/uL (3.29-11.43)
[2022-11-03 10:46] LABS: Alanine Aminotransferase 27 U/L (0-41); Albumin Level 2.3 g/dL (3.5-5.2); Alkaline Phosphatase 60 U/L (40-130); Anion Gap 11.5 (5-19); Aspartate Amino Transferase 36 U/L (0-40); Blood Urea Nitrogen 16 mg/dL (8-23); Calcium 6.9 mg/dL (8.5-10.5); Carbon Dioxide 26 mmol/L (22-29); Chloride 94 mmol/L (98-107); Creatinine Clr Calc Pharmacy 84.7258; Globulin 1.8 g/dL (1.3-4.6); Glomerular Filtration Rate 83.7 mL/min (90-130); Glucose 387 mg/dL (65-115); Osmolality Calculated 283 mOsm/kg (285-295); Potassium 3.5 mmol/L (3.5-5.1); Sodium 128 mmol/L (136-145); Total Bilirubin 0.6 mg/dL (0.15-1.2); Total Protein 4.1 g/dL (6.6-8.7)
[2022-11-03] MEDS: norepinephrine 8 MG in dextrose 5 % 500 ML 34.29 MG IV (13:06)
--- NOTE | 2022-11-03 16:00 | PM.PN ---
Subjective Subjective: Patient was successfully able to be extubated this afternoon. Drain output today was at 300 cc. Breathing well postextubation Medications: Reviewed: Yes Vitals/I&O/Wt Last Vital Signs Temp 98.4 F 11/03/22 19:00 Pulse 124 H 11/04/22 01:00 Resp 20 H 11/04/22 01:00 BP 112/64 11/04/22 01:00 Pulse Ox 88 L 11/04/22 01:00 O2 Del Method Nasal Cannula 11/03/22 21:05 O2 Flow Rate 3 11/03/22 21:05 FiO2 30 11/03/22 16:30 11/03/22 11/03/22 11/04/22 14:59 22:59 06:59 Intake Total 2169.718 / 2169.718 551.180 / 2720.898 Output Total 900 / 900 600 / 1500 Balance 1269.718 / 1269.718 -48.820 / 1220.898 Physical Exam Narrative: General: Now extubated, breathing well, however still somnolent HEENT: PERRLA, pupils bilaterally equal and reactive, pallors not present Chest: Normal vesicular breath sounds, no added sounds, equal good air entry bilaterally CVS: S1-S2 regular, no murmurs, no tachycardia, no gallops, no rubs Abdomen: Soft, nondistended, bowel sounds are present. No focal tenderness. Neuro: No focal deficits grossly Urinary Catheter Management: Fuller: Cath Placed During This Visit: yes Reason for Continuing Indwelling Catheter: Accurate Measurement of Urinary Output in Critically Ill Patients Urinary Catheter Date of Insertion: 11/01/22 Urinary Catheter Time of Insertion: 10:30 Data 11/04/22 04:27 11/04/22 04:27 Micro: Microbiology 11/01/22 15:20 Gram Stain - Final Sputum - Endotracheal Tube Aspirate Sputum Culture - Final 11/02/22 00:00 Blood Culture - Preliminary Blood NEGATIVE TO DATE 11/02/22 00:00 Blood Culture - Preliminary Blood NEGATIVE TO DATE A&P Assessment and plan (1) Hypotension: (2) Shock circulatory: (3) Status post lumbar laminectomy: (4) Acute blood loss anemia: (5) Metabolic acidosis: (6) Colitis: (7) ZACK (acute kidney injury): Plan 71-year-old male status post elective lumbar laminectomy on 11/01 with course complicated by acute blood loss estimated to be ~2500 cc, circulatory shock, acute kidney injury and ischemic colitis. #Circulatory shock Most likely related to acute blood loss and resulting hypotension from volume loss. Hemoglobin this morning was down to 8.7, on repeat check this afternoon is down to 7.1. 1 unit of packed red blood cell transfusion has been ordered. Recheck H&H posttransfusion. CT of the abdomen and pelvis today showed evidence of colitis, likely ischemic colitis. Lower possibility of septic shock as the primary inciting factor given that patient was asymptomatic prior to admission, rapid onset of symptoms after acute blood loss and timeline of events. Currently he is on broadened antibiotic coverage with piperacillin/tazobactam and vancomycin due to discovery of ischemic colitis on CAT scan and persistently elevated lactate. He has received 5 L of IV fluid bolus yesterday. Currently on sodium bicarbonate infusion at 100 cc/h. Currently on pressor support with Levophed at 12 mics, down from Levophed 20 and vasopressin 0.6 yesterday. Cut back on stress dose steroids and wean off eventually Patient has not been on any outpatient steroids, low suspicion for adrenal insufficiency. Check TSH Critical care consult to assist with medical management including vent management #Acute blood loss anemia Hemoglobin down to 7.1 today Transfusion with 1 packed red blood cell #Acute kidney injury Suspected ATN from hypotension. Hold all potential nephrotoxins including lisinopril. Volume resuscitation as above Trend creatinine and urine output #Metabolic acidosis Related to tissue hypoperfusion #Colitis on CT abdomen pelvis Suspect this to be ischemic colitis given hypotension yesterday and overall clinical chain of events. IV hydration as above, supportive management N.p.o. for bowel rest NGT in place General surgery consult #Ongoing need for maintaining mechanical ventilation due to multiple metabolic abnormalities, ongoing need for high-dose pressors. Goal to optimize medical management prior to extubation. #DVT prophylaxis: SCDs PUD prophylaxis: Protonix Full code Plan for today: Patient was successfully extubated, closely monitor breathing, continue to trend H&H. Received 1 unit of blood transfusion today. Attestations Medical Necessity Statement*: Extubation, transfuse blood, continue close monitoring in the ICU Coding Level of Care Code Acute Code for Chg Fwd Diagnoses Hypotension I95.9 Shock circulatory R57.9 Status post lumbar laminectomy Z98.890 Acute blood loss anemia D62 Metabolic acidosis E87.20 Colitis K52.9 ZACK (acute kidney injury) N17.9
[2022-11-03 16:22] LABS: ABG PCO2 42.8 mmHg (35-45); ABG PH Result 7.47 (7.35-7.45); Alveolar-Arterial Oxygen Gradi 10.8 mmHg (5-10); Arterial Blood Gas Hematocrit 26.9 % (42-52); Base Excess ABG 6.8 mmol/L (-2.0-2.0); Blood Gas Allen Test Pos; Blood Gas Operator Identificat CAK; Blood Gas Sample Site Brachial, left; Blood Gas Sample Type Arterial; Carboxyhemoglobin 1.3 %THgb (0.4-20.1); HCO3 ABG 31.1 mmol/L (22-26); HGB O2 Sat 95.6 % (95-100); Ionized Calcium Level - ABG 1.1 mmol/L (1.1-1.4); Methemoglobin 0.6 % (0.4-1.5); Oxygen Device VENT; Oxygen Saturation ABG 97.4; PO2 ABG 78.4 mmHg (80.0-100.0); Potassium Level - ABG 3.8 mmol/L (3.5-5.0); Total Hemoglobin 8.8 g/dL (14-18)
--- NOTE | 2022-11-03 16:45 | PC.NURSE ---
Extubated at 1635 by RT and RN to [facility]. Neuro intact, speech, automobile club information clerk equal and strong, moves all 4 extremities equally, face symmetrical. Family at bedside.
[2022-11-03 17:11] LABS: Glucose Point of Care 165 mg/dL (70-110)
[2022-11-03 17:11] LABS: Glucose Point of Care 124 mg/dL (70-110)
[2022-11-03 17:22] LABS: Basophils % 0.1 %; Hematocrit 25.8 % (37-53); Lymphocytes # 1.7 10^3/uL (0.8-4.8); Lymphocytes % 8.5 %; Mean Corpuscular HGB Conc 33.3 g/dL (30-55); Mean Corpuscular Volume 89.9 fl (82-101); Mean Platelet Volume 11.2 fL (7.4-10.4); Monocytes # 2.2 10^3/uL (0.2-0.9); Monocytes % 10.6 %; Neutrophils # 16.27 10^3/uL (1.8-7.7); Neutrophils % 79.7 %; Nucleated Red Blood Cells % 0 %; Platelet Count 138 10^3/cmm (157-399); Red Blood Count 2.87 10^6/uL (3.85-5.65); Red Cell Distribution Width 14.4 % (12.1-15.1); White Blood Count 20.42 10^3/uL (3.29-11.43)
--- NOTE | 2022-11-03 17:34 | P.PN_ITS ---
Subjective Subjective: No acute events overnight Patient is still intubated and sedated with Versed 4 and fentanyl 100 Chest x-ray does not show any infiltrates On minimal vent settings with FiO2 30% ABG is more towards metabolic alkalotic side-we will discontinue bicarb drip MARGUERITE drain from operated site is 75 cc overnight-there is drop in H&H to 7.30; and plan is to transfuse second unit Levophed down to 10 -Gradually taper sedation and patient tolerated breathing trial-he was extubated successfully No bowel movement yet Medications: Reviewed: Yes Vitals/I&O/Wt Last Vital Signs Temp 97.4 F L 11/03/22 15:00 Pulse 88 11/03/22 15:00 Resp 8 L 11/03/22 15:24 BP 108/67 11/03/22 15:00 Pulse Ox 94 11/03/22 15:24 O2 Del Method Mechanical Ventilation 11/03/22 15:00 FiO2 30 11/03/22 15:24 11/03/22 11/03/22 11/03/22 06:59 14:59 22:59 Intake Total 685.361 / 4118.044 2169.718 / 2169.718 452.755 / 2622.473 Output Total 750 / 2775 900 / 900 Balance -64.639 / 6045.319 3063.718 / 1269.718 452.755 / 1722.473 Physical Exam Narrative: PHYSICAL EXAM: General: Sitting in bed not in acute distress. 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 SKIN: no rash Urinary Catheter Management: Fuller: Cath Placed During This Visit: yes Reason for Continuing Indwelling Catheter: Accurate Measurement of Urinary Output in Critically Ill Patients Urinary Catheter Date of Insertion: 11/01/22 Urinary Catheter Time of Insertion: 10:30 Data 11/03/22 16:15 11/03/22 16:15 Other Labs: Laboratory Results WBC 20.42 10^3/uL (3.29-11.43) H 11/03/22 16:15 RBC 2.87 10^6/uL (3.85-5.65) L 11/03/22 16:15 Hgb 8.60 g/dL (11.27-16.99) L 11/03/22 16:15 Hct 25.8 % (37-53) L 11/03/22 16:15 MCV 89.9 fl (82-101) 11/03/22 16:15 MCH 30.0 pg (27-33) 11/03/22 16:15 MCHC 33.3 g/dL (30-55) 11/03/22 16:15 RDW 14.4 % (12.1-15.1) 11/03/22 16:15 Plt Count 138 10^3/cmm (157-399) L 11/03/22 16:15 MPV 11.2 fL (7.4-10.4) H 11/03/22 16:15 Neut % (Auto) 79.7 % 11/03/22 16:15 Lymph % (Auto) 8.5 % 11/03/22 16:15 [place] % (Auto) 10.6 % 11/03/22 16:15 Eos % (Auto) 0.0 % 11/03/22 16:15 Baso % (Auto) 0.1 % 11/03/22 16:15 Neut # (Auto) 16.27 10^3/uL (1.8-7.7) H 11/03/22 16:15 Lymph # (Auto) 1.7 10^3/uL (0.8-4.8) 11/03/22 16:15 [place] # (Auto) 2.2 10^3/uL (0.2-0.9) H 11/03/22 16:15 Eos # (Auto) 0.0 10^3/uL (0.0-0.8) 11/03/22 16:15 Baso # (Auto) 0.0 10^3/uL (0.0-0.1) 11/03/22 16:15 Nucleated RBC % (auto) 0 % 11/03/22 16:15 Nucleated RBCs # 0.0 /100WBC 11/03/22 16:15 Specimen Type Arterial 11/03/22 16:12 Sample Site Brachial, left 11/03/22 16:12 ABG pH 7.47 (7.35-7.45) H 11/03/22 16:12 ABG pCO2 42.8 mmHg (35-45) 11/03/22 16:12 ABG pO2 78.4 mmHg (80.0-100.0) L 11/03/22 16:12 ABG HCO3 31.1 mmol/L (22-26) H 11/03/22 16:12 ABG O2 Saturation 97.4 11/03/22 16:12 ABG Base Excess 6.8 mmol/L (-2.0-2.0) H 11/03/22 16:12 [place] Test Pos 11/03/22 16:12 A-a O2 Gradient 10.8 mmHg (5-10) H 11/03/22 16:12 Hematocrit 26.9 % (42-52) L 11/03/22 16:12 Hgb O2 Saturation 95.6 % (95-100) 11/03/22 16:12 Carboxyhemoglobin 1.3 %THgb (0.4-20.1) 11/03/22 16:12 Methemoglobin 0.6 % (0.4-1.5) 11/03/22 16:12 Total Hemoglobin 8.8 g/dL (14-18) L 11/03/22 16:12 Sodium 138.0 mmol/L (131-143) 11/03/22 16:12 Potassium 3.8 mmol/L (3.5-5.0) 11/03/22 16:12 Glucose 141.0 mg/dL (70-115) H 11/03/22 16:12 Ionized Calcium 1.1 mmol/L (1.1-1.4) 11/03/22 16:12 O2 Delivery Device Vent 11/03/22 16:12 FiO2 30.0 % 11/03/22 16:12 Tidal Volume 0.45 11/03/22 08:24 PEEP 5.0 cmH20 11/03/22 08:24 Bolt Sawyer ID Cak 11/03/22 16:12 Sodium 137 mmol/L (136-145) 11/03/22 16:15 Potassium 4.0 mmol/L (3.5-5.1) 11/03/22 16:15 Chloride 101 mmol/L (98-107) 11/03/22 16:15 Carbon Dioxide 30 mmol/L (22-29) H 11/03/22 16:15 Anion Gap 10.0 (5-19) 11/03/22 16:15 BUN 17 mg/dL (8-23) 11/03/22 16:15 Creatinine 0.8 mg/dL (0.7-1.2) 11/03/22 16:15 GFR Calculation 95.8 mL/min (90-130) 11/03/22 16:15 Glucose 140 mg/dL (65-115) H 11/03/22 16:15 POC Glucose 124 mg/dL (70-110) H 11/03/22 15:51 Calculated Osmolality 288 mOsm/kg (285-295) 11/03/22 16:15 Lactic Acid 6.8 mmol/L (0.5-2.2) H* 11/02/22 08:07 Lactic Acid (Sepsis) 6.5 mmol/L (0.5-2.2) H* 11/02/22 10:57 Lactate 2.0 mmol/L (0.5-2.2) 11/03/22 16:15 Calcium 7.6 mg/dL (8.5-10.5) L 11/03/22 16:15 Total Bilirubin 0.8 mg/dL (0.15-1.2) 11/03/22 16:15 AST 40 U/L (0-40) 11/03/22 16:15 ALT 29 U/L (0-41) 11/03/22 16:15 Alkaline Phosphatase 70 U/L (40-130) 11/03/22 16:15 Troponin T Gen 5 ng/L 27 ng/L (0-15) H 11/02/22 14:35 Total Protein 4.6 g/dL (6.6-8.7) L 11/03/22 16:15 Albumin 2.5 g/dL (3.5-5.2) L 11/03/22 16:15 Globulin 2.1 g/dL (1.3-4.6) 11/03/22 16:15 TSH 1.15 uIU/mL (0.27-4.20) 11/02/22 14:35 Blood Type A Positive 11/01/22 09:35 Rho(D) Type Positive 11/01/22 09:35 Antibody Screen Negative 11/01/22 09:35 Crossmatch See Detail 11/01/22 09:35 Micro: Microbiology 11/01/22 15:20 Gram Stain - Final Sputum - Endotracheal Tube Aspirate Sputum Culture - Final 11/02/22 00:00 Blood Culture - Preliminary Blood NEGATIVE TO DATE 11/02/22 00:00 Blood Culture - Preliminary Blood NEGATIVE TO DATE A&P Assessment and plan (1) Shock circulatory: (2) Acute blood loss anemia: (3) ZACK (acute kidney injury): (4) S/P spinal fusion: (5) Metabolic acidosis: Plan 71 year old male with a past medical history of hypothyroidism, hypertension, Crohn's disease, who underwent elective T10-L5 S1 laminectomy with partial facetectomy and posterior fusion on 11/01/2022. #Circulatory shock secondary toBlood loss post laminectomy 11/01/2022 -Currently requiring Levophed 5 mcg -There is 200 cc MARGUERITE drain output during morning shift today; drop in H&H to 7.30/-s/p 1 PRBC on 11/02/2022; second unit transfused today 11/03/2022 -Closely monitor H&H and transfuse to keep saturation H&H close to 11/04 #Ventilator management-successfully extubated to nasal cannula 3 L -He was left intubated postoperatively due to poor GCS and mentation. -Yesterday patient is on minimal vent settings with FiO2 30% %-oxygenation is good. ABG showed metabolic acidosis -Chest x-ray no acute changes -CT abdomen pelvis showed Small bilateral pleural effusions-patient has good urine output and lung sounds clear -ABG showed improvement in metabolic acidosis -Patient following commands off sedation-tolerated SBT-successfully extubated to 3 L nasal cannula #Acute kidney injury-likely secondary to hypovolemia due to blood loss -However creatinine seem to stabilize -We will continue pressor support to maintain MAP more than 65 and prevent further renal injury -We will monitor urine output and electrolytes #Concern for ischemic colitis causing metabolic acidosis -CT abdomen pelvis showed diffuse wall thickening involving cecum, ascending colon and transverse colon extending to splenic flexure-less descending colon has more normal appearance-most consistent with ischemic colitis in the setting of significant blood volume loss -General surgery consulted and currently recommended to monitor -There is no evidence of any bloody stool #S/p spinal fusion surgery 11/01/2022 -Followed by Dr. Byers spine surgeon -Patient is on Jordan; currently on fentanyl for sedation as well as pain #Leukocytosis -Patient started on vancomycin and Zosyn -Blood cultures pending ICU CHECKLIST: Problem list updated Verbal orders reviewed and signed Code Status: Full code Disposition: ICU Critically ill:Yes MD discussed with: Hospitalist, RN, RT Analgesia: Fentanyl Glycemic Control: Insulin Nutrition: N.p.o. Restraint Renewal (within 24 hrs): Yes Ulcer Prophylaxis: PPI Chemical Thromboprophylaxis: Prophylaxis: None as patient has bleeding Mechanical Thromboprophylaxis: SCDs Need for Fuller catheter: Yes for urine output Critical Care Time (No Overlap): 82 min Attestations Medical Necessity Statement*: Postextubation-still requiring pressors-MARGUERITE drain has bloody output 200 cc today- we will continue to monitor for 24 hours in ICU Time Spent in Patient Care: Greater than 35 minutes (>than 50% of time spent in counselling and/or direct pt care on unit) . Critical Care Time: This patient has a high probability of? clinically significant, sudden or life threatening deterioration of the patient's (Hematologic, respiratory, renal,) systems required my full, direct attention, the highest level of physician preparedness for urgent intervention and personal management.? I managed/supervised life or organ supporting interventions that required frequent physician assessment.? I devoted my full attention in the ICU to the direct care of this patient for the period of time indicated above.? Time I spent with family or surrogate(s) is included only if the patient was incapable of providing necessary information or participating in decision making.? This time includes the following services provided: Telemetry review Mechanical Ventilation Hemodynamic interpretation, assessment and management Review and interpretation of CXR Review and interpretation of lab values Review and interpretation of microbiologic data and culture results Review of medications and administration Review and interpretation of Nutrition requirements and management Discussion of management with other consultants and services Clinical update to family members [x] Data and vital sign review and interpretation [x] Patient assessment, examination and intervention [x] Documentation [x] Medication orders and management Time spent for teaching as well as performing procedures are billed separately and is not included in this note ? Critical Care Time (min):74 Critical Care Time (min): 74 Coding Level of Care Code Acute Code for Chg Fwd Diagnoses Shock circulatory R57.9 Acute blood loss anemia D62 ZACK (acute kidney injury) N17.9 S/P spinal fusion Z98.1 Metabolic acidosis E87.20 Time Spent (min) 74
[2022-11-03 17:46] LABS: Alanine Aminotransferase 29 U/L (0-41); Albumin Level 2.5 g/dL (3.5-5.2); Alkaline Phosphatase 70 U/L (40-130); Aspartate Amino Transferase 40 U/L (0-40); Blood Urea Nitrogen 17 mg/dL (8-23); Calcium 7.6 mg/dL (8.5-10.5); Carbon Dioxide 30 mmol/L (22-29); Chloride 101 mmol/L (98-107); Creatinine Clr Calc Pharmacy 95.3165; Globulin 2.1 g/dL (1.3-4.6); Glomerular Filtration Rate 95.8 mL/min (90-130); Glucose 140 mg/dL (65-115); Osmolality Calculated 288 mOsm/kg (285-295); Sodium 137 mmol/L (136-145); Total Bilirubin 0.8 mg/dL (0.15-1.2); Total Protein 4.6 g/dL (6.6-8.7)
[2022-11-03] MEDS: docusate sodium 100 mg Capsule PO (18:12)
[2022-11-03] MEDS: morphine 4 mg/mL SDV 1 mL 2 MG IVP ×2 (19:15→23:35)
[2022-11-03 21:03] LABS: Glucose Point of Care 96 mg/dL (70-110)
[2022-11-03 21:29] LABS: Basophils % 0.2 %; Hematocrit 23.8 % (37-53); Lymphocytes # 1.6 10^3/uL (0.8-4.8); Lymphocytes % 10.6 %; Mean Corpuscular Hemoglobin 30.9 pg (27-33); Mean Corpuscular Volume 90.8 fl (82-101); Monocytes # 1.5 10^3/uL (0.2-0.9); Neutrophils % 78.5 %; Nucleated Red Blood Cells % 0 %; Platelet Count 117 10^3/cmm (157-399); Red Blood Count 2.62 10^6/uL (3.85-5.65); Red Cell Distribution Width 14.3 % (12.1-15.1); White Blood Count 15.16 10^3/uL (3.29-11.43)
[2022-11-03 21:33] LABS: Alanine Aminotransferase 26 U/L (0-41); Albumin Level 2.8 g/dL (3.5-5.2); Alkaline Phosphatase 64 U/L (40-130); Anion Gap 8.7 (5-19); Aspartate Amino Transferase 41 U/L (0-40); Blood Urea Nitrogen 19 mg/dL (8-23); Calcium 7.7 mg/dL (8.5-10.5); Carbon Dioxide 32 mmol/L (22-29); Chloride 102 mmol/L (98-107); Creatinine Clr Calc Pharmacy 95.3165; Globulin 1.8 g/dL (1.3-4.6); Glomerular Filtration Rate 95.8 mL/min (90-130); Glucose 118 mg/dL (65-115); Osmolality Calculated 291 mOsm/kg (285-295); Potassium 3.7 mmol/L (3.5-5.1); Sodium 139 mmol/L (136-145); Total Bilirubin 0.7 mg/dL (0.15-1.2); Total Protein 4.6 g/dL (6.6-8.7)
[2022-11-03 21:34] LABS: Lactate (Lactic Acid level) 1.6 mmol/L (0.5-2.2)
[2022-11-04] VITALS (48 sets, daily range): BP systolic 89–138; BP diastolic 51–94; PULSE 95–128; RESP 12–30; TEMP 36.1–36.6; O2SAT 88–97
--- NOTE | 2022-11-04 00:37 | PC.PHAR ---
Pharmacokinetic dosing service Date: 11/04/22 Time: 36 Objective: Patient: Marcos Marino Floor: ICU-9 Age: 71 yo Serum creatinine: 0.8 mg/dL Height: 68.0 Inches Weight (kg): 90.718 Diagnosis: Relevant medical/social history: Cultures and sensitivities: Other labs: Assessment: IBW (kg): 68.40 Dosing wt(kg): 90.718 Estimated Creatinine clearance (ml/min): 84.3 CRCL method: Cockcroft and Gault using ibw(default). Drug selected: Vancomycin Loading dose (mg): 0 Vd (liters): 81.6 (factor used: 0.9 L/kg) Tucker (hr-1): 0.074 Half life (hrs): 9.37 Recommended dose: 1500 mg Interval: 12 hrs Infusion time (hrs): 1.5 Predicted peak (mcg/mL): 29.6 Predicted trough (mcg/mL): 13.61 Total body weight is being used for vancomycin dosing. Renal function is stable [ ] /unstable [ ] Recommendations: Give Vancomycin 1500 mg q 12 hrs with an expected Cpeak of 29.6 mcg/ml and an expected Ctrough of 13.61 mcg/ml Renal dosing of other antibiotics (review renal dosing of other medications and list guidelines here): Thank you for the consult, will continue to follow. Signature: Molly Talbot [facility]
--- NOTE | 2022-11-04 00:55 | ECG_ITS ---
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 Measurements Intervals [place] Rate: 123 P: 59 SC: 162 QRS: -35 QRSD: 101 T: 70 QT: 323 QTc: 464 Interpretive Statements SINUS TACHYCARDIA LEFT AXIS DEVIATION [QRS AXIS < -30] NONSPECIFIC ST & T-WAVE ABNORMALITY Compared to ECG 01/20/2021 11:56:53 Left-axis deviation now present T-wave abnormality now present Sinus rhythm no longer present Ventricular premature complex(es) no longer present Electronically Signed On 11-04-2022 7:51:39 CDT by Jorje Ortiz M.D. [id number]
--- NOTE | 2022-11-04 01:26 | PC.NURSE ---
Addendum entered by Blanka Peguero RN 11/04/22 01:52: Witnessed waste of 110ml of Fentanyl and 38ml of Midazolam w/ Raffi Sutton RN. Original Note: Wasted 110ml of Fentanyl and 38mls of Midazolam with Blanka RN @ [phone]
[2022-11-04] MEDS: vancomycin 1,500 MG/300 ML PIGGYBACK 200 MG IV ×2 (01:32→13:04)
[2022-11-04] MEDS: piperacillin-tazobactam 3.375 GM in sodium chloride 0.9% (plus) 50 ML IV ×3 (01:33→19:00)
[2022-11-04 03:50] LABS: Glucose Point of Care 99 mg/dL (70-110)
[2022-11-04] MEDS: morphine 4 mg/mL SDV 1 mL 2 MG IVP (04:22)
[2022-11-04 04:57] LABS: Eosinophils % 0.3 %; Lymphocytes # 1.1 10^3/uL (0.8-4.8); Lymphocytes % 15.9 %; Mean Corpuscular HGB Conc 33.2 g/dL (30-55); Mean Corpuscular Hemoglobin 29.9 pg (27-33); Mean Corpuscular Volume 90.2 fl (82-101); Mean Platelet Volume 10.9 fL (7.4-10.4); Monocytes # 0.7 10^3/uL (0.2-0.9); Monocytes % 10.6 %; Neutrophils # 4.94 10^3/uL (1.8-7.7); Neutrophils % 72.5 %; Nucleated Red Blood Cells % 0 %; Platelet Count 65 10^3/cmm (157-399); Red Blood Count 2.44 10^6/uL (3.85-5.65); Red Cell Distribution Width 14.4 % (12.1-15.1); White Blood Count 6.81 10^3/uL (3.29-11.43)
[2022-11-04] MEDS: multivitamin therapeutic Tablet 1 TAB PO (05:07)
[2022-11-04] MEDS: hydrocortisone 100 mg/2 mL SDV IVP (05:07)
[2022-11-04 05:17] LABS: Alanine Aminotransferase 24 U/L (0-41); Albumin Level 2.7 g/dL (3.5-5.2); Alkaline Phosphatase 69 U/L (40-130); Anion Gap 7.8 (5-19); Aspartate Amino Transferase 40 U/L (0-40); Blood Urea Nitrogen 17 mg/dL (8-23); Calcium 7.6 mg/dL (8.5-10.5); Carbon Dioxide 34 mmol/L (22-29); Chloride 103 mmol/L (98-107); Creatinine Clr Calc Pharmacy 95.3165; Globulin 1.6 g/dL (1.3-4.6); Glomerular Filtration Rate 111.8 mL/min (90-130); Glucose 133 mg/dL (65-115); Osmolality Calculated 295 mOsm/kg (285-295); Potassium 3.8 mmol/L (3.5-5.1); Sodium 141 mmol/L (136-145); Total Bilirubin 0.5 mg/dL (0.15-1.2); Total Protein 4.3 g/dL (6.6-8.7)
--- NOTE | 2022-11-04 06:55 | P.PN_ITS ---
Subjective Subjective: POD 3 Patient is extubated. Very lightheaded weak dizzy. Does communicate slowly and follow commands. Vitals/I&O/Wt Last Vital Signs Temp 97 F L 11/04/22 05:00 Pulse 113 H 11/04/22 06:00 Resp 22 H 11/04/22 06:00 BP 98/61 11/04/22 06:00 Pulse Ox 97 11/04/22 06:00 O2 Del Method Nasal Cannula 11/04/22 06:00 O2 Flow Rate 2 11/04/22 06:00 FiO2 30 11/03/22 16:30 11/03/22 11/03/22 11/04/22 14:59 22:59 06:59 Intake Total 2169.718 / 2169.718 601.180 / 2770.898 488.732 / 3259.630 Output Total 900 / 900 600 / 1500 850 / 2350 Balance 1269.718 / 1269.718 1.180 / 1270.898 -361.268 / 909.630 Physical Exam Narrative: Patient presents alert and oriented x3 with a good general appearance normal mood and affect. Normal coordination normal stability. Mild tenderness around the incisional site with the incision appears to be clean and dry with Hemovac present. No signs of erythema or drainage. No signs of infection. Patient denies any fevers or chills. 4/5 motor strength both lower extremities, weak in left EHL and with dorsiflexion compared to the right. Negative straight leg raise bilaterally. Calves are supple no medial thigh tenderness. Pulses are 1+ at the dorsalis pedis and posterior tibial region. Good capillary refill thro ughout normal sensation light touch both lower extremities. Urinary Catheter Management: Fuller: Cath Placed During This Visit: yes Reason for Continuing Indwelling Catheter: Accurate Measurement of Urinary O utput in Critically Ill Patients Urinary Catheter Date of Insertion: 11/01/22 Urinary Catheter Time of Insertion: 10:30 Data 11/04/22 04:27 11/04/22 04:27 Micro: Microbiology 11/01/22 15:20 Gram Stain - Final Sputum - Endotracheal Tube Aspirate Sputum Culture - Final A&P Assessment and plan (1) Acute blood loss anemia: Patient is symptomatic due to acute blood loss anemia with a hemoglobin of 7.3 and would recommend at least 1 unit of packed red blood cells if not 2 we will leave it up to the medical team. Recommend discontinue of Hemovac drain. Physical therapy to evaluate and mobilizing to a chair today. If cleared by the medical team would like to get his Fuller catheter removed later today after the transfusion. Encourage incentive spirometry for pulmonary toilet. He was not able to tolerate hydrocodone in the past we will switch him to Percocet 5 1 to 2 tablets p.o. every 4-6 hours as needed pain. Abdominal binder can be open when laying flat in bed. He is high risk of bleeding therefore continue with SCDs for mechanical DVT prophylaxis. (2) S/P spinal fusion: Attestations Medical Necessity Statement*: defer to medical team Coding Level of Care Code Acute Code for Chg Fwd Diagnoses Acute blood loss anemia D62 S/P spinal fusion Z98.1
[2022-11-04 08:15] LABS: Glucose Point of Care 124 mg/dL (70-110)
[2022-11-04] MEDS: oxyCODONE-APAP 10-325 mg Tablet PO ×2 (08:50→16:08)
[2022-11-04] MEDS: sodium chloride 1 gm Tablet PO (08:51)
[2022-11-04] MEDS: BuSPIRONE 10 mg Tablet PO ×2 (08:51→18:59)
[2022-11-04] MEDS: ezetimibe 10 mg Tablet PO (08:52)
[2022-11-04] MEDS: docusate sodium 100 mg Capsule PO ×2 (08:52→18:59)
[2022-11-04] MEDS: levothyroxine 50 mcg Tablet PO (08:52)
[2022-11-04] MEDS: pantoprazole 40 mg SDV IVP (08:53)
[2022-11-04 10:16] LABS: INR 1.09 (0.8-1.2)
[2022-11-04 10:17] LABS: Fibrinogen 304 mg/dL (174-498); Partial Thromboplastin Time 28.6 SECONDS (23.9-36.7)
[2022-11-04 10:20] LABS: D Dimer 2.21 ug/mLFEU (0-0.59)
[2022-11-04 11:48] LABS: Glucose Point of Care 132 mg/dL (70-110)
[2022-11-04] MEDS: sodium chloride 0.9% 100 mL Bag 50 ML IV ×2 (12:10→12:34)
--- NOTE | 2022-11-04 12:15 | PC.NURSE ---
Hemovac drain removed intact. Surgical dressing removed to be changed Silvercel and island/cover dressing applied over drain area and incision. Incision well approximated. Pt tolerated all very well.
--- NOTE | 2022-11-04 12:42 | PC.NURSE ---
Blood transfusion VS: See vital sign flow sheet.
[2022-11-04] MEDS: alum-mag-hydroxide-sime 30 mL UDC PO (16:15)
--- NOTE | 2022-11-04 16:43 | PM.MISC ---
Miscellaneous Note Purpose of Documentation: Brief patient care update Note: I have evaluated Mr. Marino on a daily basis, at this point, I do not anticipate the need for surgery. Patient has been consistently improving, abdominal exam is pretty benign. He is acidosis has improved and his lactate level has come back to normal. All other care should be directed by primary team. General surgery remains available in the case of clinical deterioration.
[2022-11-04 18:30] LABS: Glucose Point of Care 104 mg/dL (70-110)
--- NOTE | 2022-11-04 18:50 | P.PN_ITS ---
Subjective Subjective: Off pressors now. Hemoglobin at 7.3. Will transfuse 1 packed red blood cell with a goal of hemoglobin of 8 given hemodynamic instability by way of persisting tachycardia. He was extubated yesterday, doing well from a respiratory standpoint. We will obtain swallow eval today and started diet if patient is able to swallow adequately. Dropping platelets today, check DIC panel Drain to be removed today per orthopedics White blood cell count has returned back to normal. Medications: Reviewed: Yes Vitals/I&O/Wt Last Vital Signs Temp 97.4 F L 11/04/22 15:49 Pulse 110 H 11/04/22 16:30 Resp 21 H 11/04/22 16:30 BP 110/78 11/04/22 16:30 Pulse Ox 95 11/04/22 16:30 O2 Del Method Nasal Cannula 11/04/22 16:30 O2 Flow Rate 2 11/04/22 16:30 FiO2 30 11/03/22 16:30 11/04/22 11/04/22 11/04/22 06:59 14:59 22:59 Intake Total 488.732 / 3259.630 94.450 / 94.450 300 / 394.450 Output Total 850 / 2350 Balance -361.268 / 909.630 94.450 / 94.450 300 / 394.450 Physical Exam Narrative: General: Awake alert and oriented HEENT: PERRLA, pupils bilaterally equal and reactive, pallors not present Chest: Normal vesicular breath sounds, no added sounds, equal good air entry bilaterally CVS: S1-S2 regular, no murmurs, no tachycardia, no gallops, no rubs Abdomen: Soft, nondistended, bowel sounds are present. No focal tenderness. Neuro: No focal deficits grossly Urinary Catheter Management: Fuller: Cath Placed During This Visit: yes Reason for Continuing Indwelling Catheter: Accurate Measurement of Urinary Output in Critically Ill Patients Urinary Catheter Date of Insertion: 11/01/22 Urinary Catheter Time of Insertion: 10:30 Data 11/04/22 04:27 11/04/22 04:27 Micro: Microbiology 11/01/22 15:20 Gram Stain - Final Sputum - Endotracheal Tube Aspirate Sputum Culture - Final A&P Assessment and plan (1) Hypotension: (2) Shock circulatory: (3) Status post lumbar laminectomy: (4) Acute blood loss anemia: (5) Metabolic acidosis: (6) Colitis: (7) ZACK (acute kidney injury): Plan 71-year-old male status post elective lumbar laminectomy on 11/01 with course complicated by acute blood loss estimated to be ~2500 cc, circulatory shock, acute kidney injury and ischemic colitis. #Circulatory shock Most likely related to acute blood loss and resulting hypotension from volume loss. Hemoglobin this morning at 7.3, transfuse 1 packed red blood cell with a goal to keep hemoglobin at 8. Patient is off pressors, hemodynamics appear to be improving. Platelet count is today low at 65, concern for possible DIC, check DIC panel. Lower possibility of septic shock as the primary inciting factor given that pat ient was asymptomatic prior to admission, rapid onset of symptoms after acute blood loss and timeline of events. Currently he is on broadened antibiotic coverage with piperacillin/tazobactam and vancomycin due to discovery of ischemic colitis on CAT scan and persistently elevated lactate. D/c stress dose steroids Appreciate critical care consult #Acute blood loss anemia Hemoglobin down to 7.3 today Transfusion with 1 packed red blood cell Goal hemoglobin at 8 #Acute kidney injury Suspected ATN from hypotension. Hold all potential nephrotoxins including lisinopril. Now resolved #Metabolic acidosis Related to tissue hypoperfusion Now resolved #Colitis on CT abdomen pelvis Suspect this to be ischemic colitis given profound hypotension and overall clinical chain of events. IV hydration as above, supportive management Speech and swallow eval, to start clears Abdomen exam is benign Patient not complaining of any abdominal pain Has not had any melena. Appreciate General surgery consult #Thrombocytopenia Unlikely HIT as he has not been receiving any heparin products Concern for DIC, check DIC panel for FDPs #Remains somewhat somnolent, intermittent confusion during the day. This may be related to sedatives that patient was on up until yesterday and critical care illness, however significant hypotension, cannot rule out potential anoxic injury, will check CT head. Additionally with following platelet count, would want to rule out potential intracranial bleeding with CT head #DVT prophylaxis: SCDs PUD prophylaxis: Protonix Full code Attestations Medical Necessity Statement*: Ongoing need to be monitored closely, transfuse 1 unit today, monitor hemodynamics, currently tachycardic, speech and swallow eval, slowly started diet, if stable in 24 hours can likely be moved out of the ICU Coding Level of Care Code Acute Code for Chg Fwd Diagnoses Hypotension I95.9 Shock circulatory R57.9 Status post lumbar laminectomy Z98.890 Acute blood loss anemia D62 Metabolic acidosis E87.20 Colitis K52.9 ZACK (acute kidney injury) N17.9
--- NOTE | 2022-11-04 19:49 | PC.NURSE ---
Dr. Mercado at bedside, patient assessed, verbal order given to notify Dr. Puentes of CBC results when available.
--- NOTE | 2022-11-04 20:05 | PC.NURSE ---
Shift summary: Pt alert and oriented. When tired he does repeat himself or ask questions which he immediately recognizes as being on the silly side. Incision well approximated. Drain removed today. He tolerated very well. he prefers the percocet for his pain, he has had 1 tab twice this shift for pain. He received a unit of PRBC today, for a Hgb of7.3, he tolerated this well. He had speech therapy eval and treat. Started on full liquid diet due to the transaminitis per Dr Rivas. He was eval and treated by PT today, he ws able to stand by the bed , he did have some dizziness, which resolved after he was lying in bed again. Blood sugars have been stable. VSS. afberile. Levophed stopped this am. Family very attentive and pleasant remained at bedside throughout shift. he had 1000ml of urine output. No Bm today. Aside from the incision , his skin is intact with no reddened areas noted.
[2022-11-04 20:27] LABS: Basophils % 0.1 %; Eosinophils % 0.5 %; Hematocrit 25.6 % (37-53); Lymphocytes # 1.3 10^3/uL (0.8-4.8); Lymphocytes % 15.5 %; Mean Corpuscular HGB Conc 32.8 g/dL (30-55); Mean Corpuscular Hemoglobin 29.9 pg (27-33); Mean Corpuscular Volume 91.1 fl (82-101); Mean Platelet Volume 10.7 fL (7.4-10.4); Monocytes # 0.7 10^3/uL (0.2-0.9); Neutrophils # 5.96 10^3/uL (1.8-7.7); Neutrophils % 73.9 %; Nucleated Red Blood Cells % 0 %; Platelet Count 84 10^3/cmm (157-399); Red Blood Count 2.81 10^6/uL (3.85-5.65); Red Cell Distribution Width 14.9 % (12.1-15.1); White Blood Count 8.07 10^3/uL (3.29-11.43)
[2022-11-04] MEDS: hyDROXYzine 25 mg Capsule PO (21:06)
--- NOTE | 2022-11-04 21:08 | PC.NURSE ---
Blood glucose 79, patient given OJ to drink.
--- NOTE | 2022-11-04 21:44 | CTR_ITS ---
PROCEDURE INFORMATION: Exam: CT Head Without Contrast Exam date and time: 11/04/2022 10:06 PM Age: 71 years old Clinical indication: Altered mental status/memory loss; Patient HX: New onset of unresponsiveness. Patient has been anemic due to lumbar surgery three days ago. ; Additional info: AMS TECHNIQUE: Imaging protocol: Computed tomography of the head without contrast. Radiation optimization: All CT scans at this facility use at least one of these dose optimization techniques: automated exposure control; mA and/or kV adjustment per patient size (includes targeted exams where dose is matched to clinical indication); or iterative reconstruction. REPORTING DATA: Count of CT and Cardiac NM exams in prior 12 months: This patient has received 2 known CTs and 0 known cardiac nuclear medicine studies in the 12 months prior to the current study. COMPARISON: No relevant prior studies available. RADIATION DOSE METRICS: Total DLP (mGy-cm): 214 FINDINGS: Brain: No acute infarct. No hemorrhage. Unremarkable white matter for age. No mass effect. Cerebral ventricles: No ventriculomegaly. Paranasal sinuses: No significant inflammation. No fluid levels. Mastoid air cells: Visualized mastoid air cells are well aerated. Bones/joints: Unremarkable. No acute fracture. Soft tissues: Unremarkable. CT/CT head wo con* [id number] IMPRESSION: No acute intracranial abnormality.
[2022-11-04 21:45] LABS: Glucose Point of Care 79 mg/dL (70-110)
--- NOTE | 2022-11-04 22:24 | P.PN_ITS ---
Subjective Subjective: No acute overnight events-patient is off pressors Hemoglobin 7.3 today morning-plan is to transfuse 1 unit repeat CBC 8.07/04 Decreasing output in MARGUERITE drain-removed by orthopedics today Drop in platelets to 65 K-evening CBC showed 84 K Other labs and imaging reviewed -Patient tolerated soft diet -Encourage bedside physical therapy Medications: Reviewed: Yes Vitals/I&O/Wt Last Vital Signs Temp 97.4 F L 11/04/22 20:00 Pulse 98 11/04/22 21:00 Resp 22 H 11/04/22 21:00 BP 119/59 11/04/22 21:00 Pulse Ox 94 11/04/22 21:00 O2 Del Method Room Air 11/04/22 21:00 O2 Flow Rate 2 11/04/22 19:00 FiO2 30 11/03/22 16:30 11/04/22 11/04/22 11/04/22 06:59 14:59 22:59 Intake Total 488.732 / 3259.630 94.450 / 94.450 600 / 694.450 Output Total 850 / 2350 1000 / 1000 Balance -361.268 / 909.630 94.450 / 94.450 -400 / -305.550 Physical Exam Narrative: PHYSICAL EXAM: General: Sitting in bed not in acute distress. HEENT:NCAT, PERRLA, EOMI Neck: Supple Lungs: Clear, Heart: s1/s2, RRR Abd: soft, NT, ND, BS + Normoactive Extremities: No edema RIVET SORTER: sedated and limited RIVET SORTER exam possible. SKIN: no rash Urinary Catheter Management: Fuller: Cath Placed During This Visit: yes Reason for Continuing Indwelling Catheter: Accurate Measurement of Urinary Output in Critically Ill Patients Urinary Catheter Date of Insertion: 11/01/22 Urinary Catheter Time of Insertion: 10:30 Data 11/04/22 20:00 11/04/22 04:27 Other Labs: Radiology Impressions Head CT 11/04/22 21:44 IMPRESSION: No acute intracranial abnormality. Laboratory Results WBC 8.07 10^3/uL (3.29-11.43) 11/04/22 20:00 RBC 2.81 10^6/uL (3.85-5.65) L 11/04/22 20:00 Hgb 8.40 g/dL (11.27-16.99) L 11/04/22 20:00 Hct 25.6 % (37-53) L 11/04/22 20:00 MCV 91.1 fl (82-101) 11/04/22 20:00 MCH 29.9 pg (27-33) 11/04/22 20:00 MCHC 32.8 g/dL (30-55) 11/04/22 20:00 RDW 14.9 % (12.1-15.1) 11/04/22 20:00 Plt Count 84 10^3/cmm (157-399) L 11/04/22 20:00 MPV 10.7 fL (7.4-10.4) H 11/04/22 20:00 Neut % (Auto) 73.9 % 11/04/22 20:00 Lymph % (Auto) 15.5 % 11/04/22 20:00 Webster % (Auto) 9.0 % 11/04/22 20:00 Eos % (Auto) 0.5 % 11/04/22 20:00 Baso % (Auto) 0.1 % 11/04/22 20:00 Neut # (Auto) 5.96 10^3/uL (1.8-7.7) 11/04/22 20:00 Lymph # (Auto) 1.3 10^3/uL (0.8-4.8) 11/04/22 20:00 Webster # (Auto) 0.7 10^3/uL (0.2-0.9) 11/04/22 20:00 Eos # (Auto) 0.0 10^3/uL (0.0-0.8) 11/04/22 20:00 Baso # (Auto) 0.0 10^3/uL (0.0-0.1) 11/04/22 20:00 Nucleated RBC % (auto) 0 % 11/04/22 20:00 Nucleated RBCs # 0.0 /100WBC 11/04/22 20:00 PT 14.50 SECONDS (12.1-14.9) 11/04/22 09:50 INR 1.09 (0.8-1.2) 11/04/22 09:50 APTT 28.6 SECONDS (23.9-36.7) 11/04/22 09:50 Fibrinogen 304 mg/dL (174-498) 11/04/22 09:50 Fibrin Degrad Products ug/mL (NEG) 11/04/22 09:50 D-Dimer 2.21 ug/mLFEU (0-0.59) H 11/04/22 09:50 Specimen Type Arterial 11/03/22 16:12 Sample Site Brachial, left 11/03/22 16:12 ABG pH 7.47 (7.35-7.45) H 11/03/22 16:12 ABG pCO2 42.8 mmHg (35-45) 11/03/22 16:12 ABG pO2 78.4 mmHg (80.0-100.0) L 11/03/22 16:12 ABG HCO3 31.1 mmol/L (22-26) H 11/03/22 16:12 ABG O2 Saturation 97.4 11/03/22 16:12 ABG Base Excess 6.8 mmol/L (-2.0-2.0) H 11/03/22 16:12 [place]racho Test Pos 11/03/22 16:12 A-a O2 Gradient 10.8 mmHg (5-10) H 11/03/22 16:12 Hematocrit 26.9 % (42-52) L 11/03/22 16:12 Hgb O2 Saturation 95.6 % (95-100) 11/03/22 16:12 Carboxyhemoglobin 1.3 %THgb (0.4-20.1) 11/03/22 16:12 Methemoglobin 0.6 % (0.4-1.5) 11/03/22 16:12 Total Hemoglobin 8.8 g/dL (14-18) L 11/03/22 16:12 Sodium 138.0 mmol/L (131-143) 11/03/22 16:12 Potassium 3.8 mmol/L (3.5-5.0) 11/03/22 16:12 Glucose 141.0 mg/dL (70-115) H 11/03/22 16:12 Ionized Calcium 1.1 mmol/L (1.1-1.4) 11/03/22 16:12 O2 Delivery Device Vent 11/03/22 16:12 FiO2 30.0 % 11/03/22 16:12 Tidal Volume 0.45 11/03/22 08:24 PEEP 5.0 cmH20 08/23/23 08:24 Carbonating Stone Cleaner ID Cak 11/03/22 16:12 Sodium 141 mmol/L (136-145) 11/04/22 04:27 Potassium 3.8 mmol/L (3.5-5.1) 11/04/22 04:27 Chloride 103 mmol/L (98-107) 11/04/22 04:27 Carbon Dioxide 34 mmol/L (22-29) H 11/04/22 04:27 Anion Gap 7.8 (5-19) 11/04/22 04:27 BUN 17 mg/dL (8-23) 11/04/22 04:27 Creatinine 0.7 mg/dL (0.7-1.2) 11/04/22 04:27 GFR Calculation 111.8 mL/min (90-130) 11/04/22 04:27 Glucose 133 mg/dL (65-115) H 11/04/22 04:27 POC Glucose 79 mg/dL (70-110) 11/04/22 20:58 Calculated Osmolality 295 mOsm/kg (285-295) 11/04/22 04:27 Lactic Acid 6.8 mmol/L (0.5-2.2) H* 11/02/22 08:07 Lactic Acid (Sepsis) 6.5 mmol/L (0.5-2.2) H* 11/02/22 10:57 Lactate 1.6 mmol/L (0.5-2.2) 11/03/22 20:26 Calcium 7.6 mg/dL (8.5-10.5) L 11/04/22 04:27 Total Bilirubin 0.5 mg/dL (0.15-1.2) 11/04/22 04:27 AST 40 U/L (0-40) 11/04/22 04:27 ALT 24 U/L (0-41) 11/04/22 04:27 Alkaline Phosphatase 69 U/L (40-130) 11/04/22 04:27 Troponin T Gen 5 ng/L 27 ng/L (0-15) H 11/02/22 14:35 Total Protein 4.3 g/dL (6.6-8.7) L 11/04/22 04:27 Albumin 2.7 g/dL (3.5-5.2) L 11/04/22 04:27 Globulin 1.6 g/dL (1.3-4.6) 11/04/22 04:27 TSH 1.15 uIU/mL (0.27-4.20) 11/02/22 14:35 Blood Type A Positive 11/04/22 07:48 Rho(D) Type Positive 11/04/22 07:48 Antibody Screen Negative 11/04/22 07:48 Crossmatch See Detail 11/04/22 07:48 A&P Assessment and plan (1) Shock circulatory: (2) Acute blood loss anemia: (3) ZACK (acute kidney injury): (4) S/P spinal fusion: (5) Metabolic acidosis: Plan 71 year old male with a past medical history of hypothyroidism, hypertension, Crohn's disease, who underwent elective T10-L5 S1 laminectomy with partial facetectomy and posterior fusion on 11/01/2022. #Circulatory shock secondary toBlood loss post laminectomy 11/01/2022-resolved -Currently off pressors -Reducing output on MARGUERITE drain-removed today; drop in H&H to 7.30/22-s/p 1 PRBC on 11/02/2022; second unit transfused today 11/03/2022; third unit transfused 11/05/19 23 -Closely monitor H&H and transfuse to keep saturation H&H close to 11/04 #Ventilator management-successfully extubated to nasal cannula 3 L -He was left intubated postoperatively due to poor GCS and mentation. -Extubated successfully on 11/03/2022 -Chest x-ray no acute changes -CT abdomen pelvis showed Small bilateral pleural effusions-patient has good urine output and lung sounds clear -ABG showed improvement in metabolic acidosis -Patient following commands off sedation-tolerated SBT-successfully extubated to 3 L nasal cannula #Acute kidney injury-likely secondary to hypovolemia due to blood loss -However creatinine seem to stabilize -We will continue pressor support to maintain MAP more than 65 and prevent further renal injury -We will monitor urine output and electrolytes #Concern for ischemic colitis causing metabolic acidosis -CT abdomen pelvis showed diffuse wall thickening involving cecum, ascending colon and transverse colon extending to splenic flexure-less descending colon has more normal appearance-most consistent with ischemic colitis in the setting of significant blood volume loss -General surgery consulted and currently recommended to monitor -There is no evidence of any bloody stool #S/p spinal fusion surgery 11/01/2022 -Followed by Dr. Byers spine surgeon -Patient is on [place]; as needed-no BM yet-patient on Colace 100 Mg p.o. twice daily #Leukocytosis -Patient started on vancomycin and Zosyn -Blood cultures pending ICU CHECKLIST: Problem list updated Verbal orders reviewed and signed Code Status: Full code Disposition: ICU Critically ill:Yes MD discussed with: Hospitalist, RN, RT Analgesia: [place] Glycemic Control: Insulin Nutrition: Soft diet and advance as tolerated Restraint Renewal (within 24 hrs): Yes Ulcer Prophylaxis: PPI Chemical Thromboprophylaxis: Prophylaxis: None as patient has bleeding Mechanical Thromboprophylaxis: SCDs Need for Fuller catheter: Yes for urine output Critical Care Time (No Overlap): 53 min At this point of time I am going to sign out-as I was consulted to help with e xtubation-patient is doing respiratory standpoint 24 hours postextubation.;- Please reconsult if necessary Patient next visit out of bed to chair and need aggressive physical therapy to prevent deconditioning Attestations Medical Necessity Statement*: Patient clinically improving-closely monitoring H&H Critical Care Time: The high probability of a clinically significant, sudden or life threatening deterioration of the patient's [pulmonary, hematology] system(s) required my full and direct attention, intervention and personal management. The critical care time is as shown. This time is in addition to time spent performing any reported procedures but includes the following: [x] Data and vital sign review and interpretation [x] Patient assessment, examination and intervention [x] Documentation [x] Medication orders and management Critical Care Time (min): 53 Coding Level of Care Code Acute Code for Chg Fwd Diagnoses Shock circulatory R57.9 Acute blood loss anemia D62 ZACK (acute kidney injury) N17.9 S/P spinal fusion Z98.1 Metabolic acidosis E87.20 Time Spent (min) 53
[2022-11-05] VITALS (34 sets, daily range): BP systolic 119–161; BP diastolic 63–97; PULSE 59–117; RESP 10–22; TEMP 36.5–36.7; O2SAT 93–100
[2022-11-05] MEDS: vancomycin 1,500 MG/300 ML PIGGYBACK 200 MG IV (00:47)
[2022-11-05] MEDS: piperacillin-tazobactam 3.375 GM in sodium chloride 0.9% (plus) 50 ML IV ×2 (00:52→08:29)
[2022-11-05] MEDS: oxyCODONE-APAP 10-325 mg Tablet PO (03:30)
[2022-11-05] MEDS: hydrocortisone 100 mg/2 mL SDV IVP (04:27)
[2022-11-05] MEDS: multivitamin therapeutic Tablet 1 TAB PO (05:27)
--- NOTE | 2022-11-05 05:48 | PC.NURSE ---
Patient pulled out Right upper arm PICC. 20G IV started to right hand. Unable to obtain 2nd IV. Notified Dr. Puentes, no further orders given.
[2022-11-05 05:53] LABS: Eosinophils # 0.1 10^3/uL (0.0-0.8); Hematocrit 26.9 % (37-53); Lymphocytes # 1.3 10^3/uL (0.8-4.8); Lymphocytes % 19.4 %; Mean Corpuscular HGB Conc 32.3 g/dL (30-55); Mean Corpuscular Hemoglobin 29.9 pg (27-33); Mean Corpuscular Volume 92.4 fl (82-101); Mean Platelet Volume 10.2 fL (7.4-10.4); Monocytes # 0.6 10^3/uL (0.2-0.9); Monocytes % 9.4 %; Neutrophils # 4.54 10^3/uL (1.8-7.7); Neutrophils % 68.7 %; Nucleated Red Blood Cells % 0 %; Platelet Count 79 10^3/cmm (157-399); Red Blood Count 2.91 10^6/uL (3.85-5.65); Red Cell Distribution Width 14.9 % (12.1-15.1)
[2022-11-05 06:11] LABS: Alanine Aminotransferase 24 U/L (0-41); Albumin Level 2.8 g/dL (3.5-5.2); Alkaline Phosphatase 84 U/L (40-130); Anion Gap 7.8 (5-19); Aspartate Amino Transferase 36 U/L (0-40); Blood Urea Nitrogen 13 mg/dL (8-23); Calcium 7.9 mg/dL (8.5-10.5); Carbon Dioxide 35 mmol/L (22-29); Chloride 101 mmol/L (98-107); Globulin 2.2 g/dL (1.3-4.6); Glomerular Filtration Rate 133.6 mL/min (90-130); Glucose 94 mg/dL (65-115); Osmolality Calculated 290 mOsm/kg (285-295); Potassium 3.8 mmol/L (3.5-5.1); Sodium 140 mmol/L (136-145); Total Bilirubin 0.6 mg/dL (0.15-1.2)
[2022-11-05 06:12] LABS: Creatinine Clr Calc Pharmacy 95.3165
[2022-11-05 08:00] LABS: Glucose Point of Care 94 mg/dL (70-110)
[2022-11-05] MEDS: ezetimibe 10 mg Tablet PO (08:28)
[2022-11-05] MEDS: levothyroxine 50 mcg Tablet PO (08:28)
[2022-11-05] MEDS: BuSPIRONE 10 mg Tablet PO ×2 (08:28→18:03)
[2022-11-05] MEDS: docusate sodium 100 mg Capsule PO ×2 (08:28→18:03)
[2022-11-05] MEDS: sodium chloride 1 gm Tablet PO (08:29)
[2022-11-05] MEDS: pantoprazole 40 mg SDV IVP (08:29)
--- NOTE | 2022-11-05 12:29 | PM.PN ---
Subjective Subjective: Patient is more alert today. At this point he is not complaining of any pain. Does get confused when he takes the Percocet. Vitals/I&O/Wt Last Vital Signs Temp 97.9 F 11/05/22 08:00 Pulse 104 H 11/05/22 10:00 Resp 19 H 11/05/22 10:00 BP 144/78 11/05/22 10:00 Pulse Ox 99 11/05/22 09:30 O2 Del Method Nasal Cannula 11/05/22 08:00 O2 Flow Rate 2 11/05/22 08:00 FiO2 30 11/03/22 16:30 11/04/22 11/05/22 11/05/22 22:59 06:59 14:59 Intake Total 800 / 894.450 600 / 1494.450 400 / 400 Output Total 1000 / 1000 1275 / 2275 100 / 100 Balance -200 / -105.550 -675 / -780.550 300 / 300 Physical Exam Narrative: 5 out of 5 strength bilateral lower extremities Urinary Catheter Management: Fuller: Cath Placed During This Visit: yes Reason for Continuing Indwelling Catheter: Accurate Measurement of Urinary Output in Critically Ill Patients Urinary Catheter Date of Insertion: 11/01/22 Urinary Catheter Time of Insertion: 10:30 Data 11/05/22 05:34 11/05/22 05:34 A&P Assessment and plan (1) S/P spinal fusion: Patient is status post lumbar fusion. At this point we will decrease dose of pain meds to help with confusion. Continue to monitor Attestations Medical Necessity Statement*: Continue to have low platelets Coding Level of Care Code Acute Code for Chg Fwd Diagnoses S/P spinal fusion Z98.1
[2022-11-05] MEDS: acetaminophen 325 mg Tablet 650 MG PO (12:35)
[2022-11-05 12:42] LABS: Glucose Point of Care 132 mg/dL (70-110)
[2022-11-05] MEDS: nicotine 14 mg Patch 1 PATCH TRANSDERMA (14:05)
[2022-11-05] MEDS: oxyCODONE-APAP 5-325 mg Tablet 1 TAB PO ×2 (14:49→19:53)
--- NOTE | 2022-11-05 16:15 | PM.PN ---
Subjective Subjective: Hemoglobin better today at 8.7. Platelets stable at 79,000. Slightly tachycardic but otherwise hemodynamically stable remains off pressors. Creatinine normalized 0.6. Mentation is slowly improving. Less confused more alert today. CT of the head performed last evening returned normal. Medications: Reviewed: Yes Vitals/I&O/Wt Last Vital Signs Temp 97.9 F 11/05/22 15:00 Pulse 107 H 11/05/22 15:00 Resp 17 11/05/22 15:00 BP 137/76 11/05/22 16:00 Pulse Ox 100 11/05/22 15:00 O2 Del Method Nasal Cannula 11/05/22 13:00 O2 Flow Rate 2 11/05/22 13:00 FiO2 30 11/03/22 16:30 11/05/22 11/05/22 11/05/22 06:59 14:59 22:59 Intake Total 600 / 1494.450 900 / 900 Output Total 1275 / 2275 525 / 525 Balance -675 / -780.550 375 / 375 Physical Exam Narrative: General: Awake alert and oriented HEENT: PERRLA, pupils bilaterally equal and reactive, pallors not present Chest: Normal vesicular breath sounds, no added sounds, equal good air entry bilaterally CVS: S1-S2 regular, no murmurs, no tachycardia, no gallops, no rubs Abdomen: Soft, nondistended, bowel sounds are present. No focal tenderness. Neuro: No focal deficits grossly Urinary Catheter Management: Fuller: Cath Placed During This Visit: yes Reason for Continuing Indwelling Catheter: Accurate Measurement of Urinary Output in Critically Ill Patients Urinary Catheter Date of Insertion: 11/01/22 Urinary Catheter Time of Insertion: 10:30 Data 11/05/22 05:34 11/05/22 05:34 A&P Assessment and plan (1) Hypotension: (2) Shock circulatory: (3) Status post lumbar laminectomy: (4) Acute blood loss anemia: (5) Metabolic acidosis: (6) Colitis: (7) ZACK (acute kidney injury): Plan 71-year-old male status post elective lumbar laminectomy on 11/01 with course complicated by acute blood loss estimated to be ~2500 cc, circulatory shock, acute kidney injury and ischemic colitis. #Circulatory shock, now resolved Most likely related to acute blood loss and resulting hypotension from volume loss. Patient is off pressors, hemodynamics now normal, move out of ICU today. Resume home dose of metoprolol given tachycardia, however would initiate at a lower dose of 12.5 mg p.o. twice daily and then uptitrate as tolerated. Lower possibility of septic shock as the primary inciting factor given that patient was asymptomatic prior to admission, rapid onset of symptoms after acute blood loss and timeline of events. Currently he is on antibiotic coverage due to discovery of ischemic colitis on CAT scan D/c stress dose steroids Appreciate critical care consult #Acute blood loss anemia Hemoglobin stable now at 8.7 Goal hemoglobin of 8 #Acute kidney injury, now resolved Suspected ATN from hypotension. Continue to hold lisinopril for now. #Metabolic acidosis Related to tissue hypoperfusion Now resolved #Colitis on CT abdomen pelvis Suspect this to be ischemic colitis given profound hypotension and overall clinical chain of events. IV hydration as above, supportive management, currently improving Mild abdominal pain, however able to tolerate p.o. intake. Currently on clears, advance diet as tolerated Change antibiotics to ciprofloxacin and Flagyl orally as patient has lost IV access, aim for a short 5 to 7-day course Appreciate General surgery consult #Thrombocytopenia Unlikely HIT as he has not been receiving any heparin products Normal fibrinogen and INR, less likely DIC. FDP pending. May be related to bone marrow suppression from acute illness. We will closely monitor. #Mentation now back at baseline. CT head normal. Reducing dose of Percocet today to see if may be potentially contributing to intermittent confusion Confusion may have additionally been related to high-dose steroids, now that steroids have been discontinued expect this to improve. #DVT prophylaxis: SCDs, will start heparin if thrombocytopenia remains stable over the next 24 hours PUD prophylaxis: Protonix Full code Transfer out of ICU Attestations Medical Necessity Statement*: Per admitting Coding Level of Care Code Acute Code for Chg Fwd Diagnoses Hypotension I95.9 Shock circulatory R57.9 Status post lumbar laminectomy Z98.890 Acute blood loss anemia D62 Metabolic acidosis E87.20 Colitis K52.9 ZACK (acute kidney injury) N17.9
--- NOTE | 2022-11-05 16:18 | PC.NURSE ---
Transferred patient to [facility] room 255. Report given to manisha mane. During morning in icu, patient got up to a chair, at least one person assist, but he is getting stronger. Dressing to back were dry and intact. Patient was alert, oriented to person, time, and situation, but not place, has some short term memory loss. Overall mental status is improving. Romero removed. No bowel movement this moring, but active bowel sounds and passing gas
[2022-11-05 17:05] LABS: Glucose Point of Care 164 mg/dL (70-110)
[2022-11-05] MEDS: insulin lispro 100 unit/1 mL SUBCUT (18:01)
[2022-11-05] MEDS: metoprolol tartrate 25 mg Tablet 12.5 MG PO (18:03)
[2022-11-05] MEDS: metroNIDAZOLE 500 MG Tablet PO (18:04)
[2022-11-05] MEDS: ciprofloxacin 500 mg Tablet PO (20:15)
[2022-11-05 21:13] LABS: Glucose Point of Care 74 mg/dL (70-110)
[2022-11-06] VITALS (15 sets, daily range): BP systolic 113–166; BP diastolic 69–84; PULSE 83–113; RESP 17–19; TEMP 36.1–37; O2SAT 90–97
[2022-11-06] MEDS: oxyCODONE-APAP 5-325 mg Tablet 1 TAB PO ×7 (03:02→23:06)
[2022-11-06 05:52] LABS: Basophils % 0.1 %; Eosinophils # 0.3 10^3/uL (0.0-0.8); Eosinophils % 3.6 %; Lymphocytes # 1.4 10^3/uL (0.8-4.8); Lymphocytes % 18.9 %; Mean Corpuscular HGB Conc 32.2 g/dL (30-55); Mean Corpuscular Hemoglobin 29.7 pg (27-33); Mean Corpuscular Volume 92.2 fl (82-101); Mean Platelet Volume 10.6 fL (7.4-10.4); Monocytes # 0.8 10^3/uL (0.2-0.9); Monocytes % 10.4 %; Neutrophils % 65.8 %; Nucleated Red Blood Cells % 0.4 %; Platelet Count 120 10^3/cmm (157-399); Red Blood Count 2.93 10^6/uL (3.85-5.65); Red Cell Distribution Width 14.6 % (12.1-15.1)
[2022-11-06 06:20] LABS: Alanine Aminotransferase 25 U/L (0-41); Albumin Level 2.7 g/dL (3.5-5.2); Alkaline Phosphatase 108 U/L (40-130); Anion Gap 8.4 (5-19); Aspartate Amino Transferase 35 U/L (0-40); Blood Urea Nitrogen 16 mg/dL (8-23); Carbon Dioxide 33 mmol/L (22-29); Chloride 97 mmol/L (98-107); Creatinine Clr Calc Pharmacy 95.3165; Globulin 2.2 g/dL (1.3-4.6); Glomerular Filtration Rate 133.6 mL/min (90-130); Glucose 97 mg/dL (65-115); Osmolality Calculated 281 mOsm/kg (285-295); Potassium 3.4 mmol/L (3.5-5.1); Sodium 135 mmol/L (136-145); Total Bilirubin 0.7 mg/dL (0.15-1.2); Total Protein 4.9 g/dL (6.6-8.7)
[2022-11-06 06:52] LABS: Glucose Point of Care 103 mg/dL (70-110)
[2022-11-06] MEDS: multivitamin therapeutic Tablet 1 TAB PO (07:04)
[2022-11-06] MEDS: metroNIDAZOLE 500 MG Tablet PO ×2 (08:09→17:04)
[2022-11-06] MEDS: pantoprazole DR 40 mg Tablet PO (08:09)
[2022-11-06] MEDS: nicotine 14 mg Patch 1 PATCH TRANSDERMA (08:09)
[2022-11-06] MEDS: triamcinolone 0.1% cream 15 gm 1 APPLIC TOPICAL (08:09)
[2022-11-06] MEDS: ciprofloxacin 500 mg Tablet PO ×2 (08:10→21:27)
[2022-11-06] MEDS: metoprolol tartrate 25 mg Tablet 12.5 MG PO (08:10)
[2022-11-06] MEDS: BuSPIRONE 10 mg Tablet PO ×2 (08:10→17:03)
[2022-11-06] MEDS: levothyroxine 50 mcg Tablet PO (08:10)
[2022-11-06] MEDS: docusate sodium 100 mg Capsule PO ×2 (08:10→17:04)
[2022-11-06] MEDS: sodium chloride 1 gm Tablet PO (08:11)
[2022-11-06] MEDS: ezetimibe 10 mg Tablet PO (08:11)
--- NOTE | 2022-11-06 10:46 | P.DS_ITS ---
Discharge Providers Date of Admission: 11/01/22 13:52 Date of Discharge: November 06, 2022 Attending Provider at Admission: Julian Byers DO Attending Provider at Discharge: Julian Byers DO Primary Care Provider: SHREE Ackerman Diagnoses at Discharge Discharge Diagnosis (1) Hypotension: Status: Acute (2) Shock circulatory: Status: Acute (3) Status post lumbar laminectomy: Status: Acute (4) Acute blood loss anemia: Status: Acute (5) Metabolic acidosis: Status: Acute (6) Colitis: Status: Acute (7) ZACK (acute kidney injury): Status: Acute Reason for Visit Reason for Visit: M48.062 Physical Exam Narrative: On physical exam today patient is sitting up comfortable pelvis 5 strength complaining of hip pain more in the right groin. Urinary Catheter Management: Fuller: Cath Placed During This Visit: yes Reason for Continuing Indwelling Catheter: Accurate Measurement of Urinary Output in Critically Ill Patients Urinary Catheter Date of Insertion: 11/01/22 Urinary Catheter Time of Insertion: 10:30 Discharge Data Studies Completed and Pending Completed Studies During Hospitalization Category Date Time Status CT abdomen pelvis wo con [id number] Stat Cat Scan 11/02/22 10:[address] head wo con* [id number] Routine Cat Scan 11/04/22 21:44 Completed CXRP [XR chest 1V portable [id number]] Routine Exams 11/02/22 09:14 Completed XR chest 1V portable [id number] Routine Exams 11/03/22 08:17 Completed XR chest 1V portable [id number] Stat Exams 11/01/22 21:25 Completed XR chest 1V portable [id number] Stat Exams 11/02/22 11:29 Completed XR lumbar spine 2-3V* [id number] Routine Exams 11/01/22 Completed CV. echo complete* [id number] Routine Ultrasound 11/02/22 15:04 Completed Pending at discharge Category Date Time Status Blood Culture Stat Lab 11/01/22 22:08 Results Fibrinogen Degradation Product Routine Lab 11/04/22 09:50 Received Radiology Impressions Head CT 11/04/22 21:44 IMPRESSION: No acute intracranial abnormality. Laboratory Results WBC 7.30 10^3/uL (3.29-11.43) 11/06/22 05:04 RBC 2.93 10^6/uL (3.85-5.65) L 11/06/22 05:04 Hgb 8.70 g/dL (11.27-16.99) L 11/06/22 05:04 Hct 27.0 % (37-53) L 11/06/22 05:04 MCV 92.2 fl (82-101) 11/06/22 05:04 MCH 29.7 pg (27-33) 11/06/22 05:04 MCHC 32.2 g/dL (30-55) 11/06/22 05:04 RDW 14.6 % (12.1-15.1) 11/06/22 05:04 Plt Count 120 10^3/cmm (157-399) L D 11/06/22 05:04 MPV 10.6 fL (7.4-10.4) H 11/06/22 05:04 Neut % (Auto) 65.8 % 11/06/22 05:04 Lymph % (Auto) 18.9 % 11/06/22 05:04 Stewart % (Auto) 10.4 % 11/06/22 05:04 Eos % (Auto) 3.6 % 11/06/22 05:04 Baso % (Auto) 0.1 % 11/06/22 05:04 Neut # (Auto) 4.80 10^3/uL (1.8-7.7) 11/06/22 05:04 Lymph # (Auto) 1.4 10^3/uL (0.8-4.8) 11/06/22 05:04 Stewart # (Auto) 0.8 10^3/uL (0.2-0.9) 11/06/22 05:04 Eos # (Auto) 0.3 10^3/uL (0.0-0.8) 11/06/22 05:04 Baso # (Auto) 0.0 10^3/uL (0.0-0.1) 11/06/22 05:04 Nucleated RBC % (auto) 0.4 % 11/06/22 05:04 Nucleated RBCs # 0.0 /100WBC 11/06/22 05:04 PT 14.50 SECONDS (12.1-14.9) 11/04/22 09:50 INR 1.09 (0.8-1.2) 11/04/22 09:50 APTT 28.6 SECONDS (23.9-36.7) 11/04/22 09:50 Fibrinogen 304 mg/dL (174-498) 11/04/22 09:50 Fibrin Degrad Products ug/mL (NEG) 11/04/22 09:50 D-Dimer 2.21 ug/mLFEU (0-0.59) H 11/04/22 09:50 Specimen Type Arterial 11/03/22 16:12 Sample Site Brachial, left 11/03/22 16:12 ABG pH 7.47 (7.35-7.45) H 11/03/22 16:12 ABG pCO2 42.8 mmHg (35-45) 11/03/22 16:12 ABG pO2 78.4 mmHg (80.0-100.0) L 11/03/22 16:12 ABG HCO3 31.1 mmol/L (22-26) H 11/03/22 16:12 ABG O2 Saturation 97.4 11/03/22 16:12 ABG Base Excess 6.8 mmol/L (-2.0-2.0) H 11/03/22 16:12 Catracho Test Pos 11/03/22 16:12 A-a O2 Gradient 10.8 mmHg (5-10) H 11/03/22 16:12 Hematocrit 26.9 % (42-52) L 11/03/22 16:12 Hgb O2 Saturation 95.6 % (95-100) 11/03/22 16:12 Carboxyhemoglobin 1.3 %THgb (0.4-20.1) 11/03/22 16:12 Methemoglobin 0.6 % (0.4-1.5) 11/03/22 16:12 Total Hemoglobin 8.8 g/dL (14-18) L 11/03/22 16:12 Sodium 138.0 mmol/L (131-143) 11/03/22 16:12 Potassium 3.8 mmol/L (3.5-5.0) 11/03/22 16:12 Glucose 141.0 mg/dL (70-115) H 11/03/22 16:12 Ionized Calcium 1.1 mmol/L (1.1-1.4) 11/03/22 16:12 O2 Delivery Device Vent 11/03/22 16:12 FiO2 30.0 % 11/03/22 16:12 Tidal Volume 0.45 11/03/22 08:24 PEEP 5.0 cmH20 11/03/22 08:24 Graphic Arts Instructor ID Cak 11/03/22 16:12 Sodium 135 mmol/L (136-145) L 11/06/22 05:04 Potassium 3.4 mmol/L (3.5-5.1) L 11/06/22 05:04 Chloride 97 mmol/L (98-107) L 11/06/22 05:04 Carbon Dioxide 33 mmol/L (22-29) H 11/06/22 05:04 Anion Gap 8.4 (5-19) 11/06/22 05:04 BUN 16 mg/dL (8-23) 11/06/22 05:04 Creatinine 0.6 mg/dL (0.7-1.2) L 11/06/22 05:04 GFR Calculation 133.6 mL/min (90-130) H 11/06/22 05:04 Glucose 97 mg/dL (65-115) 11/06/22 05:04 POC Glucose 103 mg/dL (70-110) 11/06/22 06:48 Calculated Osmolality 281 mOsm/kg (285-295) L 11/06/22 05:04 Lactic Acid 6.8 mmol/L (0.5-2.2) H* 11/02/22 08:07 Lactic Acid (Sepsis) 6.5 mmol/L (0.5-2.2) H* 11/02/22 10:57 Lactate 1.6 mmol/L (0.5-2.2) 11/03/22 20:26 Calcium 8.0 mg/dL (8.5-10.5) L 11/06/22 05:04 Total Bilirubin 0.7 mg/dL (0.15-1.2) 11/06/22 05:04 AST 35 U/L (0-40) 11/06/22 05:04 ALT 25 U/L (0-41) 11/06/22 05:04 Alkaline Phosphatase 108 U/L (40-130) 11/06/22 05:04 Troponin T Gen 5 ng/L 27 ng/L (0-15) H 11/02/22 14:35 Total Protein 4.9 g/dL (6.6-8.7) L 11/06/22 05:04 Albumin 2.7 g/dL (3.5-5.2) L 11/06/22 05:04 Globulin 2.2 g/dL (1.3-4.6) 11/06/22 05:04 TSH 1.15 uIU/mL (0.27-4.20) 11/02/22 14:35 Blood Type A Positive 11/04/22 07:48 Rho(D) Type Positive 11/04/22 07:48 Antibody Screen Negative 11/04/22 07:48 Crossmatch See Detail 11/04/22 07:48 Vitals Last Vital Signs Temp 98.5 F 11/06/22 08:00 Pulse 113 H 11/06/22 08:00 Resp 18 11/06/22 08:35 BP 119/71 11/06/22 08:00 Pulse Ox 93 11/06/22 08:00 O2 Del Method Room Air 11/06/22 08:00 O2 Flow Rate 2 11/05/22 20:32 FiO2 30 11/03/22 16:30 Discharge Plan Discharge Condition: Stable Prescriptions: New (DME) Intraoperative Neurophysiological Testing See Rx Instructions .Route .MEDSUPPLY Qty: 1 0RF Rx Instructions: As directed oxycodone-acetaminophen 5-325 mg tablet 1 - 2 tab PO Q4H PRN (Reason: pain) 7 Days Qty: 40 0RF Continued aspirin 81 mg tablet,delayed release (DR/EC) 81 mg PO DAILY multivitamin [Multiple Vitamins] Tablet 1 tab PO QAM triamcinolone acetonide 0.1 % cream 1 applic TOPICAL BID Qty: 80 0RF levothyroxine 50 mcg tablet 50 mcg PO DAILY Qty: 90 0RF buspirone 10 mg tablet See Rx Instructions .ROUTE .COMPLEX Qty: 180 1RF Dose Instruction: Take 1 tablet by mouth twice daily Rx Instructions: Take 1 tablet by mouth twice daily metoprolol tartrate 50 mg tablet 50 mg PO BID Qty: 180 1RF cyclobenzaprine 5 mg tablet 5 mg PO TID PRN (Reason: muscle spasm) Qty: 60 1RF Rx Instructions: one tab by mouth every 8 hours as needed for muscle spasm ondansetron 4 mg tablet,disintegrating See Rx Instructions .ROUTE .COMPLEX Qty: 30 0RF Dose Instruction: DISSOLVE 1 TABLET IN MOUTH TWICE DAILY NEEDED FOR NAUSEA AND VOMITING Rx Instructions: DISSOLVE 1 TABLET IN MOUTH TWICE DAILY NEEDED FOR NAUSEA AND VOMITING ezetimibe [Zetia] 10 mg tablet 10 mg PO DAILY Qty: 90 0RF sodium chloride 1,000 mg tablet,soluble See Rx Instructions .ROUTE .COMPLEX Qty: 90 0RF Dose Instruction: Take 1 tablet by mouth once daily Rx Instructions: Take 1 tablet by mouth once daily lisinopril 40 mg tablet 40 mg PO DAILY Rx Instructions: Take 1 tablet by mouth once daily Discharge Orders: Discharge Order (Routine); Ordered 11/06/22 Ordered By: Julian Byers Discharge Diet: Advance as tolerated Discharge Activity: Limit activity as instructed Patient Instructions: Opioid Safety Activity Restrictions/Additional Instructions: Thank you for [facility] for your care! The following is a list of instructions, from your provider, to follow upon your discharge to ensure you have the optimal recovery from your recent injury orsurgery. Follow-up care is a steele part of your treatment and safety. Be sure to make and go to all appointments, and call your doctor if you are having problems. If you do not already have a follow-up appointment made, call Dr. Byers office in the next 1-3 days to make follow up appointment for 1 weeks at [phone]. It is also a good idea to know your test results and keep a list of the medicines you take. Medications will be prescribed for you at your provider's discretion. These medications are to be used as instructed; if they are taken more often that prescribed they will not be refilled early and in most cases will not be refilled at all. > When a refill is needed,you should contact ester pink 2-3 business days before your prescription runs out. Medications will NOT be refilled by senior production manager providers after hours! > Many pain medications contain Tylenol (Acetaminophen). Do not consume more than 4,000 mg of Tylenol per day in total with any combination ofmedications. > Pain medications can cause constipation. Please use an over the counter stool softener as directed, while taking pain medications. Consulty our local pharmacist with questions or recommendations on stool softeners. If constipation persists, contact our office or your primary care provider. > While under our care,you are not to receive pain medications or other controlled substances from any other provider unless our office is notified and approves. Any attempts to do so will result in refusal to prescribe any further pain medications and possible dismissal from our practice. ? ? Showering is permitted, however we ask that you do not take a bath, sit in a whirlpool / Jacuzzi, or go swimming for 1 month. For only the first 2 days after surgery, lt wilt be necessary for you to cover your wound/dressing with plastic and tape to keep it dry. ? Walking is essential for the healing process after surgery. We would like you to slowly advance your walking. This should be done on relatively flat clear ground (inside or out) or can be done on a treadmill. Remember this goal does not have to happen all at once, slowly increase your distance and duration. This can be broken into more more than one walk per day as tolerated. Patients who walk as directed after surgery rarely require Physical Therapy. In the unlikely event this issue arises your provider will direct hospital staff to make the appropriate arrangements. ? No lifting over 5 pounds {a gallon of milk) or bending/twisting until further notice. Each of these activities places an unnecessary amount of stress onto the body and can impede the delicate healing process. > Instead of bending at the waist, keep your back straight and bend at the knees. > Instead of twisting your torso, keep your back straight and turn your entire body with your feet. ? You may sleep in any position which makes you comfortable. Many patients find comfort sleeping in a reclining chair. It is not abnormal to have difficulty sleeping for the first several weeks following your surgery. We recommend trying Benadry! or Tylenol PM as directed to help with your sleeping difficulties. Both medications are over the counter and available withoutprescription. ? NO SMOKING!!! Smoking dramatically increases the probability of developing postoperative wound infections. ? Common complaints after lumbar and/or thoracic spine surgery include, but are not limited to: numbness and/or tingling in the legs, pain around the incision and surrounding tissues, muscle spasms, or stiffness of the middle to low back. Contact our office if these symptoms persist or if an acute change occurs. ? No driving for the first 3-5days, and not while taking narcotics u ntil seen at your follow-up appointment and cleared. There are no restrictions for riding on short trips, however if you take a longer trip, arrangements should be made to make regular stops to get out of the vehicle and stretch . ? Swelling is an unfortunate event that will take place with any surgery and is the primary source of your postoperative discomfort. While walking and regular approved activities helps control inflammation, there are additional steps you can take to minimizeswelling. > Place ice over the surgical site and surrounding tissue for twenty minutes, followed by applying a low/medium heat (heating pad) for an additional twenty minutes every 1-2 hours as needed for painrelief. > You may use of over the counter anti-inflammatory medications (Ibuprofen, Motrin, Aleve, Advil, etc) as directed on the package label. These types of medicines wm significantly reduce the amount of discomfort you experience after surgery from swelling. It should be noted that if you have and allergy to any of these medications, or a history of ulcers or kidney disease you should consult you primary care provider prior to starting these medications. Discharge Attestations Time Spent in Discharge Care*: less than 30 min Quality Metrics Clinical Quality Measures [ No reported AMI, CVA or VTE this stay] Coding Level of Care Code Acute Code for Chg Fwd Diagnoses Hypotension I95.9 Shock circulatory R57.9 Status post lumbar laminectomy Z98.890 Acute blood loss anemia D62 Metabolic acidosis E87.20 Colitis K52.9 ZACK (acute kidney injury) N17.9
[2022-11-06 11:17] LABS: Glucose Point of Care 99 mg/dL (70-110)
[2022-11-06] MEDS: potassium chloride ER 20 mEq Tablet 40 MEQ PO (12:36)
[2022-11-06] MEDS: heparin 5,000 unit/mL INJ 1 mL 5000 UNIT SUBCUT ×2 (14:06→21:27)
--- NOTE | 2022-11-06 15:52 | P.PN_ITS ---
Subjective Subjective: Hemoglobin stable at 8.7. Platelet count is now improving at 120. He remains afebrile and hemodynamically stable. Heart rate still ranging between 90 to 120 bpm. Blood pressure stable. Patient's baseline is at mentation, as confirmed by multiple family members at bedside. Continues to participate with physical therapy.Tolerating a regular diet. No abdominal pain. Had constipated bowel m ovement today,Passing flatus. Medications: Reviewed: Yes Vitals/I&O/Wt Last Vital Signs Temp 97.0 F L 11/06/22 11:43 Pulse 100 11/06/22 13:10 Resp 18 11/06/22 12:36 BP 113/69 11/06/22 11:43 Pulse Ox 97 11/06/22 13:10 O2 Del Method Room Air 11/06/22 13:10 O2 Flow Rate 2 11/06/22 08:00 FiO2 30 11/03/22 16:30 11/06/22 11/06/22 11/06/22 06:59 14:59 22:59 Intake Total 960 / 960 Balance 960 / 960 Physical Exam Narrative: General: Awake alert and oriented HEENT: PERRLA, pupils bilaterally equal and reactive, pallors not present Chest: Normal vesicular breath sounds, no added sounds, equal good air entry bilaterally CVS: S1-S2 regular, no murmurs, no tachycardia, no gallops, no rubs Abdomen: Soft, nondistended, bowel sounds are present. No focal tenderness. Neuro: No focal deficits grossly Urinary Catheter Management: Fuller: Cath Placed During This Visit: yes Reason for Continuing Indwelling Catheter: Accurate Measurement of Urinary Output in Critically Ill Patients Urinary Catheter Date of Insertion: 11/01/22 Urinary Catheter Time of Insertion: 10:30 Data 11/06/22 05:04 11/06/22 05:04 A&P Assessment and plan (1) Hypotension: (2) Shock circulatory: (3) Status post lumbar laminectomy: (4) Acute blood loss anemia: (5) Metabolic acidosis: (6) Colitis: (7) ZACK (acute kidney injury): Plan 71-year-old male status post elective lumbar laminectomy on 11/01 with course complicated by acute blood loss estimated to be ~2500 cc, circulatory shock, acute kidney injury and ischemic colitis. #Circulatory shock, now resolved Most likely related to acute blood loss and resulting hypotension from volume loss. Patient is off pressors, hemodynamics now normal Lower possibility of septic shock as the primary inciting factor given that patient was asymptomatic prior to admission, rapid onset of symptoms after acute blood loss and timeline of events. Currently he is on antibiotic coverage due to discovery of ischemic colitis on CAT scan, anticipate discontinuing and antibiotics at discharge is clinically doing well. #Acute blood loss anemia Hemoglobin stable now at 8.7, status post packed red blood cell transfusion during course of admission. Goal hemoglobin of 8 #Acute kidney injury, now resolved Suspected ATN from hypotension. Continue to hold lisinopril for now to allow room for blood pressure to uptitrate metoprolol. #Colitis on CT abdomen pelvis Suspect this to be ischemic colitis given profound hypotension and overall clinical chain of events. Patient is currently tolerating a regular diet. Denies any abdominal pain. Ischemic colitis appears to be resolving. Discontinue antibiotics at discharge. Add laxatives patient Britni's Appreciate General surgery consult #Thrombocytopenia Unlikely HIT as he has not been receiving any heparin products Normal fibrinogen and INR, less likely DIC. FDP pending. May be related to bone marrow suppression from acute illness. Thrombocytopenia is now improving. Platelet count at 120, start DVT prophylaxis with heparin. #Mentation now back at baseline. CT head normal. #Sinus tachycardia, related to holding beta-blockers during admission. Increase metoprolol from 12.5 mg p.o. twice daily to 25 mg p.o. twice daily. If blood pressure tolerates will likely resume home dose of 50 mg p.o. twice daily at the time of discharge. #DVT prophylaxis: Started on heparin PUD prophylaxis: Protonix Full code will be okay for discharge from a medicine standpoint if hemoglobin and platelet count remains stable over the next 24 hours. Attestations Medical Necessity Statement*: Per admitting Coding Level of Care Code Acute Code for Chg Fwd Diagnoses Hypotension I95.9 Shock circulatory R57.9 Status post lumbar laminectomy Z98.890 Acute blood loss anemia D62 Metabolic acidosis E87.20 Colitis K52.9 ZACK (acute kidney injury) N17.9
[2022-11-06] MEDS: metoprolol tartrate 25 mg Tablet PO (17:04)
[2022-11-06 17:16] LABS: Glucose Point of Care 96 mg/dL (70-110)
[2022-11-06 21:19] LABS: Glucose Point of Care 100 mg/dL (70-110)
[2022-11-07] VITALS (7 sets, daily range): BP systolic 115–146; BP diastolic 67–77; PULSE 90–105; RESP 17–18; TEMP 36.7–36.9; O2SAT 91–94
[2022-11-07] MEDS: acetaminophen 325 mg Tablet 650 MG PO (02:07)
[2022-11-07] MEDS: oxyCODONE-APAP 5-325 mg Tablet PO ×3 (03:25→11:42)
[2022-11-07] MEDS: multivitamin therapeutic Tablet 1 TAB PO (05:35)
[2022-11-07] MEDS: heparin 5,000 unit/mL INJ 1 mL 5000 UNIT SUBCUT (05:35)
[2022-11-07 05:46] LABS: Basophils % 0.2 %; Eosinophils # 0.3 10^3/uL (0.0-0.8); Eosinophils % 4.9 %; Lymphocytes # 1.2 10^3/uL (0.8-4.8); Lymphocytes % 20.7 %; Mean Corpuscular HGB Conc 33.6 g/dL (30-55); Mean Corpuscular Hemoglobin 30.9 pg (27-33); Mean Corpuscular Volume 91.9 fl (82-101); Mean Platelet Volume 10.5 fL (7.4-10.4); Monocytes # 0.8 10^3/uL (0.2-0.9); Monocytes % 14.7 %; Neutrophils # 3.18 10^3/uL (1.8-7.7); Neutrophils % 57.2 %; Nucleated Red Blood Cells % 0.4 %; Platelet Count 124 10^3/cmm (157-399); Red Blood Count 2.72 10^6/uL (3.85-5.65); Red Cell Distribution Width 14.6 % (12.1-15.1); White Blood Count 5.56 10^3/uL (3.29-11.43)
[2022-11-07 06:44] LABS: Glucose Point of Care 108 mg/dL (70-110)
[2022-11-07] MEDS: ezetimibe 10 mg Tablet PO (07:32)
[2022-11-07] MEDS: ciprofloxacin 500 mg Tablet PO (07:34)
[2022-11-07] MEDS: nicotine 14 mg Patch 1 PATCH TRANSDERMA (07:34)
[2022-11-07] MEDS: pantoprazole DR 40 mg Tablet PO (07:34)
[2022-11-07] MEDS: sennosides-docusate Tablet 1 TAB PO (07:35)
[2022-11-07] MEDS: levothyroxine 50 mcg Tablet PO (07:35)
[2022-11-07] MEDS: metoprolol tartrate 25 mg Tablet PO (07:35)
[2022-11-07] MEDS: metroNIDAZOLE 500 MG Tablet PO (07:35)
[2022-11-07] MEDS: sodium chloride 1 gm Tablet PO (07:36)
[2022-11-07] MEDS: BuSPIRONE 10 mg Tablet PO (07:36)
--- NOTE | 2022-11-07 18:01 | PM.PN ---
Subjective Subjective: Hemoglobin stable, platelets continue to improve currently at 124, hemodynamically stable, afebrile, ambulating independently up to 95 feet. Medications: Reviewed: Yes Vitals/I&O/Wt Last Vital Signs Temp 98.0 F 11/07/22 12:02 Pulse 90 11/07/22 12:02 Resp 17 11/07/22 12:02 BP 146/73 11/07/22 12:02 Pulse Ox 94 11/07/22 12:02 O2 Del Method Room Air 11/07/22 11:26 O2 Flow Rate 2 11/06/22 08:00 FiO2 30 11/03/22 16:30 Physical Exam Narrative: General: Awake alert and oriented HEENT: PERRLA, pupils bilaterally equal and reactive, pallors not present Chest: Normal vesicular breath sounds, no added sounds, equal good air entry bilaterally CVS: S1-S2 regular, no murmurs, no tachycardia, no gallops, no rubs Abdomen: Soft, nondistended, bowel sounds are present. No focal tenderness. Neuro: No focal deficits grossly Urinary Catheter Management: Fuller: Cath Placed During This Visit: yes Reason for Continuing Indwelling Catheter: Accurate Measurement of Urinary Output in Critically Ill Patients Urinary Catheter Date of Insertion: 11/01/22 Urinary Catheter Time of Insertion: 10:30 Data 11/07/22 05:02 11/06/22 05:04 Micro: Microbiology 11/02/22 00:00 Blood Culture - Final Blood NO GROWTH AFTER 5 DAYS 11/02/22 00:00 Blood Culture - Final Blood NO GROWTH AFTER 5 DAYS A&P Assessment and plan (1) Hypotension: (2) Shock circulatory: (3) Status post lumbar laminectomy: (4) Acute blood loss anemia: (5) Metabolic acidosis: (6) Colitis: (7) ZACK (acute kidney injury): Plan #Circulatory shock, now resolved Most likely related to acute blood loss and resulting hypotension from volume loss. #Acute blood loss anemia Hemoglobin stable now at 8.4 #Acute kidney injury, now resolved Suspected ATN from hypotension. Continue to hold lisinopril at discharge as BP well controlled off this medication #Metabolic acidosis Related to tissue hypoperfusion Now resolved #Colitis on CT abdomen pelvis Suspect this to be ischemic colitis given profound hypotension and overall clinical chain of events. improved with IV hydration as above, supportive management, tolerating po intake Discontinue ciprofloxacin and Flagyl #Thrombocytopenia Now improving #Mentation now back at baseline. # resume metropolol at discharge, dose reduced to 25 BID maintain BP chart at home, take to PCP for review Attestations Medical Necessity Statement*: per admitting, okay for discharge today Coding Level of Care Code Acute Code for Chg Fwd Diagnoses Hypotension I95.9 Shock circulatory R57.9 Status post lumbar laminectomy Z98.890 Acute blood loss anemia D62 Metabolic acidosis E87.20 Colitis K52.9 ZACK (acute kidney injury) N17.9
[2022-11-11 06:59] LABS: Fibrinogen Degradation Product 5 mcg/mL (LESS THAN 5)
== END 2022-11-07 12:16 | disposition home or self-care (01) | DRG 453 ==
LOC: ICU 13:52 → MEDSURG 11-05 15:58
PROVIDERS: Hospitalist; Internal Medicine; Internal Medicine Pulmonary Disease; Student in an Organized Health Care Education/Training Program; Admitting Provider Orthopaedic Surgery; PCP Nurse Practitioner Family; Visit Provider Orthopaedic Surgery
PROC: 0RG7071 Fusion of 2 to 7 Thoracic Vertebral Joints with Autologous Tissue Substitute, Posterior Approach, Posterior Column, Open Approach (ICD-10-PCS; CPT 22612; principal; 2022-11-01 10:00)
DX: M48.062 Spinal stenosis, lumbar region with neurogenic claudication (principal); T81.19XA Other postprocedural shock, initial encounter; K50.90 Crohn's disease, unspecified, without complications; D62 Acute posthemorrhagic anemia; E87.20 Acidosis, unspecified; K55.9 Vascular disorder of intestine, unspecified; E66.01 Morbid (severe) obesity due to excess calories; Z68.30 Body mass index [BMI] 30.0-30.9, adult; F41.9 Anxiety disorder, unspecified; F32.A Depression, unspecified; G89.29 Other chronic pain; E78.5 Hyperlipidemia, unspecified; I10 Essential (primary) hypertension; Z98.1 Arthrodesis status; Z87.891 Personal history of nicotine dependence; I95.81 Postprocedural hypotension; R41.0 Disorientation, unspecified; Y83.8 Other surgical procedures as the cause of abnormal reaction of the patient, or of later complication, without mention of misadventure at the time of the procedure; N99.0 Postprocedural (acute) (chronic) kidney failure; D69.6 Thrombocytopenia, unspecified; Z79.82 Long term (current) use of aspirin; F10.11 Alcohol abuse, in remission; R00.0 Tachycardia, unspecified
CPT/HCPCS: 36415; 36416; 36430; 36573; 36592; 36600; 51702; 70450; 71045; 72100; 74176; 76000; 80048; 80051; 80053; 82330; 82803; 82805; 82962; 83605; 84443; 84484; 85014; 85018; 85025; 85362; 85378; 85384; 85610; 85730; 86850; 86900; 86920; 87040; 87070; 87205; 92507; 92523; 92526; 92610; 93005; 93306; 94002; 94003; 94799; 96372; 96376; 97110; 97116; 97161; 97530; C1713; C1762; C9113; C9359; J0330; J0690; J1100; J1170; J1644; J1720; J1815; J2250; J2270; J2371; J2405; J2543; J2704; J2710; J3010; J3370; J3490; J7030; J7060; J7070; P9016; P9040; P9045

== ENCOUNTER → 2022-11-18 14:28 | Outpatient (BNVA) | payer BC, SELFPAY | PROVIDERS: PCP Nurse Practitioner Family; Visit Provider Physician Assistant | DX: Z47.89 Encounter for other orthopedic aftercare (principal); Z98.1 Arthrodesis status | CPT/HCPCS: 72100; 80053; 85025 ==

== ENCOUNTER → 2022-12-09 14:30 | Outpatient (BNVA) | payer BC, SELFPAY | PROVIDERS: PCP Nurse Practitioner Family; Visit Provider Nurse Practitioner Family | DX: D64.9 Anemia, unspecified (principal); R79.89 Other specified abnormal findings of blood chemistry | CPT/HCPCS: 80053; 85025 ==

== ENCOUNTER → 2022-12-16 13:52 | Outpatient (BNVA) | payer BC, SELFPAY | PROVIDERS: PCP Nurse Practitioner Family; Visit Provider Physician Assistant | DX: Z98.1 Arthrodesis status (principal); Z47.89 Encounter for other orthopedic aftercare | CPT/HCPCS: 72100 ==

== ENCOUNTER → 2022-12-30 10:31 | Outpatient (BNVA) | payer BC, SELFPAY | PROVIDERS: PCP Nurse Practitioner Family; Visit Provider Nurse Practitioner Family | DX: D64.9 Anemia, unspecified (principal); E03.9 Hypothyroidism, unspecified; E78.5 Hyperlipidemia, unspecified | CPT/HCPCS: 80053; 80061; 84443; 85025 ==

== ENCOUNTER → 2023-01-27 14:06 | Outpatient (BNVA) | payer BC, SELFPAY | PROVIDERS: PCP Nurse Practitioner Family; Visit Provider Physician Assistant | DX: Z47.89 Encounter for other orthopedic aftercare (principal); Z98.1 Arthrodesis status | CPT/HCPCS: 72100 ==

== ENCOUNTER → 2023-05-06 13:14 | Outpatient (BNVA) | payer BC, SELFPAY | PROVIDERS: PCP Nurse Practitioner Family; Visit Provider Orthopaedic Surgery | DX: Z47.89 Encounter for other orthopedic aftercare; Z98.1 Arthrodesis status | CPT/HCPCS: 72100 ==

== ENCOUNTER → 2023-09-05 10:13 | Outpatient (BNVA) | payer BC, SELFPAY | PROVIDERS: PCP Nurse Practitioner Family; Visit Provider Nurse Practitioner Family | DX: I10 Essential (primary) hypertension (principal); R73.9 Hyperglycemia, unspecified | CPT/HCPCS: 80053; 80061; 82607; 83036; 84443; 85025; G0103 ==

== ENCOUNTER → 2023-10-20 12:46 | Outpatient (BNVA) | payer BC, SELFPAY | PROVIDERS: PCP Nurse Practitioner Family; Visit Provider Orthopaedic Surgery | DX: Z98.1 Arthrodesis status (principal); R79.89 Other specified abnormal findings of blood chemistry | CPT/HCPCS: 72100; 80053 ==

== ENCOUNTER → 2023-11-11 08:52 | Outpatient (BNVA) | payer BC, SELFPAY | PROVIDERS: PCP Nurse Practitioner Family; Visit Provider Nurse Practitioner Family | DX: E87.1 Hypo-osmolality and hyponatremia (principal) | CPT/HCPCS: 80048 ==

== ENCOUNTER → 2024-07-26 12:07 | Outpatient (BNVA) | payer BC, SELFPAY | PROVIDERS: PCP Nurse Practitioner Family; Visit Provider Nurse Practitioner Family | DX: I10 Essential (primary) hypertension (principal); E78.5 Hyperlipidemia, unspecified; R73.9 Hyperglycemia, unspecified | CPT/HCPCS: 80053; 80061; 82607; 83036; 83735; 84443; 85025 ==

== ENCOUNTER → 2024-12-26 14:57 | Outpatient (BNVA) | payer BC, SELFPAY | PROVIDERS: PCP Nurse Practitioner Family; Visit Provider Nurse Practitioner Family | DX: R06.02 Shortness of breath (principal); M79.89 Other specified soft tissue disorders; I10 Essential (primary) hypertension; E78.5 Hyperlipidemia, unspecified; J98.11 Atelectasis | CPT/HCPCS: 71046; 80053; 80061; 83036; 83880; 84443; 85025 ==

== ENCOUNTER → 2025-01-02 14:17 | Outpatient (BNVA) | payer BC, SELFPAY | PROVIDERS: PCP Nurse Practitioner Family; Visit Provider Nurse Practitioner Family | DX: R79.89 Other specified abnormal findings of blood chemistry (principal); E03.9 Hypothyroidism, unspecified; Z12.5 Encounter for screening for malignant neoplasm of prostate | CPT/HCPCS: 80053; 84443; 85025; G0103 ==

== ENCOUNTER 2025-01-07 07:00 | Outpatient (CLI) | payer BC, SELFPAY ==
--- NOTE | 2025-01-07 07:15 | US_ITS ---
WS: [id number] RIGHT UPPER QUADRANT ULTRASOUND HISTORY: R79.89 - Other specified abnormal findings of blood chemi... COMPARISON: 07/16/2022 Liver: 17.4 cm in length. Liver is slightly enlarged. Coarse echotexture with loss of the normal portal triads. Portions of the liver are not visualized due to attenuation. No mass or intrahepatic duct dilatation. Portal Vein: Normal hepatopetal flow with monophasic waveform. Gallbladder: Normally distended gallbladder with no stones or wall thickening. No polyp or sludge identified today. CBD: 0.3 cm Pancreas: Portions of the head and tail are obscured. The body is negative. Right kidney: 10.1 cm in length. Normal size and echogenicity. No hydronephrosis or mass. Aorta and IVC: Unremarkable abdominal aorta and IVC. No ascites. US/US liver [id number] IMPRESSION: 1. Negative gallbladder. 2. Mild hepatomegaly with moderate to severe hepatic steatosis. 3. Partially obscured pancreas.
== END 2025-01-07 07:01 | disposition home or self-care (01) ==
LOC: RAD 07:02
PROVIDERS: PCP Nurse Practitioner Family; Visit Provider Nurse Practitioner Family
DX: R79.89 Other specified abnormal findings of blood chemistry (principal); R16.0 Hepatomegaly, not elsewhere classified; K76.0 Fatty (change of) liver, not elsewhere classified
CPT/HCPCS: 76705